=== PATIENT | female | born 1945 | race Caucasian/White ===

== ENCOUNTER 2017-04-03 08:55 | Day surgery (SDC) | payer MEDICARE, BC ==
[2017-04-03] MEDS ORDERED: ONDANSETRON HCL INJ/PF 4 MG/2 ML SDV ONE (08:58)
[2017-04-03] MEDS ORDERED: DIPHENHYDRAMINE HCL 50 MG/ML VIAL ONE (08:58)
[2017-04-03] MEDS ORDERED: NALOXONE HCL INJ/PF 0.4 MG/1 ML SDV ONE (08:58)
[2017-04-03] MEDS ORDERED: MIDAZOLAM 2 MG/2 ML INJ ONE (08:59)
[2017-04-03] MEDS ORDERED: EPINEPHRINE INJ 1 MG/10 ML DISP.SYRIN ONE (08:59)
[2017-04-03] MEDS ORDERED: FENTANYL CITRATE INJ/PF 100 MCG/2 ML AMPUL ONE (08:59)
[2017-04-03] MEDS ORDERED: GLUCAGON,HUMAN RECOMB 1 MG INJ ONE (08:59)
[2017-04-03] MEDS ORDERED: FLUMAZENIL INJ 0.5 MG/5 ML VIAL IV ONE (08:59)
[2017-04-03] MEDS: MIDAZOLAM 2 MG/2 ML INJ ONE ×2 (09:21→09:25)
--- NOTE | 2017-04-03 09:41 | Operative Report ---
Operative Report DATE OF SURGERY: 04/03/17 Operative Report: The risks, benefits and alternatives of the procedure including risks of bleeding, perforation requiring surgery are explained to the patient detail and informed consent was obtained. Patient was placed in the left, lateral decubital position. Timeout was called. Conscious sedation medications are provided. An Olympus videoscope was inserted into the patient's rectum. The scope was then gradually advanced all the way to the anastomosis. Patient does have a side to side anastomosis. Scope was then withdrawn, retroflexion maneuver is performed. PREOPERATIVE DIAGNOSIS: Personal history of polyps. Previous colon resection POSTOPERATIVE DIAGNOSIS: 2 polyps removed via snare polypectomy slightly distal to the anastomotic site. Both polyps are retrieved. OPERATION: Colonoscopy with snare polypectomy SURGEON: DILMA BATISTA ANESTHESIA: Moderate Sedation - 4 mg of Versed, 75 mcg of fentanyl. Conscious sedation monitoring time 30 minutes. TISSUE REMOVED OR ALTERED: Polyps retrieved. COMPLICATIONS: None. ESTIMATED BLOOD LOSS: None. INTRAOPERATIVE FINDINGS: As described above. PROCEDURE: Patient tolerated the procedure well. No immediate postprocedure complications are noted. Patient discharged in good condition. Discharge date 04/03/2017. Discharge diet: Regular. Discharge activity: Regular. 2-3 week follow-up to discuss findings. We will wait on pathology. Patient is instructed to call the office or proceed to the emergency room should there be any further problems or questions. 3 year surveillance colonoscopy.
[2017-04-03 10:54] VITALS: BP 112/50
== END 2017-04-03 10:45 | disposition home or self-care (01) ==
LOC: END 08:55
PROVIDERS: ATTEND Internal Medicine Gastroenterology
PROC: 0DBE8ZX Excision of Large Intestine, Via Natural or Artificial Opening Endoscopic, Diagnostic (ICD-10-PCS; principal; 2017-04-03 10:00)
DX: K63.5 Polyp of colon (principal); Z90.49 Acquired absence of other specified parts of digestive tract; I10 Essential (primary) hypertension; K21.9 Gastro-esophageal reflux disease without esophagitis; Z88.2 Allergy status to sulfonamides; Z88.5 Allergy status to narcotic agent
CPT/HCPCS: 45385; 88305 ×2; J2250; J3010; J1610; J0171; J1200; J2310; J2405; J3490

== ENCOUNTER → 2017-09-04 | Outpatient (CLI) | payer MEDICARE, BC ==
--- NOTE | 2017-09-04 16:30 | RADIOLOGY REPORT (SQ) ---
EXAM DESCRIPTION: BONE SURVEY COMPLETE COMPLETED DATE/TIME: 09/04/2017 3:07 pm REASON FOR STUDY: D47.2 MONOCLONAL GAMMOPATHY COMPARISON: None. TECHNIQUE: Images of the axial and proximal appendicular skeleton are obtained, along with lateral s kull and frontal chest films. LIMITATIONS: Overlying bowel gas. FINDINGS: AP CHEST: No bony findings. Lungs are clear. LATERAL SKULL: No worrisome bone lesions. AP BOTH HUMERI: No worrisome bone lesions. TWO-VIEW LUMBAR SPINE: No worrisome bone lesions. TWO-VIEW THORACIC SPINE: No worrisome bone lesions. AP PELVIS: No worrisome bone lesions. AP BOTH FEMURS: No worrisome bone lesions. OTHER: No other significant finding. IMPRESSION: Negative bone survey.
== END ==
LOC: RAD 14:51
PROVIDERS: ATTEND Internal Medicine Hematology & Oncology
DX: D47.2 Monoclonal gammopathy (principal)
CPT/HCPCS: 77075

== ENCOUNTER 2018-09-25 03:49 | Inpatient (IN) | payer MEDICARE, BC ==
[2018-09-25 05:02] LABS: ABSOLUTE LYMPHOCYTES (AUTO) 0.7 10^3/uL (0.5-4.7); ABSOLUTE MONOCYTES (AUTO) 0.7 10^3/uL (0.1-1.4); ABSOLUTE NEUT (AUTO) 6.4 10^3/uL (1.7-8.2); BASOPHILS % (AUTO) 0.1 % (0-2); EOSINOPHILS % (AUTO) 0.1 % (0-6); HEMATOCRIT 35.7 % (36.0-47.0); HEMOGLOBIN 11.8 g/dL (12.0-15.5); LYMPHOCYTES % (AUTO) 9.3 % (13-45); MEAN CORPUSCULAR HEMOGLOBIN 25.6 pg (27.0-33.4); MEAN CORPUSCULAR HGB CONC 32.9 g/dL (32.0-36.0); MEAN CORPUSCULAR VOLUME 78 fl (80-97); PLATELET COUNT 644 10^3/uL (150-450); RED BLOOD COUNT 4.59 10^6/uL (3.72-5.28); RED CELL DISTRIBUTION WIDTH 14.2 % (11.5-14.0); SEGMENTED NEUTROPHILS % (AUTO) 81.5 % (42-78); TOTAL CELLS COUNTED % (AUTO) 100 %; WHITE BLOOD COUNT 7.9 10^3/uL (4.0-10.5)
[2018-09-25 05:23] LABS: ALANINE AMINOTRANSFERASE 38 U/L (9-52); ALBUMIN 4.5 g/dL (3.5-5.0); ALKALINE PHOSPHATASE 111 U/L (38-126); ANION GAP 13 (5-19); ASPARTATE AMINO TRANSFERASE 37 U/L (14-36); BILIRUBIN,DIRECT 0.4 mg/dL (0.0-0.4); BILIRUBIN,TOTAL 1.5 mg/dL (0.2-1.3); BLOOD UREA NITROGEN 41 mg/dL (7-20); CALCIUM 9.7 mg/dL (8.4-10.2); CARBON DIOXIDE 35 mmol/L (22-30); CHLORIDE 91 mmol/L (98-107); GLUCOSE 156 mg/dL (75-110); POTASSIUM 3.6 mmol/L (3.6-5.0); SODIUM 138.5 mmol/L (137-145); TOTAL PROTEIN 7.3 g/dL (6.3-8.2)
[2018-09-25] MEDS ORDERED: RINGERS SOLUTION,LACTATED 1,000 ML IV ONE ×2 (05:35→06:28)
[2018-09-25] MEDS ORDERED: ONDANSETRON HCL INJ/PF 4 MG/2 ML SDV IV ONE (05:35)
--- NOTE | 2018-09-25 05:38 | ER Document Report ---
ED Medical Screen (RME) - General Chief Complaint: Nausea/Vomiting Stated Complaint: NAUSEA/VOMITING Time Seen by Provider: 09/25/18 05:34 Notes: Patient is a 73-year-old female who presents to the emergency department with a chief complaint of vomiting. She states that her symptoms started 2 days ago. She is also complaining of abdominal cramping. She has a history of colon cancer with a colon resection and states that she does get constipated at times. She has had this before. TRAVEL OUTSIDE OF THE [place] IN LAST 30 DAYS: No - Related Data Allergies/Adverse Reactions: Sulfa (Sulfonamide Antibiotics) Allergy (Verified 04/03/17 09:06) Generalized Itching codeine [Codeine] Adverse Reaction (Mild, Verified 04/03/17 09:06) Nausea Past Medical History - Past Medical History Cardiac Medical History: Reports: Hx Hypertension Denies: Hx Coronary Artery Disease, Hx Heart Attack Pulmonary Medical History: Denies: Hx Asthma, Hx Bronchitis, Hx COPD, Hx Pneumonia Neurological Medical History: Denies: Hx Cerebrovascular Accident, Hx Seizures Renal/ Medical History: Denies: Hx Peritoneal Dialysis GI Medical History: Reports: Hx Hiatal Hernia. Denies: Hx Hepatitis, Hx Ulcer Musculoskeltal Medical History: Denies Hx Arthritis Infectious Medical History: Denies: Hx Hepatitis Past Surgical History: Reports: Hx Abdominal Surgery, Hx Appendectomy, Hx Cholecystectomy, Hx Hysterectomy. Denies: Hx Mastectomy, Hx Open Heart Surgery, Hx Pacemaker - Immunizations Hx Diphtheria, Pertussis, Tetanus Vaccination: Yes Physical Exam - Vital signs Vitals: Temp Pulse Resp BP Pulse Ox 98.2 F 105 H 18 117/56 L 100 09/25/18 03:57 09/25/18 03:57 09/25/18 03:57 09/25/18 03:57 09/25/18 03:57 - Abdominal Tenderness: Tender - Generalized Course - Vital Signs Vital signs: Temp Pulse Resp BP Pulse Ox 98.2 F 105 H 18 117/56 L 100 09/25/18 03:57 09/25/18 03:57 09/25/18 03:57 09/25/18 03:57 09/25/18 03:57 - Laboratory Result Diagrams: 09/25/18 04:57 09/25/18 04:57 Laboratory results interpreted by me: 09/25/18 09/25/18 04:57 04:57 Hgb 11.8 L Hct 35.7 L MCV 78 L MCH 25.6 L RDW 14.2 H Plt Count 644 H Seg Neutrophils % 81.5 H Lymphocytes % 9.3 L Chloride 91 L Carbon Dioxide 35 H BUN 41 H Est GFR (Non-Af Amer) 56 L Glucose 156 H Total Bilirubin 1.5 H AST 37 H Doctor's Discharge - Discharge Referrals: PATRICIA QUARLES MD [Primary Care Provider] - Follow up as needed
--- NOTE | 2018-09-25 06:54 | ER Document Report ---
ED General - General Chief Complaint: Nausea/Vomiting Stated Complaint: NAUSEA/VOMITING Time Seen by Provider: 09/25/18 05:34 Notes: Patient is a 73-year-old female with history of colon resection that presents to the emergency department for chief complaint of abdominal pain, nausea and vomiting. Patient reports that her symptoms started around 11 AM on Sunday, she is had 4-5 episodes of vomiting per day, she has not been passing gas and not had a bowel movement since then, she states and trying to have a bowel movement, but nothing comes out. Has had multiple colon resections and anastomoses in the past. She is currently rating her pain as a 6 out of 10 describes as a constant aching sensation across her abdomen, and is diffuse. She denies noting any fevers, chills, night sweats, dysuria, hematuria, chest pain or shortness of breath. Past Medical History: Colon cancer status post resection in remission Past Surgical History: Multiple abdominal surgeries including 2 colon resections with anastomosis, cholecystectomy, hysterectomy Social History: Denies tobacco, alcohol or drug use. Family History: Reviewed and noncontributory for presenting illness Allergies: Reviewed, see documented allergy list. REVIEW OF SYSTEMS: Other than noted above, the 12 point review of systems was reviewed with the patient and were negative, all pertinent findings are included in the HPI. PHYSICAL EXAMINATION: Vital signs reviewed, nursing noted reviewed. GENERAL: Elderly female, appears uncomfortable on my exam HEAD: Atraumatic, normocephalic. EYES: Eyes appear normal, extraocular movements intact, sclera anicteric, conjunctiva are normal. ENT: nares patent, oropharynx clear without exudates. Moist mucous membranes. NECK: Normal range of motion, supple without lymphadenopathy LUNGS: Breath sounds clear to auscultation bilaterally and equal. No wheezes rales or rhonchi. HEART: Regular rate and rhythm without murmurs ABDOMEN: Soft, mildly distended, and tender to palpate diffusely, normoactive bowel sounds. No rebound, guarding, or rigidity. No masses appreciated. EXTREMITIES: Nontender, good range of motion, no pitting or edema. NEUROLOGICAL: No focal neurological deficits. Moves all extremities spontan eously Motor and sensory grossly intact on exam. PSYCH: Normal mood, normal affect. SKIN: Warm, Dry, normal turgor, no rashes or lesions noted on exposed skin TRAVEL OUTSIDE OF THE [place] IN LAST 30 DAYS: No - Related Data Allergies/Adverse Reactions: Sulfa (Sulfonamide Antibiotics) Allergy (Verified 04/03/17 09:06) Generalized Itching codeine [Codeine] Adverse Reaction (Mild, Verified 04/03/17 09:06) Nausea Past Medical History - Social History Smoking Status: Unknown if Ever Smoked Family History: Reviewed & Not Pertinent Patient has suicidal ideation: No Patient has homicidal ideation: No - Past Medical History Cardiac Medical History: Reports: Hx Hypertension Denies: Hx Coronary Artery Disease, Hx Heart Attack Pulmonary Medical History: Denies: Hx Asthma, Hx Bronchitis, Hx COPD, Hx Pneumonia Neurological Medical History: Denies: Hx Cerebrovascular Accident, Hx Seizures Renal/ Medical History: Denies: Hx Peritoneal Dialysis GI Medical History: Reports: Hx Hiatal Hernia. Denies: Hx Hepatitis, Hx Ulcer Musculoskeletal Medical History: Denies Hx Arthritis Infectious Medical History: Denies: Hx Hepatitis Past Surgical History: Reports: Hx Abdominal Surgery, Hx Appendectomy, Hx Cholecystectomy, Hx Hysterectomy. Denies: Hx Mastectomy, Hx Open Heart Surgery, Hx Pacemaker - Immunizations Hx Diphtheria, Pertussis, Tetanus Vaccination: Yes Hx Pneumococcal Vaccination: 06/24/14 Physical Exam - Vital signs Vitals: Temp Pulse Resp BP Pulse Ox 98.2 F 105 H 18 117/56 L 100 09/25/18 03:57 09/25/18 03:57 09/25/18 03:57 09/25/18 03:57 09/25/18 03:57 Course - Re-evaluation Re-evalutation: Patient seen and examined vital signs reviewed. Laboratory data and imaging were ordered as appropriate for the patient's presenting symptoms and complaint, with consideration of any critical or life threatening conditions that may be associated with their obtained history and exam as noted above. Patient was treated with IV fluid bolusing x2, given Zofran for her nausea, and a dose of Phenergan when she was having continued nausea after receiving oral contrast dye. Initially blood work and KUB was ordered, KUB demonstrates some dilated loops of small bowel, therefore CT of the abdomen and pelvis with IV and oral contrast was ordered, this redemonstrated possible partial obstruction versus ileus, with narrowing at her distal anastomosis site. Results were reviewed when available and demonstrated no leukocytosis, did demonstrate prerenal azotemia, I discussed this case with the surgeon on-call, who came to evaluate the patient, he is considering small bowel follow-through study however the patient still having persistent nausea so he decided to admit the patient for observation, and further evaluation. On her UA it was noted to have positive nitrates in her urine, this will be sent for culture, she was given a dose of Rocephin to treat this as well. The patient was re-evaluated and was improved after treatments, but still having some discomfort Evaluation was most consistent with partial small bowel obstruction, abdominal pain. Results were discussed with the patient at this point after careful consideration I feel that that patient should be admitted to the hospital. This was discussed with the patient that it is in the best interest for their care to be admitted for further evaluation and management. Patient agreed with this plan of care. A call was placed to the admitted physician, Dr. Lovelace who graciously accepted the patient onto their service. *Note is created using voice recognition software and may contain spelling, syntax or grammatical errors. Laboratory 09/25/18 09/25/18 09/25/18 04:57 04:57 07:40 WBC 7.9 RBC 4.59 Hgb 11.8 L Hct 35.7 L MCV 78 L MCH 25.6 L MCHC 32.9 RDW 14.2 H Plt Count 644 H Seg Neutrophils % 81.5 H Lymphocytes % 9.3 L Monocytes % 9.0 Eosinophils % 0.1 Basophils % 0.1 Absolute Neutrophils 6.4 Absolute Lymphocytes 0.7 Absolute Monocytes 0.7 Absolute Eosinophils 0.0 Absolute Basophils 0.0 Sodium 138.5 Potassium 3.6 Chloride 91 L Carbon Dioxide 35 H Anion Gap 13 BUN 41 H Creatinine 0.98 Est GFR ( Amer) > 60 Est GFR (Non-Af Amer) 56 L Glucose 156 H Calcium 9.7 Total Bilirubin 1.5 H Direct Bilirubin 0.4 Neonat Total Bilirubin Not Reportable Neonat Direct Bilirubin Not Reportable Neonat Indirect Bili Not Reportable AST 37 H ALT 38 Alkaline Phosphatase 111 Total Protein 7.3 Albumin 4.5 Urine Color DARK YELLOW Urine Appearance CLOUDY Urine pH 5.0 Ur Specific [place] 1.016 Urine Protein 30 H Urine Glucose (UA) NEGATIVE Urine Ketones NEGATIVE Urine Blood NEGATIVE Urine Nitrite POSITIVE H Urine Bilirubin NEGATIVE Urine Urobilinogen 2.0 H Ur Leukocyte Esterase TRACE H Urine WBC (Auto) 22 Urine RBC (Auto) 1 U Hyaline Cast (Auto) 18 Urine Bacteria (Auto) 3+ Squamous Epi Cells Auto 25 Urine Mucus (Auto) OCC Urine Ascorbic Acid NEGATIVE Abdomen/Pelvis CT 09/25/18 00:00 IMPRESSION: Ileus or partial small bowel obstruction status post multiple bowel surgeries. No high-grade obstruction. Abdomen X-Ray 09/25/18 06:29 IMPRESSION: Difficult to exclude developing small bowel obstruction. Recommend CT. KUB X-Ray 09/25/18 12:03 IMPRESSION: NG tube appears to be in satisfactory position. - Vital Signs Vital signs: Temp Pulse Resp BP Pulse Ox 98.1 F 78 18 148/62 H 99 09/25/18 13:42 09/25/18 13:42 09/25/18 13:42 09/25/18 13:42 09/25/18 13:42 - Laboratory Result Diagrams: 09/25/18 04:57 09/25/18 04:57 Laboratory results interpreted by me: 09/25/18 09/25/18 09/25/18 04:57 04:57 07:40 Hgb 11.8 L Hct 35.7 L MCV 78 L MCH 25.6 L RDW 14.2 H Plt Count 644 H Seg Neutrophils % 81.5 H Lymphocytes % 9.3 L Chloride 91 L Carbon Dioxide 35 H BUN 41 H Est GFR (Non-Af Amer) 56 L Glucose 156 H Total Bilirubin 1.5 H AST 37 H Urine Protein 30 H Urine Nitrite POSITIVE H Urine Urobilinogen 2.0 H Ur Leukocyte Esterase TRACE H Discharge - Discharge Clinical Impression: Partial small bowel obstruction UTI (urinary tract infection) Qualifiers: Urinary tract infection type: site unspecified Hematuria presence: without hematuria Qualified Code(s): N39.0 - Urinary tract infection, site not specified Abdominal pain Qualifiers: Abdominal location: unspecified location Qualified Code(s): R10.9 - Unspecified abdominal pain Nausea and vomiting Qualifiers: Vomiting type: unspecified Vomiting Intractability: unspecified Qualified Code(s): R11.2 - Nausea with vomiting, unspecified Condition: Stable Disposition: ADMITTED OBSERVATION Admitting Provider: Surgicalist - Dr. Lovelace Unit Admitted: Surgical Floor
--- NOTE | 2018-09-25 07:21 | RADIOLOGY REPORT (SQ) ---
CLINICAL HISTORY: abdominal pain, vomiting COMPARISON: None. TECHNIQUE: XR ABDOMEN 2 VIEWS SUPINE ERECT 09/25/2018 6:29 AM RUG SIZER FINDINGS: There are several mildly dilated small bowel loops in the central abdomen. There are extensive surgical clips throughout the pelvis and lower abdomen with suture lines in the right lower quadrant and at the level of the rectum. There are no abnormal radiopaque foreign bodies or abnormal calcifications. Osseous structures are grossly unremarkable. IMPRESSION: Difficult to exclude developing small bowel obstruction. Recommend CT.
[2018-09-25 08:11] LABS: APPEARANCE,URINE CLOUDY; BILIRUBIN,URINE NEGATIVE (NEGATIVE); GLUCOSE, URINE NEGATIVE (NEGATIVE); KETONES,URINE NEGATIVE (NEGATIVE); LEUKOCYTE ESTERASE,URINE TRACE (NEGATIVE); NITRITE,URINE POSITIVE (NEGATIVE); PROTEIN,URINE 30 mg/dL (NEGATIVE); URINE SPECIFIC GRAVITY 1.016
[2018-09-25 08:12] LABS: COLOR,URINE DARK YELLOW
[2018-09-25] MEDS ORDERED: CEFTRIAXONE INJ 1000 MG VIAL IV ONE (08:21)
[2018-09-25] MEDS ORDERED: PROMETHAZINE HCL INJ 25 MG/1 ML VIAL IV ONE (09:27)
--- NOTE | 2018-09-25 10:46 | RADIOLOGY REPORT (SQ) ---
EXAM DESCRIPTION: CT ABD/PELVIS WITH IV ORAL COMPLETED DATE/TIME: 09/25/2018 10:32 am REASON FOR STUDY: abdominal pain, possible obstruction COMPARISON: 05/26/2014 TECHNIQUE: CT scan of the abdomen and pelvis performed using helical scanning technique with dynamic intravenous contrast injection. No oral contrast. Images reviewed with lung, soft tissue, and bone windows. Reconstructed coronal and sagittal MPR images reviewed. Delayed images for evaluation of the urinary system also acquired. All images stored on PACS. All CT scanners at this facility use dose modulation, iterative reconstruction, and/or weight based d osing when appropriate to reduce radiation dose to as low as reasonably achievable (ALARA). [facility]: Dose Right [facility]: CareDose [facility]: Dose Right [facility]: Teradose 4D [facility]: [employer] CONTRAST TYPE AND DOSE: contrast/concentration: Isovue 350.00 mg/ml; Total Contrast Delivered: 57.0 ml; Total Saline Delivered: 65.0 ml RENAL FUNCTION: GFR 56 RADIATION DOSE: CT Rad equipment meets quality standard of care and radiation dose reduction techniq ues were employed. CTDIvol: 4.8 - 5.0 mGy. DLP: 503 mGy-cm.. LIMITATIONS: Positioning. FINDINGS: LOWER CHEST: No significant findings. No nodules or infiltrates. LIVER: Normal size. No masses. No dilated ducts. SPLEEN: Normal size. No focal lesions. PANCREAS: No masses. No significant calcifications. No adjacent inflammation or peripancreatic fluid collections. Pancreatic duct not dilated. GALLBLADDER: Surgically absent. ADRENAL GLANDS: No significant masses or asymmetry. RIGHT KIDNEY AND URETER: No solid masses. No significant calcifications. No hydronephrosis or hyd roureter. LEFT KIDNEY AND URETER: No solid masses. No significant calcifications. No hydronephrosis or hydr oureter. AORTA AND VESSELS: No aneurysm. No dissection. Renal arteries, SMA, celiac without stenosis. RETROPERITONEUM: No retroperitoneal adenopathy, hemorrhage or masses. BOWEL AND PERITONEAL CAVITY: Mild gastric distention. Mildly dilated loops of small bowel status pos t several bowel anastomosis. At least 2 transition points, 1 in the right lower quadrant series 601, image 37, another in the left lower quadrant series 601, image 35. Fecal material within nondilated descending colon. No free air or ascites. APPENDIX: Surgically absent. PELVIS: No mass. No free fluid. Normal bladder. ABDOMINAL WALL: No masses. No hernias. BONES: Nothing acute. OTHER: No other significant finding. IMPRESSION: Ileus or partial small bowel obstruction status post multiple bowel surgeries. No high- grade obstruction. TECHNICAL DOCUMENTATION: JOB ID: [id number] Quality ID # [id number]: Final reports with documentation of one or more dose reduction techniques (e.g., Au tomated exposure control, adjustment of the mA and/or kV according to patient size, use of iterative reconstruction technique) 2010 [employer]- All Rights Reserved Reading location - IP/workstation name: [email or web address]
--- NOTE | 2018-09-25 12:01 | PDOC H&P ---
History of Present Illness Admission Date/PCP: PATRICIA QUARLES MD Patient complains of: Abdominal pain nausea and vomiting History of Present Illness: SANDY WILL is a 73 year old female with a 2-day history of abdominal bloating nausea and vomiting. Because of increasing abdominal pain and distention she came to the emergency room today. She has had these episodes previous at home which have resolved spontaneously but this 1 has not. Past Medical History Cardiac Medical History: Reports: Hypertension Denies: Coronary Artery Disease, Myocardial Infarction Pulmonary Medical History: Denies: Asthma, Bronchitis, Chronic Obstructive Pulmonary Disease (COPD), Pneumonia Neurological Medical History: Denies: Seizures GI Medical History: Reports: Hiatal Hernia Denies: Hepatitis Musculoskeltal Medical History: Denies: Arthritis Hematology: Reports: Anemia - RECENTLY B12 INJ (FOR 4 WEEKS) Denies: Sickle Cell Disease Past Surgical History Past Surgical History: Patient has a history of colectomy x3 for multiple colon cancers Past Surgical History: Reports: Appendectomy, Cholecystectomy, Hysterectomy Denies: Amputation, Mastectomy, Pacemaker Social History Smoking Status: Unknown if Ever Smoked Family History Family History: Reviewed & Not Pertinent Parental Family History Reviewed: No Children Family History Reviewed: No - Noncontributory Sibling(s) Family History Reviewed.: No - Noncontributory Medication/Allergy Home Medications: Esomeprazole Magnesium [Nexium] 40 mg PO DAILY 06/02/14 Estrogens, Conjugated [Premarin] 1.25 mg PO DAILY 06/02/14 Valsartan [Diovan 40 mg Tablet] 40 mg PO DAILY 06/02/14 Multivit with Calcium,Iron,Min [Multiple Vitamins For Women] 1 each PO DAILY 03/29/17 Vit B 12 1 mcg IM Q7D 03/29/17 Ergocalciferol (Vitamin D2) [Vitamin D] 50,000 unit PO 04/03/17 Allergies/Adverse Reactions: Sulfa (Sulfonamide Antibiotics) Allergy (Verified 04/03/17 09:06) Generalized Itching codeine [Codeine] Adverse Reaction (Mild, Verified 04/03/17 09:06) Nausea Physical Exam Vital Signs: Temp Pulse Resp BP Pulse Ox 97.9 F 79 18 151/44 H 98 09/25/18 07:45 09/25/18 11:02 09/25/18 11:02 09/25/18 11:09/25/18 11:02 Intake & Output 09/24/18 09/25/18 09/26/18 06:59 06:59 06:59 Intake Total 1000 1000 Balance 1000 1000 Weight 50 kg General appearance: PRESENT: mild distress Head exam: PRESENT: normocephalic Eye exam: PRESENT: EOMI, PERRLA Mouth exam: PRESENT: dry mucosa Respiratory exam: PRESENT: symmetrical, unlabored Cardiovascular exam: PRESENT: RRR Pulses: PRESENT: normal carotid pulses Vascular exam: PRESENT: normal capillary refill GI/Abdominal exam: PRESENT: distended, firm, guarding, other - Dental exam shows that she is tender lower quadrant with palpation a firm abdomen with distention no evidence of any peritoneal signs Extremities exam: PRESENT: full ROM Musculoskeletal exam: PRESENT: ambulatory Neurological exam: PRESENT: alert, awake, oriented to time, oriented to situation Skin exam: PRESENT: dry Results Laboratory Results: 09/25/18 04:57 09/25/18 04:57 09/25/18 09/25/18 09/25/18 04:57 04:57 07:40 WBC 7.9 RBC 4.59 Hgb 11.8 L Hct 35.7 L MCV 78 L MCH 25.6 L MCHC 32.9 RDW 14.2 H Plt Count 644 H Seg Neutrophils % 81.5 H Lymphocytes % 9.3 L Monocytes % 9.0 Eosinophils % 0.1 Basophils % 0.1 Absolute Neutrophils 6.4 Absolute Lymphocytes 0.7 Absolute Monocytes 0.7 Absolute Eosinophils 0.0 Absolute Basophils 0.0 Sodium 138.5 Potassium 3.6 Chloride 91 L Carbon Dioxide 35 H Anion Gap 13 BUN 41 H Creatinine 0.98 Est GFR ( Amer) > 60 Est GFR (Non-Af Amer) 56 L Glucose 156 H Calcium 9.7 Total Bilirubin 1.5 H AST 37 H ALT 38 Alkaline Phosphatase 111 Total Protein 7.3 Albumin 4.5 Urine Color DARK YELLOW Urine Appearance CLOUDY Urine pH 5.0 Ur Specific [place] 1.016 Urine Protein 30 H Urine Glucose (UA) NEGATIVE Urine Ketones NEGATIVE Urine Blood NEGATIVE Urine Nitrite POSITIVE H Ur Leukocyte Esterase TRACE H Urine WBC (Auto) 22 Urine RBC (Auto) 1 Impressions: Abdomen/Pelvis CT 09/25/18 00:00 IMPRESSION: Ileus or partial small bowel obstruction status post multiple bowel surgeries. No high-grade obstruction. Abdomen X-Ray 09/25/18 06:29 IMPRESSION: Difficult to exclude developing small bowel obstruction. Recommend CT. Assessment & Plan - Plan Summary Plan Summary: Is a 73-year-old female who is undergone 3 operations for her separate colon cancers on CT scan looks as though she has had a subtotal colectomy with ileal anal anastomosis versus a ileosigmoid anastomosis. There is a large amount of stool in her stool small bowel just proximal to the anastomosis which may obstructed secondary to anastomotic stricture. Multiple loops of small bowel that are dilated as well as a large amount of gastric contents. Pression small bowel obstruction possibly secondary to adhesions versus a stenotic stricture And will give the patient enemas in the emergency room and admit her for observation she may need diagnostic colonoscopy is laparotomy small bowel obstruction
[2018-09-25] MEDS ORDERED: PROMETHAZINE HCL INJ 25 MG/1 ML VIAL IV PRN (12:03)
[2018-09-25] MEDS ORDERED: FAMOTIDINE INJ/PF 20 MG/2 ML SDV IV ONE (12:15)
[2018-09-25] MEDS ORDERED: PHARMACY COMMUNICATION ORDER MC NR (12:15)
[2018-09-25] MEDS ORDERED: PROPOFOL INJ 200 MG/20 ML VIAL IV ONE (15:18)
--- NOTE | 2018-09-25 15:36 | RADIOLOGY REPORT (SQ) ---
EXAM DESCRIPTION: KUB/ABDOMEN (SINGLE VIEW) COMPLETED DATE/TIME: 09/25/2018 2:25 pm REASON FOR STUDY: Check Placement of NG Tube COMPARISON: 09/25/2018 NUMBER OF VIEWS: One view. TECHNIQUE: Supine radiographic image of the abdomen acquired. LIMITATIONS: None. FINDINGS: BOWEL GAS PATTERN: NG tube is in place. Tip overlies the right upper quadrant probably wi thin stomach. There is less small-bowel distention. CALCIFICATIONS: No suspicious calcifications. SOFT TISSUES: No gross mass or suggestion of organomegaly. HARDWARE: Multiple surgical clips are present throughout the abdomen and pelvis. BONES: No acute fracture. No worrisome bone lesions. OTHER: There is contrast in the right left collecting systems from recent CT. IMPRESSION: NG tube appears to be in satisfactory position. TECHNICAL DOCUMENTATION: JOB ID: [id number] [email or web address]- All Rights Reserved Reading location - IP/workstation name: [email or web address]
--- NOTE | 2018-09-25 16:27 | Operative Report ---
Operative Report DATE OF SURGERY: 09/25/18 - colonoscopy PREOPERATIVE DIAGNOSIS: r/o colonic obstruction POSTOPERATIVE DIAGNOSIS: anastomotic stricture OPERATION: colonoscopy with anastomotic dilation. SURGEON: DONNA MCDANIELS ANESTHESIA: LMAC TISSUE REMOVED OR ALTERED: none COMPLICATIONS: none ESTIMATED BLOOD LOSS: less than 5cc INTRAOPERATIVE FINDINGS: anastomotic narrowing at approx 10 cm. digitally dilated PROCEDURE: He was brought to the room in awake alert stable condition in a left lateral decubitus position after local MAC anesthesia. the pediatric colonoscope was placed into the rectum after digital examination there appeared to be at 10 cm a narrowing of the previous ileal anal anastomosis. The colonoscope easily passed through the anastomosis but the it was in fact narrowed and was dilated with digital dilation to allow the scope to pass easily We passed the scope distal to the anastomosis to a distance of approximately 60 cm there was no evidence of any obstruction passes in the small bowel. The scope was then slowly removed and examination of the distal small bowel of 60 cm there appeared to be normal without any evidence of pathology. He was then placed in a fine position which completed the procedure may brought to the procedure was less than 5 cc was transferred to recovery in stable condition
[2018-09-25] MEDS: POTASSI CL 30 MEQ/D5-1/2NS 1L 30 MEQ/1,000 ML RTUINJ IV PRN (18:03)
[2018-09-25] MEDS: FAMOTIDINE INJ/PF 20 MG/2 ML SDV IV SCH (21:51)
[2018-09-26] MEDS ORDERED: POTASSI CL 30 MEQ/D5-1/2NS 1L 30 MEQ/1,000 ML RTUINJ IV ONE (01:10)
[2018-09-26] MEDS: POTASSI CL 30 MEQ/D5-1/2NS 1L 30 MEQ/1,000 ML RTUINJ IV PRN ×3 (01:14→18:27)
[2018-09-26 06:41] LABS: ABSOLUTE LYMPHOCYTES (AUTO) 0.8 10^3/uL (0.5-4.7); ABSOLUTE MONOCYTES (AUTO) 0.7 10^3/uL (0.1-1.4); BASOPHILS % (AUTO) 0.2 % (0-2); EOSINOPHILS % (AUTO) 0.6 % (0-6); HEMATOCRIT 31.8 % (36.0-47.0); HEMOGLOBIN 10.4 g/dL (12.0-15.5); LYMPHOCYTES % (AUTO) 17.9 % (13-45); MEAN CORPUSCULAR HEMOGLOBIN 25.2 pg (27.0-33.4); MEAN CORPUSCULAR HGB CONC 32.8 g/dL (32.0-36.0); MEAN CORPUSCULAR VOLUME 77 fl (80-97); MONOCYTES % (AUTO) 14.8 % (3-13); PLATELET COUNT 504 10^3/uL (150-450); RED BLOOD COUNT 4.14 10^6/uL (3.72-5.28); RED CELL DISTRIBUTION WIDTH 13.9 % (11.5-14.0); SEGMENTED NEUTROPHILS % (AUTO) 66.5 % (42-78); TOTAL CELLS COUNTED % (AUTO) 100 %; WHITE BLOOD COUNT 4.6 10^3/uL (4.0-10.5)
[2018-09-26 06:53] LABS: ANION GAP 7 (5-19); BLOOD UREA NITROGEN 17 mg/dL (7-20); CALCIUM 8.2 mg/dL (8.4-10.2); CARBON DIOXIDE 31 mmol/L (22-30); CHLORIDE 98 mmol/L (98-107); GLUCOSE 148 mg/dL (75-110); POTASSIUM 3.8 mmol/L (3.6-5.0); SODIUM 135.9 mmol/L (137-145)
--- NOTE | 2018-09-26 08:35 | PDOC CONSULTATION ---
Consultation Consult Date: 09/26/18 Consult reason:: Hematology/Oncology consultation was requested for patient with possible small bowel obstruction and remote history of colon cancer. History of Present Illness Admission Date/PCP: 09/25/18 12:19 PATRICIA QUARLES MD History of Present Illness: SANDY WILL is a 73 year old female who was diagnosed with colon cancer in 1988 and 1990. These were 2 seperate primaries and were both early stage (I-II) and treated with surgery. She did have a short course of chemotherapy in 1990 on clinical trial, but since that time, has had no evidence of recurrent cancer. Her most recent colonoscopy was in 2016. 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 She presented this admission with a 2 day history of nausea and vomiting. Initial studies indicated a SBO, but surgical procedure yesterday did not show any evidence of mechanical obstruction. Today, she states that she is feeling a bit better. She has some abdominal pain. NG tube remains in place. Past Medical History Cardiac Medical History: Reports: Hypertension Denies: Coronary Artery Disease, Myocardial Infarction Pulmonary Medical History: Denies: Asthma, Bronchitis, Chronic Obstructive Pulmonary Disease (COPD), Pneumonia Neurological Medical History: Denies: Seizures Malignancy Medical History: Reports: Colorectal Cancer GI Medical History: Reports: Hiatal Hernia Denies: Hepatitis Musculoskeltal Medical History: Denies: Arthritis Hematology: Reports: Anemia - RECENTLY B12 INJ (FOR 4 WEEKS) Denies: Sickle Cell Disease Past Surgical History Past Surgical History: Reports: Appendectomy, Cholecystectomy, Hysterectomy, Other - Colon resection, skin biopsy Denies: Amputation, Mastectomy, Pacemaker Social History Information Source: Patient Occupation: head cook Lives with: Spouse/Significant other Smoking Status: Never Smoker Frequency of Alcohol Use: None Hx Recreational Drug Use: No Hx Prescription Drug Abuse: No - Advance Directive Resuscitation Status: Full Code Family History Family History: Grandparents with ovarian and prostate cancers. Parental Family History Reviewed: Yes - Mother with lung cancer Children Family History Reviewed: No Sibling(s) Family History Reviewed.: Yes - Sister with diabetes Medication/Allergy Home Medications: Estrogens, Conjugated [Premarin] 1.25 mg PO DAILY 06/02/14 Alendronate Sodium [Fosamax 70 mg Tablet] 70 mg PO DOMINGUEZ@1000 09/25/18 Cholecalciferol (Vitamin D3) [Vitamin D] 50,000 unit PO Q30D 09/25/18 Esomeprazole Magnesium [Nexium] 20 mg PO DAILY 09/25/18 Meloxicam [Mobic] 15 mg PO DAILY 09/25/18 Prednisone [Deltasone 1 mg Tablet] 1 mg PO DAILY 09/25/18 Valsartan/Hydrochlorothiazide [Valsartan-Hctz 80-12.5 mg Tab] 1 each PO DAILY 09/25/18 Allergies/Adverse Reactions: Sulfa (Sulfonamide Antibiotics) Allergy (Verified 04/03/17 09:06) Generalized Itching codeine [Codeine] Adverse Reaction (Mild, Verified 04/03/17 09:06) Nausea Review of Systems Constitutional: ABSENT: fever(s), headache(s) Eyes: ABSENT: visual disturbances Ears: ABSENT: hearing changes Nose, Mouth, and Throat: PRESENT: sore throat Cardiovascular: ABSENT: chest pain Respiratory: ABSENT: dyspnea Gastrointestinal: PRESENT: constipation, nausea, vomiting Genitourinary: ABSENT: dysuria Musculoskeletal: PRESENT: back pain Integumentary: ABSENT: rash Neurological: ABSENT: weakness Hematologic/Lymphatic: ABSENT: lymphadenopathy Physical Exam Vital Signs: Temp Pulse Resp BP Pulse Ox 98.3 F 76 18 121/44 L 94 09/26/18 04:04 09/26/18 04:04 09/26/18 04:04 09/26/18 04:04 09/26/18 04:04 Intake & Output 09/25/18 09/26/18 09/27/18 06:59 06:59 06:59 Intake Total 1000 2250 948 Output Total 1125 Balance 1000 1125 948 Weight 50 kg 48.9 kg General appearance: PRESENT: no acute distress, well-developed, well-nourished Exam: 73 year old female. Head exam: PRESENT: atraumatic, normocephalic Eye exam: PRESENT: EOMI, PERRLA Mouth exam: PRESENT: tongue midline Neck exam: ABSENT: lymphadenopathy, tenderness Respiratory exam: PRESENT: clear to auscultation mar, unlabored Cardiovascular exam: PRESENT: RRR. ABSENT: systolic murmur GI/Abdominal exam: PRESENT: hypoactive bowel sounds, soft, tenderness Extremities exam: ABSENT: pedal edema Musculoskeletal exam: PRESENT: normal inspection Neurological exam: PRESENT: alert, awake Psychiatric exam: PRESENT: appropriate affect Skin exam: PRESENT: normal color Results Laboratory Results: 09/26/18 06:16 09/26/18 06:16 09/26/18 09/26/18 06:16 06:16 WBC 4.6 RBC 4.14 Hgb 10.4 L Hct 31.8 L MCV 77 L MCH 25.2 L MCHC 32.8 RDW 13.9 Plt Count 504 H Seg Neutrophils % 66.5 Lymphocytes % 17.9 Monocytes % 14.8 H Eosinophils % 0.6 Basophils % 0.2 Absolute Neutrophils 3.0 Absolute Lymphocytes 0.8 Absolute Monocytes 0.7 Absolute Eosinophils 0.0 Absolute Basophils 0.0 Sodium 135.9 L Potassium 3.8 Chloride 98 Carbon Dioxide 31 H Anion Gap 7 BUN 17 Creatinine 0.55 Est GFR ( Amer) > 60 Est GFR (Non-Af Amer) > 60 Glucose 148 H Calcium 8.2 L Impressions: Abdomen/Pelvis CT 09/25/18 00:00 IMPRESSION: Ileus or partial small bowel obstruction status post multiple bowel surgeries. No high-grade obstruction. Abdomen X-Ray 09/25/18 06:29 IMPRESSION: Difficult to exclude developing small bowel obstruction. Recommend CT. KUB X-Ray 09/25/18 12:03 IMPRESSION: NG tube appears to be in satisfactory position. Status: Image reviewed by me Assessment & Plan - Diagnosis (1) Partial small bowel obstruction Is this a current diagnosis for this admission?: Yes Plan: Currently with NG tube in place. Medical management. (2) UTI (urinary tract infection) Qualifiers: Urinary tract infection type: site unspecified Hematuria presence: without hematuria Qualified Code(s): N39.0 - Urinary tract infection, site not specified Is this a current diagnosis for this admission?: Yes Plan: She received Rocephin x 1 dose in the ED, but this was not continued. I will continue this daily and check Urine culture. (3) Anemia Qualifiers: Other causes of anemia: chronic disease, other Is this a current diagnosis for this admission?: Yes Plan: Anemia has been stable, but micrycotosis and thrombycythemia are new. These may be reactive. I will check anemia panel now. She had bone marrow biopsy last year which was normal.
[2018-09-26] MEDS ORDERED: ROCURONIUM BROMIDE INJ 50 MG/5 ML VIAL IV ONE (08:39)
[2018-09-26] MEDS ORDERED: SUCCINYLCHOLINE CHLORIDE INJ 200 MG/10 ML VIAL ONE (08:39)
[2018-09-26] MEDS ORDERED: ONDANSETRON HCL INJ/PF 4 MG/2 ML SDV ONE (08:39)
[2018-09-26] MEDS ORDERED: DEXAMETHASONE SOD PHOSPHATE INJ 4 MG/1 ML VIAL ONE (08:39)
--- NOTE | 2018-09-26 08:46 | PDOC PROGRESS REPORT ---
Subjective Progress Note for:: 09/26/18 Reason For Visit: SMALL BOWEL OBSTRUCTION Physical Exam Vital Signs: Temp Pulse Resp BP Pulse Ox 99.3 F 82 15 121/58 L 95 09/26/18 08:12 09/26/18 08:12 09/26/18 08:12 09/26/18 08:12 09/26/18 08:12 Intake & Output 09/25/18 09/26/18 09/27/18 06:59 06:59 06:59 Intake Total 1000 2250 948 Output Total 1125 Balance 1000 1125 948 Weight 50 kg 48.9 kg GI/Abdominal exam: PRESENT: distended - pts abd remains distended and more tender in rlq this am hyperactive bowel sounds noted c/w sbo, tenderness Results Laboratory Results: 09/26/18 06:16 09/26/18 06:16 09/26/18 09/26/18 06:16 06:16 WBC 4.6 RBC 4.14 Hgb 10.4 L Hct 31.8 L MCV 77 L MCH 25.2 L MCHC 32.8 RDW 13.9 Plt Count 504 H Seg Neutrophils % 66.5 Lymphocytes % 17.9 Monocytes % 14.8 H Eosinophils % 0.6 Basophils % 0.2 Absolute Neutrophils 3.0 Absolute Lymphocytes 0.8 Absolute Monocytes 0.7 Absolute Eosinophils 0.0 Absolute Basophils 0.0 Sodium 135.9 L Potassium 3.8 Chloride 98 Carbon Dioxide 31 H Anion Gap 7 BUN 17 Creatinine 0.55 Est GFR ( Amer) > 60 Est GFR (Non-Af Amer) > 60 Glucose 148 H Calcium 8.2 L Impressions: Abdomen/Pelvis CT 09/25/18 00:00 IMPRESSION: Ileus or partial small bowel obstruction status post multiple bowel surgeries. No high-grade obstruction. Abdomen X-Ray 09/25/18 06:29 IMPRESSION: Difficult to exclude developing small bowel obstruction. Recommend CT. KUB X-Ray 09/25/18 12:03 IMPRESSION: NG tube appears to be in satisfactory position. Assessment & Plan - Diagnosis (1) Partial small bowel obstruction Is this a current diagnosis for this admission?: Yes - Time Time Spent with patient: 15-24 minutes - Plan Summary Plan Summary: Discussed persistent sbo with pt this am still c/w with sbo discussed plans with pt suggest exploratory laparotomy and lysis of adhesions discussed risks and benifits pt agrees to proceed.
[2018-09-26 08:52] LABS: ABSOLUTE RETICS # 0.112 10^6/uL (0.028-0.122); RETICULOCYTE COUNT (AUTO) 2.67 % (0.66-2.85)
[2018-09-26 09:12] LABS: IRON(TIBC) 44.2 ug/dL (37-170)
[2018-09-26] MEDS ORDERED: CEFTRIAXONE 1 GM/D5W RTU 1 GM/50 ML RTUPB IV SCH (10:00)
[2018-09-26] MEDS: FAMOTIDINE INJ/PF 20 MG/2 ML SDV IV SCH (10:20)
[2018-09-26] MEDS ORDERED: MORPHINE SULFATE 10 MG/ML INJ IV PRN (11:44)
--- NOTE | 2018-09-26 12:54 | RADIOLOGY REPORT (SQ) ---
EXAM DESCRIPTION: ACUTE ABDOMEN SERIES COMPLETED DATE/TIME: 09/26/2018 12:30 pm REASON FOR STUDY: Small bowel obstruction COMPARISON: 09/25/2018 NUMBER OF VIEWS: Three views. TECHNIQUE: Frontal chest, supine abdomen and upright/decubitus abdomen radiographic images acquired. LIMITATIONS: None. FINDINGS: CHEST: Lungs clear of infiltrates. FREE AIR: None. No abnormal gas collections. BOWEL GAS PATTERN: Decompressed previously seen gas dilated bowel loops. Residual gas fluid levels w ithin the midline pelvis. CALCIFICATIONS: No suspicious calcifications. HARDWARE: Enteric tube tip overlies proximal duodenum. Evidence of prior bowel surgeries with multip le chain tashi and surgical clips overlying pelvis. Punctate metallic density overlies right upper quadrant. SOFT TISSUES: No gross mass or suggestion of organomegaly. BONES: No acute fracture. No worrisome bone lesions. OTHER: No other significant finding. IMPRESSION: Improvement in the dilated loops of small bowel with few residual gas fluid levels withi n the pelvis. No evidence of perforation. TECHNICAL DOCUMENTATION: JOB ID: [id number] [employer]- All Rights Reserved Reading location - IP/workstation name: [email or web address]
--- NOTE | 2018-09-26 13:38 | EKG REPORT ---
SEVERITY:- ABNORMAL ECG - SINUS RHYTHM BORDERLINE T ABNORMALITIES, ANTERIOR LEADS BORDERLINE PROLONGED QT INTERVAL : Confirmed by: Erika Liz MD 26-Sep-2018 13:37:54
[2018-09-26] MEDS ORDERED: FENTANYL CITRATE INJ/PF 100 MCG/2 ML AMPUL ONE (20:14)
[2018-09-26] MEDS ORDERED: MIDAZOLAM 2 MG/2 ML INJ ONE ×2 (20:14→22:35)
[2018-09-26] MEDS ORDERED: MORPHINE SULFATE 10 MG/ML INJ ONE ×2 (20:14→22:35)
[2018-09-26] MEDS ORDERED: ACETAMINOPHEN 0 MG/0 ML RTUPB IV ONE (20:15)
[2018-09-26] MEDS ORDERED: PROPOFOL INJ 200 MG/20 ML VIAL IV ONE (20:15)
[2018-09-26] MEDS ORDERED: CEFAZOLIN INJ 1 GM VIAL ONE (20:53)
[2018-09-26] MEDS ORDERED: METRONIDAZOLE 500 MG/NS RTU 500 MG/100 ML RTUPB IV ONE (21:36)
[2018-09-27 00:09] LABS: HEMATOCRIT 25.5 % (36.0-47.0); MEAN CORPUSCULAR HEMOGLOBIN 25.1 pg (27.0-33.4); MEAN CORPUSCULAR HGB CONC 32.3 g/dL (32.0-36.0); MEAN CORPUSCULAR VOLUME 78 fl (80-97); PLATELET COUNT 473 10^3/uL (150-450); RED BLOOD COUNT 3.28 10^6/uL (3.72-5.28); WHITE BLOOD COUNT 2.2 10^3/uL (4.0-10.5)
[2018-09-27 00:10] LABS: HEMOGLOBIN 8.2 g/dL (12.0-15.5)
--- NOTE | 2018-09-27 01:12 | Operative Report ---
Nonrecallable Operative Report DATE OF SURGERY: 09/27/18 PREOPERATIVE DIAGNOSIS: 1. Phlebosclerosis. 2. Hypotension. POSTOPERATIVE DIAGNOSIS: Same as above OPERATION: 1. Ultrasound-guided central venous puncture. 2. Left internal jugular vein central line placement. SURGEON: FREDI FITZGERALD ANESTHESIA: GA TISSUE REMOVED OR ALTERED: None COMPLICATIONS: None apparent ESTIMATED BLOOD LOSS: Minimal PROCEDURE: Drains/implants: Left internal jugular vein central line at 15 cm. Procedure in detail: Patient was laid in the Trendelenburg position in the operating room after the laparotomy was complete. The left neck was prepped and draped in a normal sterile fashion. The left internal jugular vein was identif ied using the ultrasound device. It was compressible with normal flow. The vein was then accessed using the supplied needle. Dark venous, nonpulsatile blood was returned in the syringe. The wire was inserted into the vein easily. The wire was confirmed to be within the lumen of the vein using the ultrasound device. The catheter was then slid over the wire using a modified Seldinger technique. The catheter was sutured to the skin. The catheter was flushed x3 without difficulty. A dressing was placed, and the procedure was concluded. All sponge, instrument, and needle counts were correct x2. Condition: Critical to ICU.
[2018-09-27] MEDS ORDERED: POTASSI CL 30 MEQ/D5-1/2NS 1L 30 MEQ/1,000 ML RTUINJ IV ONE (01:56)
[2018-09-27] MEDS: LORAZEPAM INJ 2 MG/1 ML VIAL IV PRN ×4 (02:12→10:37)
[2018-09-27] MEDS: MORPHINE SULFATE 10 MG/ML INJ IV PRN ×4 (02:12→21:04)
[2018-09-27] MEDS: POTASSI CL 30 MEQ/D5-1/2NS 1L 30 MEQ/1,000 ML RTUINJ IV PRN ×3 (02:29→17:21)
[2018-09-27] MEDS: FAMOTIDINE INJ/PF 20 MG/2 ML SDV IV SCH ×3 (02:32→20:59)
--- NOTE | 2018-09-27 03:02 | RADIOLOGY REPORT (SQ) ---
CLINICAL HISTORY: central line placement COMPARISON: None. 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 Lungs are clear without consolidation, atelectasis, mass or edema. There is no pleural effusion. There is no pneumothorax. There are no acute osseous findings. Endotracheal tube tip is in the lower trachea. NG tube tip is in the stomach. Left IJ central line tip is in the mid SVC. IMPRESSION: No pneumothorax following left IJ central line placement
[2018-09-27 06:47] LABS: HEMATOCRIT 24.9 % (36.0-47.0); MEAN CORPUSCULAR HEMOGLOBIN 25.3 pg (27.0-33.4); MEAN CORPUSCULAR HGB CONC 32.3 g/dL (32.0-36.0); MEAN CORPUSCULAR VOLUME 79 fl (80-97); PLATELET COUNT 344 10^3/uL (150-450); RED BLOOD COUNT 3.17 10^6/uL (3.72-5.28); RED CELL DISTRIBUTION WIDTH 14.2 % (11.5-14.0); WHITE BLOOD COUNT 3.1 10^3/uL (4.0-10.5)
[2018-09-27 06:55] LABS: ALANINE AMINOTRANSFERASE 19 U/L (9-52); ALBUMIN 1.9 g/dL (3.5-5.0); ALKALINE PHOSPHATASE 35 U/L (38-126); ANION GAP 6 (5-19); ASPARTATE AMINO TRANSFERASE 22 U/L (14-36); BILIRUBIN,DIRECT 0.2 mg/dL (0.0-0.4); BILIRUBIN,TOTAL 0.4 mg/dL (0.2-1.3); BLOOD UREA NITROGEN 14 mg/dL (7-20); CARBON DIOXIDE 25 mmol/L (22-30); CHLORIDE 104 mmol/L (98-107); GLUCOSE 188 mg/dL (75-110); POTASSIUM 4.5 mmol/L (3.6-5.0); SODIUM 135.4 mmol/L (137-145); TOTAL PROTEIN 3.7 g/dL (6.3-8.2)
[2018-09-27 07:05] LABS: CALCIUM 6.8 mg/dL (8.4-10.2)
[2018-09-27 07:25] LABS: ABSOLUTE LYMPHOCYTES# (MANUAL) 0.4 10^3/uL (0.5-4.7); ABSOLUTE MONOCYTES # (MANUAL) 0.2 10^3/uL (0.1-1.4); ABSOLUTE NEUTROPHILS# (MANUAL) 2.4 10^3/uL (1.7-8.2); BASOPHILS % (MANUAL) 0 % (0-2); EOSINOPHILS % (MANUAL) 0 % (0-6); LYMPHOCYTES % (MANUAL) 14 % (13-45); MONOCYTES % (MANUAL) 7 % (3-13); SEGMENTED NEUTROPHILS % (MAN) 54 % (42-78); TOTAL CELLS COUNTED 100
[2018-09-27 07:26] LABS: ANISOCYTOSIS SLIGHT; BAND NEUTROPHILS % (MANUAL) 25 % (3-5); PLATELET CLUMPS PRESENT; PLATELET COMMENT ADEQUATE; POLYCHROMASIA SLIGHT; TOXIC GRANULATION SLIGHT; TOXIC VACUOLATION PRESENT
--- NOTE | 2018-09-27 07:29 | Brief Operative Note ---
BRIEF OPERATIVE REPORT DATE OF SURGERY: 09/26/18 TIME OF SURGERY: 22:00 PREOPERATIVE DIAGNOSIS: small bowel obstruction POSTOPERATIVE DIAGNOSIS: small bowel obstruction SURGEON: DONNA MCDANIELS 1ST HIM DIRECTOR: FREDI FITZGERALD FINDINGS: dense adhesions, hostile abdomen. COMPLICATIONS: none ESTIMATED BLOOD LOSS: 300 TISSUE REMOVED OR ALTERED: small bowel TECHNICAL PROCEDURE: see dictationb
--- NOTE | 2018-09-27 07:38 | PDOC PROGRESS REPORT ---
Subjective Progress Note for:: 09/27/18 - pod#1 Reason For Visit: SMALL BOWEL OBSTRUCTION s/p lysis of adhesion Physical Exam Vital Signs: Temp Pulse Resp BP Pulse Ox 98.1 F 112 H 12 96/59 L 100 09/27/18 04:00 09/27/18 02:33 09/27/18 06:03 09/27/18 06:03 09/27/18 06:03 Intake & Output 09/26/18 09/27/18 09/28/18 06:59 06:59 06:59 Intake Total 2250 5448 Output Total 1525 1660 Balance 725 3788 Weight 48.9 kg 50.5 kg General appearance: PRESENT: no acute distress Cardiovascular exam: PRESENT: RRR, tachycardia Pulses: PRESENT: normal femoral pulses GI/Abdominal exam: PRESENT: hypoactive bowel sounds, soft Results Laboratory Results: 09/27/18 06:25 09/27/18 06:25 09/26/18 09/26/18 09/26/18 06:16 06:16 23:44 WBC RBC Hgb Hct MCV MCH MCHC RDW Plt Count Seg Neutrophils % Lymphocytes % Monocytes % Eosinophils % Basophils % Absolute Neutrophils Absolute Lymphocytes Absolute Monocytes Absolute Eosinophils Absolute Basophils Retic Count (auto) 2.67 Absolute Retic 0.112 Sodium Potassium Chloride Carbon Dioxide Anion Gap BUN Creatinine Est GFR ( Amer) Est GFR (Non-Af Amer) Glucose Calcium Iron 44.2 TIBC 381 % Saturation 12 Ferritin 15.60 Total Bilirubin AST ALT Alkaline Phosphatase Total Protein Albumin Vitamin B12 328.0 Folate 18.10 Blood Type A POSITIVE Antibody Screen NEGATIVE 09/26/18 09/27/18 09/27/18 23:44 06:25 06:25 WBC 2.2 L D 3.1 L RBC 3.28 L 3.17 L Hgb 8.2 L D 8.0 L Hct 25.5 L 24.9 L MCV 78 L 79 L MCH 25.1 L 25.3 L MCHC 32.3 32.3 RDW 14.0 14.2 H Plt Count 473 H 344 Seg Neutrophils % Not Reportable Lymphocytes % Not Reportable Monocytes % Not Reportable Eosinophils % Not Reportable Basophils % Not Reportable Absolute Neutrophils Not Reportable Absolute Lymphocytes Not Reportable Absolute Monocytes Not Reportable Absolute Eosinophils Not Reportable Absolute Basophils Not Reportable Retic Count (auto) Absolute Retic Sodium 135.4 L Potassium 4.5 Chloride 104 Carbon Dioxide 25 Anion Gap 6 BUN 14 Creatinine 0.79 Est GFR ( Amer) > 60 Est GFR (Non-Af Amer) > 60 Glucose 188 H Calcium 6.8 L* Iron TIBC % Saturation Ferritin Total Bilirubin 0.4 AST 22 ALT 19 Alkaline Phosphatase 35 L Total Protein 3.7 L Albumin 1.9 L Vitamin B12 Folate Blood Type Antibody Screen Impressions: Abdomen/Pelvis CT 09/25/18 00:00 IMPRESSION: Ileus or partial small bowel obstruction status post multiple bowel surgeries. No high-grade obstruction. Abdomen X-Ray 09/25/18 06:29 IMPRESSION: Difficult to exclude developing small bowel obstruction. Recommend CT. KUB X-Ray 09/25/18 12:03 IMPRESSION: NG tube appears to be in satisfactory position. Acute Abdomen Series 09/26/18 07:00 IMPRESSION: Improvement in the dilated loops of small bowel with few residual gas fluid levels within the pelvis. No evidence of perforation. Chest X-Ray 09/27/18 00:00 IMPRESSION: No pneumothorax following left IJ central line placement Assessment & Plan - Diagnosis (1) Partial small bowel obstruction Is this a current diagnosis for this admission?: Yes - Plan Summary Plan Summary: pt remains stable overnight hct decreased will tnx 2 units prbc, 1 liter ns wheen to extubation consult pulm for vent management.
--- NOTE | 2018-09-27 08:16 | PDOC PROGRESS REPORT ---
Subjective Progress Note for:: 09/27/18 Subjective:: Patient now intubated and sedated in the ICU. Patient seen with Dr. Lovelace at bedside. She underwent extensive surgery last night for lysis of adhesions causing chronic bowel obstructions. Plan is to wean her from the vent today. Reason For Visit: SMALL BOWEL OBSTRUCTION Physical Exam Vital Signs: Temp Pulse Resp BP Pulse Ox 98.1 F 112 H 12 96/59 L 100 09/27/18 04:00 09/27/18 02:33 09/27/18 06:03 09/27/18 06:03 09/27/18 06:03 Intake & Output 09/26/18 09/27/18 09/28/18 06:59 06:59 06:59 Intake Total 2250 5448 Output Total 1525 1660 Balance 725 3788 Weight 48.9 kg 50.5 kg General appearance: PRESENT: well-developed, well-nourished Head exam: PRESENT: normocephalic Respiratory exam: PRESENT: clear to auscultation mar, unlabored Cardiovascular exam: PRESENT: RRR GI/Abdominal exam: PRESENT: firm, hypoactive bowel sounds Extremities exam: ABSENT: pedal edema Neurological exam: PRESENT: other - Sedated on vent. Unresponsive, but with goo d plantar reflexes. Skin exam: PRESENT: normal color Results Laboratory Results: 09/27/18 06:25 09/27/18 06:25 09/26/18 09/26/18 09/26/18 06:16 06:16 23:44 WBC RBC Hgb Hct MCV MCH MCHC RDW Plt Count Seg Neutrophils % Lymphocytes % Monocytes % Eosinophils % Basophils % Absolute Neutrophils Absolute Lymphocytes Absolute Monocytes Absolute Eosinophils Absolute Basophils Retic Count (auto) 2.67 Absolute Retic 0.112 Sodium Potassium Chloride Carbon Dioxide Anion Gap BUN Creatinine Est GFR ( Amer) Est GFR (Non-Af Amer) Glucose Calcium Iron 44.2 TIBC 381 % Saturation 12 Ferritin 15.60 Total Bilirubin AST ALT Alkaline Phosphatase Total Protein Albumin Vitamin B12 328.0 Folate 18.10 Blood Type A POSITIVE Antibody Screen NEGATIVE 09/26/18 09/27/18 09/27/18 23:44 06:25 06:25 WBC 2.2 L D 3.1 L RBC 3.28 L 3.17 L Hgb 8.2 L D 8.0 L Hct 25.5 L 24.9 L MCV 78 L 79 L MCH 25.1 L 25.3 L MCHC 32.3 32.3 RDW 14.0 14.2 H Plt Count 473 H 344 Seg Neutrophils % Not Reportable Lymphocytes % Not Reportable Monocytes % Not Reportable Eosinophils % Not Reportable Basophils % Not Reportable Absolute Neutrophils Not Reportable Absolute Lymphocytes Not Reportable Absolute Monocytes Not Reportable Absolute Eosinophils Not Reportable Absolute Basophils Not Reportable Retic Count (auto) Absolute Retic Sodium 135.4 L Potassium 4.5 Chloride 104 Carbon Dioxide 25 Anion Gap 6 BUN 14 Creatinine 0.79 Est GFR ( Amer) > 60 Est GFR (Non-Af Amer) > 60 Glucose 188 H Calcium 6.8 L* Iron TIBC % Saturation Ferritin Total Bilirubin 0.4 AST 22 ALT 19 Alkaline Phosphatase 35 L Total Protein 3.7 L Albumin 1.9 L Vitamin B12 Folate Blood Type Antibody Screen Impressions: Abdomen/Pelvis CT 09/25/18 00:00 IMPRESSION: Ileus or partial small bowel obstruction status post multiple bowel surgeries. No high-grade obstruction. Abdomen X-Ray 09/25/18 06:29 IMPRESSION: Difficult to exclude developing small bowel obstruction. Recommend CT. KUB X-Ray 09/25/18 12:03 IMPRESSION: NG tube appears to be in satisfactory position. Acute Abdomen Series 09/26/18 07:00 IMPRESSION: Improvement in the dilated loops of small bowel with few residual gas fluid levels within the pelvis. No evidence of perforation. Chest X-Ray 09/27/18 00:00 IMPRESSION: No pneumothorax following left IJ central line placement Assessment & Plan - Diagnosis (1) Partial small bowel obstruction Is this a current diagnosis for this admission?: Yes Plan: s/p surgery. (2) UTI (urinary tract infection) Qualifiers: Urinary tract infection type: site unspecified Hematuria presence: without hematuria Qualified Code(s): N39.0 - Urinary tract infection, site not specified Is this a current diagnosis for this admission?: Yes Plan: She has received IV antibiotics. Await urine culture. (3) Anemia Qualifiers: Anemia type: iron deficiency Is this a current diagnosis for this admission?: Yes Plan: Her Ferritin is quite low. Unclear if this is due to malabsorption or chronic blood loss, or both. She will receive 2 units pRBCs and I may arrange IV iron as outpatient in the near future. - Plan Summary Plan Summary: Dr. Haddad will be available over the weekend. Please call if needed.
[2018-09-27] MEDS ORDERED: NORMAL SALINE 1000 ML 1,000 ML IV ONE (08:30)
[2018-09-27] MEDS: LEVALBUTEROL HCL NEB 1.25 MG/3 ML AMPUL NEB SCH ×2 (11:19→16:38)
[2018-09-27] MEDS ORDERED: PROPOFOL 1,000 MG/100 ML INFUS..BTL IV ONE (11:59)
[2018-09-27 12:04] LABS: PATH REVIEW PATHOLOGIST REVIEWED
--- NOTE | 2018-09-27 12:39 | PDOC CONSULTATION ---
Consultation Consult Date: 09/27/18 Attending physician:: DONNA MCDANIELS Consult reason:: Respiratory failure History of Present Illness Admission Date/PCP: 09/25/18 12:19 PATRICIA QUARLES MD History of Present Illness: SANDY WILL is a 73 year old female, presented with 2-3 days of abdominal pain nausea and vomiting is approximately 2 hours status post OR she had lysis for adhesions. 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 Past Medical History Cardiac Medical History: Reports: Hypertension Denies: Coronary Artery Disease, Myocardial Infarction Pulmonary Medical History: Denies: Asthma, Bronchitis, Chronic Obstructive Pulmonary Disease (COPD), Pneumonia Neurological Medical History: Denies: Seizures Malignancy Medical History: Reports: Colorectal Cancer GI Medical History: Reports: Hiatal Hernia Denies: Hepatitis Musculoskeltal Medical History: Denies: Arthritis Hematology: Reports: Anemia - RECENTLY B12 INJ (FOR 4 WEEKS) Denies: Sickle Cell Disease Past Surgical History Past Surgical History: Reports: Appendectomy, Cholecystectomy, Hysterectomy, Other - Colon resection, skin biopsy Denies: Amputation, Mastectomy, Pacemaker Social History Lives with: Spouse/Significant other Smoking Status: Never Smoker Frequency of Alcohol Use: None Hx Recreational Drug Use: No Hx Prescription Drug Abuse: No - Advance Directive Resuscitation Status: Full Code Family History Parental Family History Reviewed: No Children Family History Reviewed: No Sibling(s) Family History Reviewed.: No - [id number] Medication/Allergy Home Medications: Estrogens, Conjugated [Premarin] 1.25 mg PO DAILY 06/02/14 Alendronate Sodium [Fosamax 70 mg Tablet] 70 mg PO DOMINGUEZ@1000 09/25/18 Cholecalciferol (Vitamin D3) [Vitamin D] 50,000 unit PO Q30D 09/25/18 Esomeprazole Magnesium [Nexium] 20 mg PO DAILY 09/25/18 Meloxicam [Mobic] 15 mg PO DAILY 09/25/18 Prednisone [Deltasone 1 mg Tablet] 1 mg PO DAILY 09/25/18 Valsartan/Hydrochlorothiazide [Valsartan-Hctz 80-12.5 mg Tab] 1 each PO DAILY 09/25/18 Allergies/Adverse Reactions: Sulfa (Sulfonamide Antibiotics) Allergy (Verified 04/03/17 09:06) Generalized Itching codeine [Codeine] Adverse Reaction (Mild, Verified 04/03/17 09:06) Nausea Review of Systems ROS unobtainable: Due to endotracheal tube, Due to mental status Physical Exam Vital Signs: Temp Pulse Resp BP Pulse Ox 98.2 F 112 H 12 143/53 H 100 09/27/18 12:00 09/27/18 11:25 09/27/18 11:25 09/27/18 11:25 09/27/18 11:25 Intake & Output 09/26/18 09/27/18 09/28/18 06:59 06:59 06:59 Intake Total 2250 6448 2271 Output Total 1525 1660 200 Balance 725 4788 2071 Weight 48.9 kg 50.5 kg General appearance: PRESENT: no acute distress, disheveled, thin. ABSENT: cooperative Head exam: PRESENT: atraumatic, normocephalic Eye exam: PRESENT: conjunctiva pale. ABSENT: nystagmus, scleral icterus Mouth exam: PRESENT: dry mucosa, neck supple, tongue midline, other - ET tube Neck exam: ABSENT: carotid bruit, JVD, lymphadenopathy, thyromegaly, tracheal deviation, tracheostomy Respiratory exam: PRESENT: decreased breath sounds, prolonged expiratory phas, rales, rhonchi, unlabored. ABSENT: tachypnea Cardiovascular exam: PRESENT: RRR, +S1, +S2, tachycardia Pulses: PRESENT: normal radial pulses GI/Abdominal exam: PRESENT: other - Status post surgery dry and intact Gentrourinary exam: PRESENT: indwelling catheter Extremities exam: ABSENT: calf tenderness, clubbing, joint swelling, pedal edema Musculoskeletal exam: ABSENT: ambulatory, deformity, dislocation - [id number] Neurological exam: ABSENT: awake - [id number] Skin exam: PRESENT: dry, warm Results Laboratory Results: 09/27/18 06:25 09/27/18 06:25 09/26/18 09/26/18 09/27/18 23:44 23:44 06:25 WBC 2.2 L D 3.1 L RBC 3.28 L 3.17 L Hgb 8.2 L D 8.0 L Hct 25.5 L 24.9 L MCV 78 L 79 L MCH 25.1 L 25.3 L MCHC 32.3 32.3 RDW 14.0 14.2 H Plt Count 473 H 344 Seg Neutrophils % Not Reportable Lymphocytes % Not Reportable Monocytes % Not Reportable Eosinophils % Not Reportable Basophils % Not Reportable Absolute Neutrophils Not Reportable Absolute Lymphocytes Not Reportable Absolute Monocytes Not Reportable Absolute Eosinophils Not Reportable Absolute Basophils Not Reportable Sodium Potassium Chloride Carbon Dioxide Anion Gap BUN Creatinine Est GFR ( Amer) Est GFR (Non-Af Amer) Glucose Calcium Total Bilirubin AST ALT Alkaline Phosphatase Total Protein Albumin Blood Type A POSITIVE Antibody Screen NEGATIVE 09/27/18 06:25 WBC RBC Hgb Hct MCV MCH MCHC RDW Plt Count Seg Neutrophils % Lymphocytes % Monocytes % Eosinophils % Basophils % Absolute Neutrophils Absolute Lymphocytes Absolute Monocytes Absolute Eosinophils Absolute Basophils Sodium 135.4 L Potassium 4.5 Chloride 104 Carbon Dioxide 25 Anion Gap 6 BUN 14 Creatinine 0.79 Est GFR ( Amer) > 60 Est GFR (Non-Af Amer) > 60 Glucose 188 H Calcium 6.8 L* Total Bilirubin 0.4 AST 22 ALT 19 Alkaline Phosphatase 35 L Total Protein 3.7 L Albumin 1.9 L Blood Type Antibody Screen Impressions: Abdomen/Pelvis CT 09/25/18 00:00 IMPRESSION: Ileus or partial small bowel obstruction status post multiple bowel surgeries. No high-grade obstruction. Abdomen X-Ray 09/25/18 06:29 IMPRESSION: Difficult to exclude developing small bowel obstruction. Recommend CT. KUB X-Ray 09/25/18 12:03 IMPRESSION: NG tube appears to be in satisfactory position. Acute Abdomen Series 09/26/18 07:00 IMPRESSION: Improvement in the dilated loops of small bowel with few residual gas fluid levels within the pelvis. No evidence of perforation. Chest X-Ray 09/27/18 00:00 IMPRESSION: No pneumothorax following left IJ central line placement Assessment & Plan - Diagnosis (1) Respiratory failure Is this a current diagnosis for this admission?: Yes Plan: Trials of pressure support CPAP wean as tolerated - Time Total Critical Time (Minutes): 55
[2018-09-27 18:38] LABS: HEMOGLOBIN 11.6 g/dL (12.0-15.5); MEAN CORPUSCULAR HEMOGLOBIN 27.6 pg (27.0-33.4); MEAN CORPUSCULAR HGB CONC 34.1 g/dL (32.0-36.0); MEAN CORPUSCULAR VOLUME 81 fl (80-97); PLATELET COUNT 207 10^3/uL (150-450); RED BLOOD COUNT 4.21 10^6/uL (3.72-5.28); RED CELL DISTRIBUTION WIDTH 14.9 % (11.5-14.0); WHITE BLOOD COUNT 7.3 10^3/uL (4.0-10.5)
[2018-09-27] MEDS: PROPOFOL 1,000 MG/100 ML INFUS..BTL IV PRN (19:26)
[2018-09-27] MEDS ORDERED: ALTEPLASE INJ 2 MG VIAL (CATH CLEARANCE) IV ONE (21:30)
[2018-09-28] MEDS: MORPHINE SULFATE 10 MG/ML INJ IV PRN ×5 (00:08→23:26)
[2018-09-28] MEDS: LEVALBUTEROL HCL NEB 1.25 MG/3 ML AMPUL NEB SCH ×4 (01:08→23:55)
[2018-09-28] MEDS: POTASSI CL 30 MEQ/D5-1/2NS 1L 30 MEQ/1,000 ML RTUINJ IV PRN (01:11)
[2018-09-28] MEDS: PROPOFOL 1,000 MG/100 ML INFUS..BTL IV PRN ×5 (04:05→22:51)
[2018-09-28 04:29] LABS: HEMATOCRIT 29.5 % (36.0-47.0); MEAN CORPUSCULAR HEMOGLOBIN 27.7 pg (27.0-33.4); MEAN CORPUSCULAR HGB CONC 34.1 g/dL (32.0-36.0); MEAN CORPUSCULAR VOLUME 81 fl (80-97); PLATELET COUNT 179 10^3/uL (150-450); RED BLOOD COUNT 3.62 10^6/uL (3.72-5.28); RED CELL DISTRIBUTION WIDTH 15.1 % (11.5-14.0); WHITE BLOOD COUNT 7.2 10^3/uL (4.0-10.5)
[2018-09-28 04:43] LABS: BLOOD UREA NITROGEN 16 mg/dL (7-20); GLUCOSE 171 mg/dL (75-110)
[2018-09-28 04:51] LABS: CALCIUM 5.7 mg/dL (8.4-10.2)
[2018-09-28 05:00] LABS: ANION GAP 6 (5-19); CARBON DIOXIDE 17 mmol/L (22-30); CHLORIDE 108 mmol/L (98-107); SODIUM 130.9 mmol/L (137-145)
[2018-09-28 05:04] LABS: ABSOLUTE LYMPHOCYTES# (MANUAL) 1.4 10^3/uL (0.5-4.7); ABSOLUTE MONOCYTES # (MANUAL) 0.1 10^3/uL (0.1-1.4); ABSOLUTE NEUTROPHILS# (MANUAL) 5.7 10^3/uL (1.7-8.2); BAND NEUTROPHILS % (MANUAL) 9 % (3-5); BASOPHILS % (MANUAL) 0 % (0-2); EOSINOPHILS % (MANUAL) 0 % (0-6); LYMPHOCYTES % (MANUAL) 19 % (13-45); METAMYELOCYTES % (MANUAL) 1 % (0); MONOCYTES % (MANUAL) 2 % (3-13); SEGMENTED NEUTROPHILS % (MAN) 69 % (42-78); TOTAL CELLS COUNTED 100
[2018-09-28 05:05] LABS: ANISOCYTOSIS SLIGHT; BURR CELLS 1+; PLATELET COMMENT ADEQUATE; PLATELET GIANT PRESENT; PLATELET LARGE PRESENT; POIKILOCYTOSIS 2+; POLYCHROMASIA SLIGHT; SCHISTOCYTES 1+; TEAR DROP CELLS 1+; TOXIC GRANULATION 1+; TOXIC VACUOLATION PRESENT
[2018-09-28] MEDS: NORMAL SALINE 1000 ML 1,000 ML IV PRN ×3 (05:39→23:17)
[2018-09-28] MEDS ORDERED: CALCIUM GLUCONATE 1000 MG/10 ML INJ IV ONE (05:45)
--- NOTE | 2018-09-28 07:54 | PDOC PROGRESS REPORT ---
Subjective Progress Note for:: 09/28/18 - pod 2 Reason For Visit: SMALL BOWEL OBSTRUCTION s/p exploratory lap and small bowel resection with lysis of adhesions Physical Exam Vital Signs: Temp Pulse Resp BP Pulse Ox 97.7 F 88 13 114/51 L 100 09/28/18 06:00 09/28/18 01:10 09/28/18 06:00 09/28/18 05:04 09/28/18 06:00 Intake & Output 09/27/18 09/28/18 09/29/18 06:59 06:59 06:59 Intake Total 6448 5264 Output Total 1660 1070 Balance 4788 4194 Weight 50.5 kg 54.2 kg General appearance: PRESENT: no acute distress - sedated on propfol drip GI/Abdominal exam: PRESENT: soft - abd soft, wound clean, crystal serous min amts.\ no bowel sounds Results Laboratory Results: 09/28/18 04:15 09/28/18 04:15 09/26/18 09/27/18 09/28/18 23:44 18:28 04:15 WBC 7.3 D 7.2 RBC 4.21 3.62 L Hgb 11.6 L D 10.0 L Hct 34.0 L 29.5 L MCV 81 81 MCH 27.6 27.7 MCHC 34.1 34.1 RDW 14.9 H 15.1 H Plt Count 207 179 Seg Neutrophils % Not Reportable Lymphocytes % Not Reportable Monocytes % Not Reportable Eosinophils % Not Reportable Basophils % Not Reportable Absolute Neutrophils Not Reportable Absolute Lymphocytes Not Reportable Absolute Monocytes Not Reportable Absolute Eosinophils Not Reportable Absolute Basophils Not Reportable Sodium Potassium Chloride Carbon Dioxide Anion Gap BUN Creatinine Est GFR ( Amer) Est GFR (Non-Af Amer) Glucose Calcium Albumin Blood Type A POSITIVE Antibody Screen NEGATIVE 09/28/18 09/28/18 04:15 04:15 WBC RBC Hgb Hct MCV MCH MCHC RDW Plt Count Seg Neutrophils % Lymphocytes % Monocytes % Eosinophils % Basophils % Absolute Neutrophils Absolute Lymphocytes Absolute Monocytes Absolute Eosinophils Absolute Basophils Sodium 130.9 L Potassium 5.0 Chloride 108 H Carbon Dioxide 17 L Anion Gap 6 BUN 16 Creatinine 0.54 Est GFR ( Amer) > 60 Est GFR (Non-Af Amer) > 60 Glucose 171 H Calcium 5.7 L* Albumin 1.6 L Blood Type Antibody Screen Impressions: Abdomen/Pelvis CT 09/25/18 00:00 IMPRESSION: Ileus or partial small bowel obstruction status post multiple bowel surgeries. No high-grade obstruction. Abdomen X-Ray 09/25/18 06:29 IMPRESSION: Difficult to exclude developing small bowel obstruction. Recommend CT. KUB X-Ray 09/25/18 12:03 IMPRESSION: NG tube appears to be in satisfactory position. Acute Abdomen Series 09/26/18 07:00 IMPRESSION: Improvement in the dilated loops of small bowel with few residual gas fluid levels within the pelvis. No evidence of perforation. Chest X-Ray 09/27/18 00:00 IMPRESSION: No pneumothorax following left IJ central line placement Assessment & Plan - Diagnosis (1) Partial small bowel obstruction Is this a current diagnosis for this admission?: Yes - Plan Summary Plan Summary: remains intubated this am k-=5.0 co2-17 h/h stable impression still sl acidotic sl hyperkalemic plan- will discuss tpn pharmacy remove k from ivf calcium replaced vent management per pulm
--- NOTE | 2018-09-28 09:02 | OPERATIVE REPORT E ---
Operative Report NAME: SANDY WILL : 1945 AGE: 73Y DATE OF SURGERY: 09/27/2018 ROOM: [facility] PREOPERATIVE DIAGNOSIS: Small bowel obstruction. POSTOPERATIVE DIAGNOSIS: Small bowel obstruction. OPERATIVE PROCEDURE: Exploratory laparotomy with lysis of adhesions, small bowel resection. SURGEON: DONNA MCDANIELS M.D. BAILIFF SURGEON: Jaylen Medina M.D. INDICATIONS FOR PROCEDURE: This is a 73-year-old female with multiple previous abdominal surgeries for reported colon resections, presented with small bowel obstruction that was managed nonoperatively for approximately 48 hours with NG suction with no resolution. CT scan confirmed small bowel obstruction. She was therefore brought to the operating room for this procedure. PROCEDURE: The patient was brought to the operating room in awake, alert, and stable condition, placed on the operating table in supine position, induced under general anesthesia and intubated. The abdomen was prepped and draped in the usual sterile manner for the procedure. A midline incision was used from just below the xiphoid to just above the pubic symphysis. Dissection was carried down through subcutaneous tissue with Bovie cautery and the midline fascia was entered. Upon entering the midline fascia, there were numerous small bowel adhesions to the anterior abdominal wall with a minimal amount of omentum. The abdomen was quite hostile on initial inspection with the small bowel not mobile at all. There was a significant amount of time utilized to dissect the small bowel adhesions away from the abdominal wall just so we could get access to the abdominal cavity. Once this was done, it was noted that she had dense adhesions in the pelvis and all 4 quadrants that required sharp dissection. Multiple enterotomies were made secondary to the dense adhesions. The small bowel was quite fused together to itself and surrounding structures. We were eventually able to identify the right and left ureters and protect those. After an extensive dissection, we completely freed up the small bowel and identified the ligament of Treitz and identified the ileocecal valve. She did, in fact, have most of her colon intact, including the ileocecal valve, cecum, and this was examined all the way to the descending colon. Prior to that, her sigmoid colon had been previously resected. Three separate small bowel resections were required secondary to multiple enterotomies in different segments of the small bowel. Once this was completed, we then reanastomosed all 3 sections, leaving her with approximately 100-150 cm of small bowel. We preserved the ileocecal valve, and once this was completed, the small bowel was then returned to the abdominal cavity and was copiously irrigated with normal saline and suctioned dry. We placed a Jericho-Mauricio drain in the pelvis and brought it out through a stab wound in the left abdominal wall. We then closed the midline fascia with a running double looped 0 PDS suture and the skin was closed loosely with a few tashi interspersed with Harshal pledgets. A sterile dressing was applied at the termination of the procedure and she was returned to the intensive care unit, intubated in stable condition. Dr. Medina placed a central line, which he will dictate in a separate op note. Estimated blood loss for the procedure was approximately 300 mL. Sponge and needle counts were correct x2. DICTATING PHYSICIAN: DONNA MCDANIELS M.D. [id number] PHY#: [id number] ID: [id number] JOB#: [id number] ACCT: [id number] cc:DONNA MCDANIELS M.D. >
[2018-09-28] MEDS ORDERED: DEXTROSE 40% GEL 15 GM TUBE PO PRN (09:30)
[2018-09-28] MEDS ORDERED: DEXTROSE 50%-WATER SYRINGE 25 GM/50 ML DOSE IV PRN (09:30)
[2018-09-28] MEDS ORDERED: DEXTROSE 50%-WATER SYRINGE 12.5 GM/25 ML DOSE IV PRN (09:30)
[2018-09-28] MEDS ORDERED: DEXTROSE 10%-WATER 1,000 ML IV PRN (09:30)
[2018-09-28] MEDS ORDERED: GLUCAGON,HUMAN RECOMB 1 MG INJ IM PRN (09:30)
[2018-09-28] MEDS ORDERED: DEXTROSE 40% GEL 15 GM TUBE X 2 PO PRN (09:30)
[2018-09-28 13:11] LABS: HEMATOCRIT 31.2 % (36.0-47.0); HEMOGLOBIN 10.4 g/dL (12.0-15.5); MEAN CORPUSCULAR HGB CONC 33.5 g/dL (32.0-36.0); MEAN CORPUSCULAR VOLUME 81 fl (80-97); PLATELET COUNT 187 10^3/uL (150-450); RED BLOOD COUNT 3.87 10^6/uL (3.72-5.28); RED CELL DISTRIBUTION WIDTH 15.1 % (11.5-14.0)
[2018-09-28 13:25] LABS: ANION GAP 5 (5-19); BLOOD UREA NITROGEN 14 mg/dL (7-20); GLUCOSE 105 mg/dL (75-110); POTASSIUM 4.9 mmol/L (3.6-5.0)
[2018-09-28 13:30] LABS: ABSOLUTE LYMPHOCYTES# (MANUAL) 1.3 10^3/uL (0.5-4.7); ABSOLUTE MONOCYTES # (MANUAL) 0.5 10^3/uL (0.1-1.4); ABSOLUTE NEUTROPHILS# (MANUAL) 5.3 10^3/uL (1.7-8.2); BAND NEUTROPHILS % (MANUAL) 7 % (3-5); BASOPHILS % (MANUAL) 0 % (0-2); CARBON DIOXIDE 18 mmol/L (22-30); CHLORIDE 110 mmol/L (98-107); EOSINOPHILS % (MANUAL) 0 % (0-6); LYMPHOCYTES % (MANUAL) 18 % (13-45); MONOCYTES % (MANUAL) 7 % (3-13); SEGMENTED NEUTROPHILS % (MAN) 68 % (42-78); SODIUM 132.6 mmol/L (137-145); TOTAL CELLS COUNTED 100
[2018-09-28 13:32] LABS: ANISOCYTOSIS SLIGHT; BURR CELLS 1+; HYPOCHROMASIA SLIGHT; PLATELET COMMENT ADEQUATE; POIKILOCYTOSIS 1+; POLYCHROMASIA SLIGHT
[2018-09-28 13:34] LABS: CALCIUM 6.5 mg/dL (8.4-10.2)
[2018-09-28 14:18] LABS: ARTERIAL BLOOD BASE EXCESS -4.8 mmol/L; ARTERIAL BLOOD H2CO3 0.88 mmol/L (1.05-1.35); ARTERIAL BLOOD HCO3 18.5 mmol/L (20-24); ARTERIAL BLOOD PCO2 29.1 mmHg (35-45); ARTERIAL BLOOD PH 7.42 (7.35-7.45); ARTERIAL BLOOD TOTAL CO2 19.3 mmol/L (21-25)
[2018-09-28 14:19] LABS: ARTERIAL BLOOD FIO2 40%
[2018-09-28] MEDS: AMINO ACIDS 5%/D25W 1,000 ML IV PRN (18:46)
[2018-09-29] MEDS: MORPHINE SULFATE 10 MG/ML INJ IV PRN ×3 (05:04→16:20)
[2018-09-29] MEDS: PROPOFOL 1,000 MG/100 ML INFUS..BTL IV PRN ×3 (05:11→21:56)
[2018-09-29] MEDS: INSULIN REG, HUMAN 100 UNIT/ML 3 ML VIAL (PYX) SUBCUT PRN ×3 (05:52→18:02)
[2018-09-29] MEDS: MAGNESIUM SULFATE 1 GM/D5W 100 ML IV SCH ×2 (05:53→07:45)
[2018-09-29 06:00] LABS: ARTERIAL BLOOD BASE EXCESS -3.5 mmol/L; ARTERIAL BLOOD H2CO3 1.01 mmol/L (1.05-1.35); ARTERIAL BLOOD HCO3 20.6 mmol/L (20-24); ARTERIAL BLOOD PCO2 33.4 mmHg (35-45); ARTERIAL BLOOD PH 7.41 (7.35-7.45); ARTERIAL BLOOD PO2 154.4 mmHg (80-100); ARTERIAL BLOOD TOTAL CO2 21.7 mmol/L (21-25)
[2018-09-29 06:04] LABS: ARTERIAL BLOOD FIO2 40%
--- NOTE | 2018-09-29 06:49 | RADIOLOGY REPORT (SQ) ---
EXAM DESCRIPTION: XR CHEST 1 VIEW COMPLETED DATE/TME: 09/29/2018 06:00 CLINICAL HISTORY: Respiratory Distress. 73 years Female, resp failure COMPARISON: One day prior. NUMBER OF VIEWS/TECHNIQUE: 1/AP FINDINGS: Small streaky opacity at the left lung base. Adequate appearing endotracheal tube. Likely adequate appearing enteric tube partially obscured. Normal cardiac silhouette size. No pneumothorax. Stable bony thorax. IMPRESSION: No significant change.
[2018-09-29 07:06] LABS: HEMATOCRIT 25.1 % (36.0-47.0); HEMOGLOBIN 8.5 g/dL (12.0-15.5); MEAN CORPUSCULAR HEMOGLOBIN 27.4 pg (27.0-33.4); MEAN CORPUSCULAR HGB CONC 33.8 g/dL (32.0-36.0); MEAN CORPUSCULAR VOLUME 81 fl (80-97); PLATELET COUNT 150 10^3/uL (150-450); RED CELL DISTRIBUTION WIDTH 15.6 % (11.5-14.0); WHITE BLOOD COUNT 6.8 10^3/uL (4.0-10.5)
[2018-09-29 07:30] LABS: ALANINE AMINOTRANSFERASE 41 U/L (9-52); ALBUMIN 1.6 g/dL (3.5-5.0); ALKALINE PHOSPHATASE 28 U/L (38-126); ASPARTATE AMINO TRANSFERASE 100 U/L (14-36); BILIRUBIN,DIRECT 1.2 mg/dL (0.0-0.4); BILIRUBIN,TOTAL 1.5 mg/dL (0.2-1.3); BLOOD UREA NITROGEN 11 mg/dL (7-20); GLUCOSE 185 mg/dL (75-110); PHOSPHORUS 1.6 mg/dL (2.5-4.5); TOTAL PROTEIN 3.3 g/dL (6.3-8.2)
[2018-09-29 07:35] LABS: CARBON DIOXIDE 20 mmol/L (22-30); CHLORIDE 112 mmol/L (98-107); SODIUM 134.8 mmol/L (137-145)
[2018-09-29 07:37] LABS: PREALBUMIN 4.4 mg/dL (17.6-36.0)
[2018-09-29 07:41] LABS: POTASSIUM 3.8 mmol/L (3.6-5.0)
[2018-09-29 07:44] LABS: ANION GAP 3 (5-19); CALCIUM 6.3 mg/dL (8.4-10.2)
[2018-09-29 08:03] LABS: ABSOLUTE LYMPHOCYTES# (MANUAL) 0.7 10^3/uL (0.5-4.7); ABSOLUTE MONOCYTES # (MANUAL) 0.3 10^3/uL (0.1-1.4); ABSOLUTE NEUTROPHILS# (MANUAL) 5.7 10^3/uL (1.7-8.2); BAND NEUTROPHILS % (MANUAL) 10 % (3-5); BASOPHILS % (MANUAL) 0 % (0-2); EOSINOPHILS % (MANUAL) 1 % (0-6); LYMPHOCYTES % (MANUAL) 11 % (13-45); MONOCYTES % (MANUAL) 4 % (3-13); SEGMENTED NEUTROPHILS % (MAN) 74 % (42-78); TOTAL CELLS COUNTED 100
[2018-09-29 08:04] LABS: ANISOCYTOSIS SLIGHT; BURR CELLS 1+; HYPOCHROMASIA SLIGHT; OVALOCYTES SLIGHT; PLATELET COMMENT ADEQUATE; POIKILOCYTOSIS SLIGHT
--- NOTE | 2018-09-29 08:51 | PDOC PROGRESS REPORT ---
Subjective Progress Note for:: 09/29/18 Reason For Visit: SMALL BOWEL OBSTRUCTION pod 4 from extensive small bowel resection for sbo, lysis of adhesions Physical Exam Vital Signs: Temp Pulse Resp BP Pulse Ox 98.5 F 94 14 141/57 H 100 09/29/18 08:00 09/29/18 08:00 09/29/18 08:04 09/29/18 08:04 09/29/18 08:04 Intake & Output 09/28/18 09/29/18 09/30/18 06:59 06:59 06:59 Intake Total 5264 2374 2 Output Total 1070 1950 500 Balance 4194 424 -498 Weight 54.2 kg 56.9 kg General appearance: PRESENT: no acute distress Respiratory exam: PRESENT: unlabored GI/Abdominal exam: PRESENT: other - abd, wound clean with bean in place passing stool +bs ng in place Extremities exam: PRESENT: other - warm with + distal pulses Results Laboratory Results: 09/29/18 06:53 09/29/18 06:53 09/28/18 09/28/18 09/28/18 12:46 12:46 14:00 WBC 7.0 RBC 3.87 Hgb 10.4 L Hct 31.2 L MCV 81 MCH 27.0 MCHC 33.5 RDW 15.1 H Plt Count 187 Seg Neutrophils % Not Reportable Lymphocytes % Not Reportable Monocytes % Not Reportable Eosinophils % Not Reportable Basophils % Not Reportable Absolute Neutrophils Not Reportable Absolute Lymphocytes Not Reportable Absolute Monocytes Not Reportable Absolute Eosinophils Not Reportable Absolute Basophils Not Reportable Carbonic Acid 0.88 L HCO3/H2CO3 Ratio 21:1 ABG pH 7.42 ABG pCO2 29.1 L ABG pO2 105.0 H ABG HCO3 18.5 L ABG O2 Saturation 98.0 ABG Base Excess -4.8 FiO2 40% Sodium 132.6 L Potassium 4.9 Chloride 110 H Carbon Dioxide 18 L Anion Gap 5 BUN 14 Creatinine 0.57 Est GFR ( Amer) > 60 Est GFR (Non-Af Amer) > 60 Glucose 105 Calcium 6.5 L* Phosphorus Magnesium 1.4 L Total Bilirubin AST ALT Alkaline Phosphatase Total Protein Albumin Prealbumin 09/29/18 09/29/18 09/29/18 05:40 06:53 06:53 WBC 6.8 RBC 3.10 L Hgb 8.5 L Hct 25.1 L MCV 81 MCH 27.4 MCHC 33.8 RDW 15.6 H Plt Count 150 Seg Neutrophils % Not Reportable Lymphocytes % Not Reportable Monocytes % Not Reportable Eosinophils % Not Reportable Basophils % Not Reportable Absolute Neutrophils Not Reportable Absolute Lymphocytes Not Reportable Absolute Monocytes Not Reportable Absolute Eosinophils Not Reportable Absolute Basophils Not Reportable Carbonic Acid 1.01 L HCO3/H2CO3 Ratio 20:1 ABG pH 7.41 ABG pCO2 33.4 L ABG pO2 154.4 H ABG HCO3 20.6 ABG O2 Saturation 99.0 H ABG Base Excess -3.5 FiO2 40% Sodium 134.8 L Potassium 3.8 D Chloride 112 H Carbon Dioxide 20 L Anion Gap 3 L BUN 11 Creatinine 0.49 L Est GFR ( Amer) > 60 Est GFR (Non-Af Amer) > 60 Glucose 185 H Calcium 6.3 L* Phosphorus 1.6 L Magnesium 2.3 Total Bilirubin 1.5 H AST 100 H ALT 41 Alkaline Phosphatase 28 L Total Protein 3.3 L Albumin 1.6 L Prealbumin 4.4 L 09/26/18 10:40 Clean Catch Midstream Urine Culture - Final NO GROWTH 2 DAYS Impressions: Abdomen/Pelvis CT 09/25/18 00:00 IMPRESSION: Ileus or partial small bowel obstruction status post multiple bowel surgeries. No high-grade obstruction. Abdomen X-Ray 09/25/18 06:29 IMPRESSION: Difficult to exclude developing small bowel obstruction. Recommend CT. KUB X-Ray 09/25/18 12:03 IMPRESSION: NG tube appears to be in satisfactory position. Acute Abdomen Series 09/26/18 07:00 IMPRESSION: Improvement in the dilated loops of small bowel with few residual gas fluid levels within the pelvis. No evidence of perforation. Chest X-Ray 09/29/18 06:00 IMPRESSION: No significant change. Assessment & Plan - Diagnosis (1) Partial small bowel obstruction Is this a current diagnosis for this admission?: Yes - Plan Summary Plan Summary: s/p ex lap and small bowel resection for sever sbo now on vent pod 4 hypoalbumin on tpn some return of bowel function with passage of stool plan cont iv abx vent management per pulmonary cont iv abx replace electrolytes tpn
[2018-09-29] MEDS: LEVALBUTEROL HCL NEB 1.25 MG/3 ML AMPUL NEB SCH ×2 (09:27→16:00)
[2018-09-29] MEDS ORDERED: DEXAMETHASONE SOD PHOSPHATE INJ 4 MG/1 ML VIAL IV ONE ×2 (11:55→13:00)
[2018-09-29] MEDS: NORMAL SALINE 1000 ML 1,000 ML IV PRN (16:50)
[2018-09-29] MEDS: AMINO ACIDS 5%/D25W 1,000 ML IV PRN (16:50)
[2018-09-29] MEDS ORDERED: POTASSIUM PHOS,M-BASIC-D-BASIC 20 MMOL in NORMAL SALINE 500 ML IV ONE (21:30)
[2018-09-29] MEDS ORDERED: PHOSPHORUS #1 250 MG TABLET NG ONE (22:15)
[2018-09-30] MEDS: INSULIN REG, HUMAN 100 UNIT/ML 3 ML VIAL (PYX) SUBCUT PRN ×2 (00:01→05:20)
[2018-09-30] MEDS: NORMAL SALINE 1000 ML 1,000 ML IV PRN ×3 (00:01→17:18)
[2018-09-30] MEDS: LEVALBUTEROL HCL NEB 1.25 MG/3 ML AMPUL NEB SCH ×3 (00:33→15:41)
[2018-09-30] MEDS: MORPHINE SULFATE 10 MG/ML INJ IV PRN ×2 (01:03→10:45)
[2018-09-30 04:13] LABS: ARTERIAL BLOOD BASE EXCESS -4.1 mmol/L; ARTERIAL BLOOD H2CO3 1.04 mmol/L (1.05-1.35); ARTERIAL BLOOD HCO3 20.4 mmol/L (20-24); ARTERIAL BLOOD O2 SATURATION 97.3 % (94-98); ARTERIAL BLOOD PCO2 34.7 mmHg (35-45); ARTERIAL BLOOD PH 7.39 (7.35-7.45); ARTERIAL BLOOD PO2 96.3 mmHg (80-100); ARTERIAL BLOOD TOTAL CO2 21.5 mmol/L (21-25)
[2018-09-30 04:19] LABS: ARTERIAL BLOOD FIO2 21%
[2018-09-30 04:26] LABS: ALANINE AMINOTRANSFERASE 45 U/L (9-52); ALBUMIN 1.6 g/dL (3.5-5.0); ALKALINE PHOSPHATASE 30 U/L (38-126); ANION GAP 5 (5-19); ASPARTATE AMINO TRANSFERASE 96 U/L (14-36); BILIRUBIN,DIRECT 0.6 mg/dL (0.0-0.4); BILIRUBIN,TOTAL 0.8 mg/dL (0.2-1.3); BLOOD UREA NITROGEN 10 mg/dL (7-20); CARBON DIOXIDE 19 mmol/L (22-30); CHLORIDE 113 mmol/L (98-107); GLUCOSE 387 mg/dL (75-110); POTASSIUM 4.2 mmol/L (3.6-5.0); SODIUM 136.8 mmol/L (137-145); TOTAL PROTEIN 3.4 g/dL (6.3-8.2)
[2018-09-30 04:31] LABS: INTERNATIONAL RATION (INR) 0.98; PROTHROMBIN TIME 13.5 SEC (11.4-15.4)
[2018-09-30 04:33] LABS: PREALBUMIN 4.3 mg/dL (17.6-36.0)
[2018-09-30 04:38] LABS: HEMATOCRIT 21.7 % (36.0-47.0); HEMOGLOBIN 7.4 g/dL (12.0-15.5); MEAN CORPUSCULAR HEMOGLOBIN 27.5 pg (27.0-33.4); MEAN CORPUSCULAR HGB CONC 33.9 g/dL (32.0-36.0); MEAN CORPUSCULAR VOLUME 81 fl (80-97); PLATELET COUNT 162 10^3/uL (150-450); RED BLOOD COUNT 2.67 10^6/uL (3.72-5.28); RED CELL DISTRIBUTION WIDTH 15.7 % (11.5-14.0); WHITE BLOOD COUNT 8.5 10^3/uL (4.0-10.5)
[2018-09-30] MEDS: PROPOFOL 1,000 MG/100 ML INFUS..BTL IV PRN ×2 (05:19→18:11)
--- NOTE | 2018-09-30 06:26 | RADIOLOGY REPORT (SQ) ---
EXAM DESCRIPTION: XR CHEST 1 VIEW COMPLETED DATE/TME: 09/30/2018 06:00 CLINICAL HISTORY: Respiratory Distress. 73 years Female, resp failure/sepsis COMPARISON: One day prior. NUMBER OF VIEWS/TECHNIQUE: 1/AP FINDINGS: Small streaky left lower lobar retrocardiac opacity. Adequate lung volume.Adequate appearing endotracheal tube. Likely adequate appearing enteric tube partially obscured. Adequate appearing left jugular central line. Normal cardiac silhouette size. No pneumothorax. Stable bony thorax. IMPRESSION: No significant change.
--- NOTE | 2018-09-30 06:49 | PDOC PROGRESS REPORT ---
Subjective Progress Note for:: 09/30/18 Reason For Visit: SMALL BOWEL OBSTRUCTION pod 4 s/p exlap and lysis of ahesions with small bowel resection Physical Exam Vital Signs: Temp Pulse Resp BP Pulse Ox 97.7 F 96 13 114/52 L 99 09/30/18 00:00 09/30/18 00:30 09/30/18 06:05 09/30/18 06:05 09/30/18 06:05 Intake & Output 09/28/18 09/29/18 09/30/18 06:59 06:59 06:59 Intake Total 5264 2374 3783 Output Total 1070 1950 4220 Balance 4194 424 -437 Weight 54.2 kg 56.9 kg 57.2 kg General appearance: PRESENT: no acute distress, other - intubated, sedated GI/Abdominal exam: PRESENT: other - abd soft, few bs, passing stool crystal output serous Results Laboratory Results: 09/30/18 03:53 09/30/18 03:53 09/29/18 09/29/18 09/30/18 06:53 06:53 03:53 WBC 6.8 RBC 3.10 L Hgb 8.5 L Hct 25.1 L MCV 81 MCH 27.4 MCHC 33.8 RDW 15.6 H Plt Count 150 Seg Neutrophils % Not Reportable Lymphocytes % Not Reportable Monocytes % Not Reportable Eosinophils % Not Reportable Basophils % Not Reportable Absolute Neutrophils Not Reportable Absolute Lymphocytes Not Reportable Absolute Monocytes Not Reportable Absolute Eosinophils Not Reportable Absolute Basophils Not Reportable Carbonic Acid 1.04 L HCO3/H2CO3 Ratio 19:1 ABG pH 7.39 ABG pCO2 34.7 L ABG pO2 96.3 ABG HCO3 20.4 ABG O2 Saturation 97.3 ABG Base Excess -4.1 FiO2 21% Sodium 134.8 L Potassium 3.8 D Chloride 112 H Carbon Dioxide 20 L Anion Gap 3 L BUN 11 Creatinine 0.49 L Est GFR ( Amer) > 60 Est GFR (Non-Af Amer) > 60 Glucose 185 H Calcium 6.3 L* Phosphorus 1.6 L Magnesium 2.3 Total Bilirubin 1.5 H AST 100 H ALT 41 Alkaline Phosphatase 28 L Total Protein 3.3 L Albumin 1.6 L Prealbumin 4.4 L 09/30/18 09/30/18 03:53 03:53 WBC 8.5 RBC 2.67 L Hgb 7.4 L Hct 21.7 L MCV 81 MCH 27.5 MCHC 33.9 RDW 15.7 H Plt Count 162 Seg Neutrophils % Lymphocytes % Monocytes % Eosinophils % Basophils % Absolute Neutrophils Absolute Lymphocytes Absolute Monocytes Absolute Eosinophils Absolute Basophils Carbonic Acid HCO3/H2CO3 Ratio ABG pH ABG pCO2 ABG pO2 ABG HCO3 ABG O2 Saturation ABG Base Excess FiO2 Sodium 136.8 L Potassium 4.2 Chloride 113 H Carbon Dioxide 19 L Anion Gap 5 BUN 10 Creatinine 0.41 L Est GFR ( Amer) > 60 Est GFR (Non-Af Amer) > 60 Glucose 387 H Calcium 6.0 L* Phosphorus 2.0 L Magnesium 2.5 H Total Bilirubin 0.8 AST 96 H ALT 45 Alkaline Phosphatase 30 L Total Protein 3.4 L Albumin 1.6 L Prealbumin 4.3 L Impressions: Abdomen/Pelvis CT 09/25/18 00:00 IMPRESSION: Ileus or partial small bowel obstruction status post multiple bowel surgeries. No high-grade obstruction. Abdomen X-Ray 09/25/18 06:29 IMPRESSION: Difficult to exclude developing small bowel obstruction. Recommend CT. KUB X-Ray 09/25/18 12:03 IMPRESSION: NG tube appears to be in satisfactory position. Acute Abdomen Series 09/26/18 07:00 IMPRESSION: Improvement in the dilated loops of small bowel with few residual gas fluid levels within the pelvis. No evidence of perforation. Chest X-Ray 09/30/18 06:00 IMPRESSION: No significant change. Assessment & Plan - Diagnosis (1) Partial small bowel obstruction Is this a current diagnosis for this admission?: Yes - Plan Summary Plan Summary: pt noted to have hemoglobin 7.4 this am wbc wnl no evidence of post op bleed, suspect equilibration pt noted to be anemic preop will txn 1 uprbc cont tpn awaiting extubation per pulmonary.
[2018-09-30] MEDS ORDERED: FERRIC CARBOXYMALTOSE INJ 750 MG/15 ML VIAL IV SCH (07:30)
--- NOTE | 2018-09-30 08:32 | PDOC PROGRESS REPORT ---
Subjective Progress Note for:: 09/30/18 Subjective:: Patient remains sedated on vent. Nurses report that she was ready for extubation yesterday, but then got too tired. They will try again earlier today. She remains on TPN and has been having BMs. Nurses report no other issues. pRBC transfusion has been ordered today. ROS unable to obtain. Reason For Visit: SMALL BOWEL OBSTRUCTION Physical Exam Vital Signs: Temp Pulse Resp BP Pulse Ox 97.6 F 88 12 118/53 L 99 09/30/18 08:18 09/30/18 08:18 09/30/18 08:18 09/30/18 08:18 09/30/18 08:18 Intake & Output 09/29/18 09/30/18 10/01/18 06:59 06:59 06:59 Intake Total 2374 3783 0 Output Total 1950 4220 225 Balance 424 -437 -225 Weight 56.9 kg 57.2 kg General appearance: PRESENT: well-developed, well-nourished Head exam: PRESENT: normocephalic Respiratory exam: PRESENT: clear to auscultation mar Cardiovascular exam: PRESENT: RRR Extremities exam: ABSENT: pedal edema Neurological exam: PRESENT: other - Sedated on vent. Skin exam: PRESENT: normal color Results Laboratory Results: 09/30/18 03:53 09/30/18 03:53 09/30/18 09/30/18 09/30/18 03:53 03:53 03:53 WBC 8.5 RBC 2.67 L Hgb 7.4 L Hct 21.7 L MCV 81 MCH 27.5 MCHC 33.9 RDW 15.7 H Plt Count 162 Carbonic Acid 1.04 L HCO3/H2CO3 Ratio 19:1 ABG pH 7.39 ABG pCO2 34.7 L ABG pO2 96.3 ABG HCO3 20.4 ABG O2 Saturation 97.3 ABG Base Excess -4.1 FiO2 21% Sodium 136.8 L Potassium 4.2 Chloride 113 H Carbon Dioxide 19 L Anion Gap 5 BUN 10 Creatinine 0.41 L Est GFR ( Amer) > 60 Est GFR (Non-Af Amer) > 60 Glucose 387 H Calcium 6.0 L* Phosphorus 2.0 L Magnesium 2.5 H Total Bilirubin 0.8 AST 96 H ALT 45 Alkaline Phosphatase 30 L Total Protein 3.4 L Albumin 1.6 L Prealbumin 4.3 L Blood Type Antibody Screen 09/30/18 06:53 WBC RBC Hgb Hct MCV MCH MCHC RDW Plt Count Carbonic Acid HCO3/H2CO3 Ratio ABG pH ABG pCO2 ABG pO2 ABG HCO3 ABG O2 Saturation ABG Base Excess FiO2 Sodium Potassium Chloride Carbon Dioxide Anion Gap BUN Creatinine Est GFR ( Amer) Est GFR (Non-Af Amer) Glucose Calcium Phosphorus Magnesium Total Bilirubin AST ALT Alkaline Phosphatase Total Protein Albumin Prealbumin Blood Type A POSITIVE Antibody Screen NEGATIVE Impressions: Abdomen/Pelvis CT 09/25/18 00:00 IMPRESSION: Ileus or partial small bowel obstruction status post multiple bowel surgeries. No high-grade obstruction. Abdomen X-Ray 09/25/18 06:29 IMPRESSION: Difficult to exclude developing small bowel obstruction. Recommend CT. KUB X-Ray 09/25/18 12:03 IMPRESSION: NG tube appears to be in satisfactory position. Acute Abdomen Series 09/26/18 07:00 IMPRESSION: Improvement in the dilated loops of small bowel with few residual gas fluid levels within the pelvis. No evidence of perforation. Chest X-Ray 09/30/18 06:00 IMPRESSION: No significant change. Assessment & Plan - Diagnosis (1) Partial small bowel obstruction Is this a current diagnosis for this admission?: Yes Plan: Now relieved after surgery. (2) UTI (urinary tract infection) Qualifiers: Urinary tract infection type: site unspecified Hematuria presence: without hematuria Qualified Code(s): N39.0 - Urinary tract infection, site not specified Is this a current diagnosis for this admission?: Yes (3) Anemia Qualifiers: Anemia type: iron deficiency Is this a current diagnosis for this admission?: Yes Plan: Agree with blood transfusion. I will also order IV iron to help maintain HGB as well. No current evidence of active bleeding, but should continue to watch fro blood in stool.
[2018-09-30] MEDS ORDERED: FERRIC CARBOXYMALTOSE 750 MG in NORMAL SALINE 250 ML IV ONE (10:00)
[2018-09-30] MEDS: LORAZEPAM INJ 2 MG/1 ML VIAL IV PRN (11:46)
[2018-09-30 13:41] LABS: HEMATOCRIT 27.1 % (36.0-47.0); HEMOGLOBIN 9.4 g/dL (12.0-15.5); MEAN CORPUSCULAR HEMOGLOBIN 28.8 pg (27.0-33.4); MEAN CORPUSCULAR HGB CONC 34.7 g/dL (32.0-36.0); MEAN CORPUSCULAR VOLUME 83 fl (80-97); PLATELET COUNT 184 10^3/uL (150-450); RED BLOOD COUNT 3.27 10^6/uL (3.72-5.28); RED CELL DISTRIBUTION WIDTH 15.9 % (11.5-14.0); WHITE BLOOD COUNT 9.9 10^3/uL (4.0-10.5)
[2018-09-30 14:04] LABS: ABSOLUTE LYMPHOCYTES# (MANUAL) 0.7 10^3/uL (0.5-4.7); ABSOLUTE MONOCYTES # (MANUAL) 0.6 10^3/uL (0.1-1.4); ABSOLUTE NEUTROPHILS# (MANUAL) 8.6 10^3/uL (1.7-8.2); ANISOCYTOSIS SLIGHT; BAND NEUTROPHILS % (MANUAL) 5 % (3-5); BASOPHILS % (MANUAL) 0 % (0-2); EOSINOPHILS % (MANUAL) 0 % (0-6); HYPOCHROMASIA SLIGHT; LYMPHOCYTES % (MANUAL) 6 % (13-45); MONOCYTES % (MANUAL) 6 % (3-13); SEGMENTED NEUTROPHILS % (MAN) 82 % (42-78); TOTAL CELLS COUNTED 100
[2018-09-30 14:05] LABS: PLATELET COMMENT ADEQUATE
[2018-09-30] MEDS: AMINO ACIDS 5%/D25W 1,000 ML IV PRN (17:18)
[2018-10-01] MEDS: LEVALBUTEROL HCL NEB 1.25 MG/3 ML AMPUL NEB SCH ×3 (00:03→15:49)
[2018-10-01] MEDS: PROPOFOL 1,000 MG/100 ML INFUS..BTL IV PRN ×3 (00:37→23:37)
[2018-10-01] MEDS: MORPHINE SULFATE 10 MG/ML INJ IV PRN ×3 (01:10→13:03)
[2018-10-01] MEDS: NORMAL SALINE 1000 ML 1,000 ML IV PRN ×2 (01:11→09:12)
[2018-10-01 05:32] LABS: ARTERIAL BLOOD BASE EXCESS -1.9 mmol/L; ARTERIAL BLOOD H2CO3 0.96 mmol/L (1.05-1.35); ARTERIAL BLOOD HCO3 21.7 mmol/L (20-24); ARTERIAL BLOOD O2 SATURATION 95.2 % (94-98); ARTERIAL BLOOD PCO2 31.9 mmHg (35-45); ARTERIAL BLOOD PH 7.45 (7.35-7.45); ARTERIAL BLOOD PO2 71.1 mmHg (80-100); ARTERIAL BLOOD TOTAL CO2 22.7 mmol/L (21-25)
[2018-10-01 05:33] LABS: ARTERIAL BLOOD FIO2 21%
[2018-10-01 05:44] LABS: ALANINE AMINOTRANSFERASE 62 U/L (9-52); ALBUMIN 1.8 g/dL (3.5-5.0); ALKALINE PHOSPHATASE 74 U/L (38-126); ANION GAP 5 (5-19); ASPARTATE AMINO TRANSFERASE 103 U/L (14-36); BILIRUBIN,DIRECT 0.8 mg/dL (0.0-0.4); BILIRUBIN,TOTAL 1.2 mg/dL (0.2-1.3); BLOOD UREA NITROGEN 12 mg/dL (7-20); CARBON DIOXIDE 22 mmol/L (22-30); CHLORIDE 115 mmol/L (98-107); GLUCOSE 145 mg/dL (75-110); PHOSPHORUS 1.9 mg/dL (2.5-4.5); POTASSIUM 3.2 mmol/L (3.6-5.0); SODIUM 141.6 mmol/L (137-145); TOTAL PROTEIN 3.9 g/dL (6.3-8.2)
[2018-10-01 05:52] LABS: PREALBUMIN 5.6 mg/dL (17.6-36.0)
[2018-10-01 05:56] LABS: CALCIUM 6.7 mg/dL (8.4-10.2)
--- NOTE | 2018-10-01 08:40 | RADIOLOGY REPORT (SQ) ---
EXAM DESCRIPTION: CHEST SINGLE VIEW COMPLETED DATE/TIME: 10/01/2018 6:52 am REASON FOR STUDY: resp failure COMPARISON: 09/30/2018. EXAM PARAMETERS: NUMBER OF VIEWS: One view. TECHNIQUE: Single frontal radiographic view of the chest acquired. RADIATION DOSE: NA LIMITATIONS: None. FINDINGS: LUNGS AND PLEURA: Left lower lobe airspace disease unchanged. Patchy right basilar densit y. No large pleural effusion or pneumothorax. MEDIASTINUM AND HILAR STRUCTURES: No masses. Contour normal. HEART AND VASCULAR STRUCTURES: Heart normal in size. Normal vasculature. BONES: No acute findings. HARDWARE: Stable endotracheal tube and central line. OTHER: No other significant finding. IMPRESSION: NO SIGNIFICANT CHANGE IN APPEARANCE OF THE CHEST. TECHNICAL DOCUMENTATION: JOB ID: [id number] [employer]- All Rights Reserved Reading location - IP/workstation name: [email or web address]
--- NOTE | 2018-10-01 08:45 | PDOC PROGRESS REPORT ---
Subjective Progress Note for:: 10/01/18 Subjective:: Patient remains sedated on ventilator. Family is at bedside. nurses report that patient became tachypnic and tachycardic with weaning yesterday. ROS: Small BM last night. Continues TPN nutrition. Reason For Visit: SMALL BOWEL OBSTRUCTION Physical Exam Vital Signs: Temp Pulse Resp BP Pulse Ox 100.2 F 103 H 12 155/66 H 96 10/01/18 05:42 10/01/18 00:05 10/01/18 06:05 10/01/18 06:05 10/01/18 06:05 Intake & Output 09/30/18 10/01/18 10/02/18 06:59 06:59 06:59 Intake Total 3783 3756 Output Total 4223 6893 Balance -437 -1004 Weight 57.2 kg 57.4 kg General appearance: PRESENT: well-developed, well-nourished Head exam: PRESENT: normocephalic Respiratory exam: PRESENT: clear to auscultation mar Cardiovascular exam: PRESENT: RRR GI/Abdominal exam: PRESENT: hypoactive bowel sounds Skin exam: PRESENT: normal color Results Laboratory Results: 09/30/18 13:15 10/01/18 05:15 09/30/18 10/01/18 10/01/18 13:15 05:15 05:15 WBC 9.9 RBC 3.27 L Hgb 9.4 L Hct 27.1 L MCV 83 MCH 28.8 MCHC 34.7 RDW 15.9 H Plt Count 184 Seg Neutrophils % Not Reportable Lymphocytes % Not Reportable Monocytes % Not Reportable Eosinophils % Not Reportable Basophils % Not Reportable Absolute Neutrophils Not Reportable Absolute Lymphocytes Not Reportable Absolute Monocytes Not Reportable Absolute Eosinophils Not Reportable Absolute Basophils Not Reportable Carbonic Acid 0.96 L HCO3/H2CO3 Ratio 22:1 ABG pH 7.45 ABG pCO2 31.9 L ABG pO2 71.1 L ABG HCO3 21.7 ABG O2 Saturation 95.2 ABG Base Excess -1.9 FiO2 21% Sodium 141.6 Potassium 3.2 L Chloride 115 H Carbon Dioxide 22 Anion Gap 5 BUN 12 Creatinine 0.39 L Est GFR ( Amer) > 60 Est GFR (Non-Af Amer) > 60 Glucose 145 H Calcium 6.7 L* Phosphorus 1.9 L Total Bilirubin 1.2 AST 103 H ALT 62 H Alkaline Phosphatase 74 Total Protein 3.9 L Albumin 1.8 L Prealbumin 5.6 L Impressions: Abdomen/Pelvis CT 09/25/18 00:00 IMPRESSION: Ileus or partial small bowel obstruction status post multiple bowel surgeries. No high-grade obstruction. Abdomen X-Ray 09/25/18 06:29 IMPRESSION: Difficult to exclude developing small bowel obstruction. Recommend CT. KUB X-Ray 09/25/18 12:03 IMPRESSION: NG tube appears to be in satisfactory position. Acute Abdomen Series 09/26/18 07:00 IMPRESSION: Improvement in the dilated loops of small bowel with few residual gas fluid levels within the pelvis. No evidence of perforation. Chest X-Ray 10/01/18 06:00 IMPRESSION: NO SIGNIFICANT CHANGE IN APPEARANCE OF THE CHEST. Assessment & Plan - Diagnosis (1) Partial small bowel obstruction Is this a current diagnosis for this admission?: Yes (2) UTI (urinary tract infection) Qualifiers: Urinary tract infection type: site unspecified Hematuria presence: without hematuria Qualified Code(s): N39.0 - Urinary tract infection, site not specified Is this a current diagnosis for this admission?: Yes (3) Anemia Qualifiers: Anemia type: iron deficiency Is this a current diagnosis for this admission?: Yes Plan: Improved after blood transfusion. She was also given IV iron. - Plan Summary Plan Summary: Start electrolyte protocol for the Ca, potassium, mag, etc.
[2018-10-01] MEDS: POTASSIUM CHLORIDE 20 MEQ/50 ML RTU IV SCH ×2 (09:10→11:23)
--- NOTE | 2018-10-01 09:33 | PDOC PROGRESS REPORT ---
Subjective Progress Note for:: 10/01/18 Subjective:: pod #5 post exploratory laparotomy and lysis of adhesions and small bowel resection Reason For Visit: SMALL BOWEL OBSTRUCTION pt remains intubated on an propofol drip wheening ]agitated, does not follow commands Physical Exam Vital Signs: Temp Pulse Resp BP Pulse Ox 99.5 F 113 H 15 169/76 H 96 10/01/18 08:00 10/01/18 08:00 10/01/18 08:05 10/01/18 08:05 10/01/18 08:05 Intake & Output 09/30/18 10/01/18 10/02/18 06:59 06:59 06:59 Intake Total 3783 9726 Output Total 0184 7775 235 Balance -437 -1004 -235 Weight 57.2 kg 57.4 kg General appearance: PRESENT: mild distress Respiratory exam: PRESENT: tachypnea GI/Abdominal exam: PRESENT: soft - abd soft wound dry few bs passing stool crystal serous Results Laboratory Results: 09/30/18 13:15 10/01/18 05:15 09/30/18 10/01/18 10/01/18 13:15 05:15 05:15 WBC 9.9 RBC 3.27 L Hgb 9.4 L Hct 27.1 L MCV 83 MCH 28.8 MCHC 34.7 RDW 15.9 H Plt Count 184 Seg Neutrophils % Not Reportable Lymphocytes % Not Reportable Monocytes % Not Reportable Eosinophils % Not Reportable Basophils % Not Reportable Absolute Neutrophils Not Reportable Absolute Lymphocytes Not Reportable Absolute Monocytes Not Reportable Absolute Eosinophils Not Reportable Absolute Basophils Not Reportable Carbonic Acid 0.96 L HCO3/H2CO3 Ratio 22:1 ABG pH 7.45 ABG pCO2 31.9 L ABG pO2 71.1 L ABG HCO3 21.7 ABG O2 Saturation 95.2 ABG Base Excess -1.9 FiO2 21% Sodium 141.6 Potassium 3.2 L Chloride 115 H Carbon Dioxide 22 Anion Gap 5 BUN 12 Creatinine 0.39 L Est GFR ( Amer) > 60 Est GFR (Non-Af Amer) > 60 Glucose 145 H Calcium 6.7 L* Phosphorus 1.9 L Total Bilirubin 1.2 AST 103 H ALT 62 H Alkaline Phosphatase 74 Total Protein 3.9 L Albumin 1.8 L Prealbumin 5.6 L Impressions: Abdomen/Pelvis CT 09/25/18 00:00 IMPRESSION: Ileus or partial small bowel obstruction status post multiple bowel surgeries. No high-grade obstruction. Abdomen X-Ray 09/25/18 06:29 IMPRESSION: Difficult to exclude developing small bowel obstruction. Recommend CT. KUB X-Ray 09/25/18 12:03 IMPRESSION: NG tube appears to be in satisfactory position. Acute Abdomen Series 09/26/18 07:00 IMPRESSION: Improvement in the dilated loops of small bowel with few residual gas fluid levels within the pelvis. No evidence of perforation. Chest X-Ray 10/01/18 06:00 IMPRESSION: NO SIGNIFICANT CHANGE IN APPEARANCE OF THE CHEST. Assessment & Plan - Diagnosis (1) Partial small bowel obstruction Is this a current diagnosis for this admission?: Yes - Plan Summary Plan Summary: pt remains intubated jaci mascorro still does not follow commands wbc remains stable good respons from prbc txn yesterday
--- NOTE | 2018-10-01 15:32 | PDOC PROGRESS REPORT ---
Subjective Progress Note for:: 09/28/18 Subjective:: intubated and sedated Reason For Visit: SMALL BOWEL OBSTRUCTION Physical Exam Vital Signs: Temp Pulse Resp BP Pulse Ox 98.8 F 99 14 128/53 H 100 09/28/18 08:00 09/28/18 08:00 09/28/18 08:00 09/28/18 08:00 09/28/18 08:00 Intake & Output 09/27/18 09/28/18 09/29/18 06:59 06:59 06:59 Intake Total 6448 5264 Output Total 1660 1070 70 Balance 4788 4194 -70 Weight 50.5 kg 54.2 kg General appearance: PRESENT: no acute distress, disheveled, thin. ABSENT: cooperative Head exam: PRESENT: atraumatic, normocephalic Eye exam: PRESENT: conjunctiva pale. ABSENT: nystagmus, other Mouth exam: PRESENT: dry mucosa, neck supple, tongue midline, other - ET tube Neck exam: ABSENT: carotid bruit, JVD, lymphadenopathy, thyromegaly, tracheal deviation, tracheostomy Respiratory exam: PRESENT: decreased breath sounds, prolonged expiratory phas, rales, rhonchi, unlabored Cardiovascular exam: PRESENT: RRR, +S1, +S2, tachycardia Pulses: PRESENT: normal radial pulses GI/Abdominal exam: PRESENT: soft, other - Status post surgery Gentrourinary exam: PRESENT: indwelling catheter Extremities exam: PRESENT: pedal edema. ABSENT: calf tenderness, clubbing, joint swelling Musculoskeletal exam: ABSENT: ambulatory, deformity, dislocation Neurological exam: ABSENT: altered Skin exam: PRESENT: dry, warm Results Laboratory Results: 09/28/18 04:15 09/28/18 04:15 09/26/18 09/27/18 09/28/18 23:44 18:28 04:15 WBC 7.3 D 7.2 RBC 4.21 3.62 L Hgb 11.6 L D 10.0 L Hct 34.0 L 29.5 L MCV 81 81 MCH 27.6 27.7 MCHC 34.1 34.1 RDW 14.9 H 15.1 H Plt Count 207 179 Seg Neutrophils % Not Reportable Lymphocytes % Not Reportable Monocytes % Not Reportable Eosinophils % Not Reportable Basophils % Not Reportable Absolute Neutrophils Not Reportable Absolute Lymphocytes Not Reportable Absolute Monocytes Not Reportable Absolute Eosinophils Not Reportable Absolute Basophils Not Reportable Sodium Potassium Chloride Carbon Dioxide Anion Gap BUN Creatinine Est GFR ( Amer) Est GFR (Non-Af Amer) Glucose Calcium Albumin Blood Type A POSITIVE Antibody Screen NEGATIVE 09/28/18 09/28/18 04:15 04:15 WBC RBC Hgb Hct MCV MCH MCHC RDW Plt Count Seg Neutrophils % Lymphocytes % Monocytes % Eosinophils % Basophils % Absolute Neutrophils Absolute Lymphocytes Absolute Monocytes Absolute Eosinophils Absolute Basophils Sodium 130.9 L Potassium 5.0 Chloride 108 H Carbon Dioxide 17 L Anion Gap 6 BUN 16 Creatinine 0.54 Est GFR ( Amer) > 60 Est GFR (Non-Af Amer) > 60 Glucose 171 H Calcium 5.7 L* Albumin 1.6 L Blood Type Antibody Screen Impressions: Abdomen/Pelvis CT 09/25/18 00:00 IMPRESSION: Ileus or partial small bowel obstruction status post multiple bowel surgeries. No high-grade obstruction. Abdomen X-Ray 09/25/18 06:29 IMPRESSION: Difficult to exclude developing small bowel obstruction. Recommend CT. KUB X-Ray 09/25/18 12:03 IMPRESSION: NG tube appears to be in satisfactory position. Acute Abdomen Series 09/26/18 07:00 IMPRESSION: Improvement in the dilated loops of small bowel with few residual g as fluid levels within the pelvis. No evidence of perforation. Chest X-Ray 09/27/18 00:00 IMPRESSION: No pneumothorax following left IJ central line placement Assessment & Plan - Diagnosis (1) Respiratory failure Is this a current diagnosis for this admission?: Yes Plan: Trials of pressure support CPAP wean was Tolerated for 2 hours Resulting in tachypnea (2) Malnutrition Is this a current diagnosis for this admission?: Yes Plan: Consider TPN as enteral feedings not possible at this time (3) Partial small bowel obstruction Is this a current diagnosis for this admission?: Yes Plan: As per surgery - Time Total Critical Time (Minutes): 40
--- NOTE | 2018-10-01 15:33 | PDOC PROGRESS REPORT ---
Subjective Progress Note for:: 09/29/18 Subjective:: intubated and sedated Reason For Visit: SMALL BOWEL OBSTRUCTION Physical Exam Vital Signs: Temp Pulse Resp BP Pulse Ox 98.6 F 127 H 11 L 156/57 H 100 09/29/18 10:00 09/29/18 10:00 09/29/18 10:04 09/29/18 10:04 09/29/18 11:13 Intake & Output 09/28/18 09/29/18 09/30/18 06:59 06:59 06:59 Intake Total 5209 2374 58 Output Total 1070 1950 980 Balance 4194 424 -922 Weight 54.2 kg 56.9 kg General appearance: PRESENT: no acute distress, disheveled, thin Head exam: PRESENT: atraumatic, normocephalic Eye exam: PRESENT: conjunctiva pale. ABSENT: nystagmus, other Mouth exam: PRESENT: dry mucosa, neck supple, tongue midline, other - ET tube Neck exam: ABSENT: carotid bruit, JVD, lymphadenopathy, thyromegaly, tracheal deviation, tracheostomy Respiratory exam: PRESENT: decreased breath sounds, prolonged expiratory phas, rales, rhonchi, unlabored. ABSENT: retraction, stridor, tachypnea Cardiovascular exam: PRESENT: RRR, +S1, +S2, tachycardia Pulses: PRESENT: normal radial pulses GI/Abdominal exam: PRESENT: soft, other - Status post surgery Gentrourinary exam: PRESENT: indwelling catheter Extremities exam: PRESENT: pedal edema. ABSENT: calf tenderness, clubbing, joint swelling Musculoskeletal exam: ABSENT: ambulatory, deformity, dislocation Neurological exam: ABSENT: awake Skin exam: PRESENT: dry, warm Results Laboratory Results: 09/29/18 06:53 09/29/18 06:53 09/28/18 09/28/18 09/28/18 12:46 12:46 14:00 WBC 7.0 RBC 3.87 Hgb 10.4 L Hct 31.2 L MCV 81 MCH 27.0 MCHC 33.5 RDW 15.1 H Plt Count 187 Seg Neutrophils % Not Reportable Lymphocytes % Not Reportable Monocytes % Not Reportable Eosinophils % Not Reportable Basophils % Not Reportable Absolute Neutrophils Not Reportable Absolute Lymphocytes Not Reportable Absolute Monocytes Not Reportable Absolute Eosinophils Not Reportable Absolute Basophils Not Reportable Carbonic Acid 0.88 L HCO3/H2CO3 Ratio 21:1 ABG pH 7.42 ABG pCO2 29.1 L ABG pO2 105.0 H ABG HCO3 18.5 L ABG O2 Saturation 98.0 ABG Base Excess -4.8 FiO2 40% Sodium 132.6 L Potassium 4.9 Chloride 110 H Carbon Dioxide 18 L Anion Gap 5 BUN 14 Creatinine 0.57 Est GFR ( Amer) > 60 Est GFR (Non-Af Amer) > 60 Glucose 105 Calcium 6.5 L* Phosphorus Magnesium 1.4 L Total Bilirubin AST ALT Alkaline Phosphatase Total Protein Albumin Prealbumin 09/29/18 09/29/18 09/29/18 05:40 06:53 06:53 WBC 6.8 RBC 3.10 L Hgb 8.5 L Hct 25.1 L MCV 81 MCH 27.4 MCHC 33.8 RDW 15.6 H Plt Count 150 Seg Neutrophils % Not Reportable Lymphocytes % Not Reportable Monocytes % Not Reportable Eosinophils % Not Reportable Basophils % Not Reportable Absolute Neutrophils Not Reportable Absolute Lymphocytes Not Reportable Absolute Monocytes Not Reportable Absolute Eosinophils Not Reportable Absolute Basophils Not Reportable Carbonic Acid 1.01 L HCO3/H2CO3 Ratio 20:1 ABG pH 7.41 ABG pCO2 33.4 L ABG pO2 154.4 H ABG HCO3 20.6 ABG O2 Saturation 99.0 H ABG Base Excess -3.5 FiO2 40% Sodium 134.8 L Potassium 3.8 D Chloride 112 H Carbon Dioxide 20 L Anion Gap 3 L BUN 11 Creatinine 0.49 L Est GFR ( Amer) > 60 Est GFR (Non-Af Amer) > 60 Glucose 185 H Calcium 6.3 L* Phosphorus 1.6 L Magnesium 2.3 Total Bilirubin 1.5 H AST 100 H ALT 41 Alkaline Phosphatase 28 L Total Protein 3.3 L Albumin 1.6 L Prealbumin 4.4 L 09/26/18 10:40 Clean Catch Midstream Urine Culture - Final NO GROWTH 2 DAYS Impressions: Abdomen/Pelvis CT 09/25/18 00:00 IMPRESSION: Ileus or partial small bowel obstruction status post multiple bowel surgeries. No high-grade obstruction. Abdomen X-Ray 09/25/18 06:29 IMPRESSION: Difficult to exclude developing small bowel obstruction. Recommend CT. KUB X-Ray 09/25/18 12:03 IMPRESSION: NG tube appears to be in satisfactory position. Acute Abdomen Series 09/26/18 07:00 IMPRESSION: Improvement in the dilated loops of small bowel with few residual gas fluid levels within the pelvis. No evidence of perforation. Chest X-Ray 09/29/18 06:00 IMPRESSION: No significant change. Assessment & Plan - Diagnosis (1) Respiratory failure Is this a current diagnosis for this admission?: Yes Plan: Trials of pressure support CPAP wean was Tolerated for 2 hours Resulting in tachypnea (2) Malnutrition Is this a current diagnosis for this admission?: Yes Plan: Consider TPN as enteral feedings not possible at this time (3) Partial small bowel obstruction Is this a current diagnosis for this admission?: Yes Plan: As per surgery - Time Total Critical Time (Minutes): 40
--- NOTE | 2018-10-01 15:35 | PDOC PROGRESS REPORT ---
Subjective Progress Note for:: 09/30/18 Subjective:: intubated and sedated Reason For Visit: SMALL BOWEL OBSTRUCTION Physical Exam Vital Signs: Temp Pulse Resp BP Pulse Ox 97.8 F 99 14 126/52 H 98 09/30/18 08:42 09/30/18 08:42 09/30/18 08:42 09/30/18 08:42 09/30/18 08:42 Intake & Output 09/29/18 09/30/18 10/01/18 06:59 06:59 06:59 Intake Total 2374 3783 0 Output Total 1950 4220 650 Balance 424 -437 -650 Weight 56.9 kg 57.2 kg General appearance: PRESENT: no acute distress, disheveled, thin. ABSENT: cooperative Head exam: PRESENT: atraumatic, normocephalic Eye exam: PRESENT: conjunctiva pale. ABSENT: nystagmus, scleral icterus Mouth exam: PRESENT: dry mucosa, neck supple, tongue midline, other - ET tube Neck exam: ABSENT: carotid bruit, JVD, lymphadenopathy, thyromegaly, tracheal deviation, tracheostomy Respiratory exam: PRESENT: decreased breath sounds, prolonged expiratory phas, rales, rhonchi, symmetrical, unlabored Cardiovascular exam: PRESENT: RRR, +S1, +S2, tachycardia Pulses: PRESENT: normal radial pulses GI/Abdominal exam: PRESENT: soft, other - Status post surgery Gentrourinary exam: PRESENT: indwelling catheter Extremities exam: PRESENT: pedal edema. ABSENT: calf tenderness, clubbing, joint swelling Musculoskeletal exam: ABSENT: ambulatory, deformity, dislocation Neurological exam: ABSENT: awake Skin exam: PRESENT: dry, warm Results Laboratory Results: 09/30/18 03:53 09/30/18 03:53 09/30/18 09/30/18 09/30/18 03:53 03:53 03:53 WBC 8.5 RBC 2.67 L Hgb 7.4 L Hct 21.7 L MCV 81 MCH 27.5 MCHC 33.9 RDW 15.7 H Plt Count 162 Carbonic Acid 1.04 L HCO3/H2CO3 Ratio 19:1 ABG pH 7.39 ABG pCO2 34.7 L ABG pO2 96.3 ABG HCO3 20.4 ABG O2 Saturation 97.3 ABG Base Excess -4.1 FiO2 21% Sodium 136.8 L Potassium 4.2 Chloride 113 H Carbon Dioxide 19 L Anion Gap 5 BUN 10 Creatinine 0.41 L Est GFR ( Amer) > 60 Est GFR (Non-Af Amer) > 60 Glucose 387 H Calcium 6.0 L* Phosphorus 2.0 L Magnesium 2.5 H Total Bilirubin 0.8 AST 96 H ALT 45 Alkaline Phosphatase 30 L Total Protein 3.4 L Albumin 1.6 L Prealbumin 4.3 L Blood Type Antibody Screen 09/30/18 06:53 WBC RBC Hgb Hct MCV MCH MCHC RDW Plt Count Carbonic Acid HCO3/H2CO3 Ratio ABG pH ABG pCO2 ABG pO2 ABG HCO3 ABG O2 Saturation ABG Base Excess FiO2 Sodium Potassium Chloride Carbon Dioxide Anion Gap BUN Creatinine Est GFR ( Amer) Est GFR (Non-Af Amer) Glucose Calcium Phosphorus Magnesium Total Bilirubin AST ALT Alkaline Phosphatase Total Protein Albumin Prealbumin Blood Type A POSITIVE Antibody Screen NEGATIVE Impressions: Abdomen/Pelvis CT 09/25/18 00:00 IMPRESSION: Ileus or partial small bowel obstruction status post multiple bowel surgeries. No high-grade obstruction. Abdomen X-Ray 09/25/18 06:29 IMPRESSION: Difficult to exclude developing small bowel obstruction. Recommend CT. KUB X-Ray 09/25/18 12:03 IMPRESSION: NG tube appears to be in satisfactory position. Acute Abdomen Series 09/26/18 07:00 IMPRESSION: Improvement in the dilated loops of small bowel with few residual gas fluid levels within the pelvis. No evidence of perforation. Chest X-Ray 09/30/18 06:00 IMPRESSION: No significant change. Assessment & Plan - Diagnosis (1) Respiratory failure Is this a current diagnosis for this admission?: Yes Plan: Trials of pressure support CPAP wean was Tolerated for 2 hours Resulting in tachypnea (2) Malnutrition Is this a current diagnosis for this admission?: Yes Plan: Consider TPN as enteral feedings not possible at this time (3) Partial small bowel obstruction Is this a current diagnosis for this admission?: Yes Plan: As per surgery - Time Total Critical Time (Minutes): 45
--- NOTE | 2018-10-01 15:37 | PDOC PROGRESS REPORT ---
Subjective Progress Note for:: 10/01/18 Subjective:: intubated and sedated Reason For Visit: SMALL BOWEL OBSTRUCTION Physical Exam Vital Signs: Temp Pulse Resp BP Pulse Ox 100.2 F 103 H 12 155/66 H 96 10/01/18 05:42 10/01/18 00:05 10/01/18 06:05 10/01/18 06:05 10/01/18 06:05 Intake & Output 09/30/18 10/01/18 10/02/18 06:59 06:59 06:59 Intake Total 3783 3756 Output Total 4221 9479 Balance -437 -1004 Weight 57.2 kg 57.4 kg General appearance: PRESENT: no acute distress, disheveled, well-developed Head exam: PRESENT: atraumatic, normocephalic Eye exam: PRESENT: conjunctiva pale. ABSENT: nystagmus, scleral icterus Mouth exam: PRESENT: dry mucosa, neck supple, tongue midline, other - ET tube Neck exam: ABSENT: carotid bruit, JVD, lymphadenopathy, thyromegaly, tracheal deviation, tracheostomy Respiratory exam: PRESENT: decreased breath sounds, prolonged expiratory phas, rales, rhonchi, unlabored. ABSENT: tachypnea Cardiovascular exam: PRESENT: RRR, +S1, +S2 Pulses: PRESENT: normal radial pulses GI/Abdominal exam: PRESENT: soft, other - Status post surgery Gentrourinary exam: PRESENT: indwelling catheter Extremities exam: PRESENT: pedal edema. ABSENT: calf tenderness, clubbing, joint swelling Musculoskeletal exam: ABSENT: ambulatory, deformity, dislocation Neurological exam: ABSENT: awake Skin exam: PRESENT: dry, warm Results Laboratory Results: 09/30/18 13:15 10/01/18 05:15 09/30/18 10/01/18 10/01/18 13:15 05:15 05:15 WBC 9.9 RBC 3.27 L Hgb 9.4 L Hct 27.1 L MCV 83 MCH 28.8 MCHC 34.7 RDW 15.9 H Plt Count 184 Seg Neutrophils % Not Reportable Lymphocytes % Not Reportable Monocytes % Not Reportable Eosinophils % Not Reportable Basophils % Not Reportable Absolute Neutrophils Not Reportable Absolute Lymphocytes Not Reportable Absolute Monocytes Not Reportable Absolute Eosinophils Not Reportable Absolute Basophils Not Reportable Carbonic Acid 0.96 L HCO3/H2CO3 Ratio 22:1 ABG pH 7.45 ABG pCO2 31.9 L ABG pO2 71.1 L ABG HCO3 21.7 ABG O2 Saturation 95.2 ABG Base Excess -1.9 FiO2 21% Sodium 141.6 Potassium 3.2 L Chloride 115 H Carbon Dioxide 22 Anion Gap 5 BUN 12 Creatinine 0.39 L Est GFR ( Amer) > 60 Est GFR (Non-Af Amer) > 60 Glucose 145 H Calcium 6.7 L* Phosphorus 1.9 L Total Bilirubin 1.2 AST 103 H ALT 62 H Alkaline Phosphatase 74 Total Protein 3.9 L Albumin 1.8 L Prealbumin 5.6 L Impressions: Abdomen/Pelvis CT 09/25/18 00:00 IMPRESSION: Ileus or partial small bowel obstruction status post multiple bowel surgeries. No high-grade obstruction. Abdomen X-Ray 09/25/18 06:29 IMPRESSION: Difficult to exclude developing small bowel obstruction. Recommend CT. KUB X-Ray 09/25/18 12:03 IMPRESSION: NG tube appears to be in satisfactory position. Acute Abdomen Series 09/26/18 07:00 IMPRESSION: Improvement in the dilated loops of small bowel with few residual gas fluid levels within the pelvis. No evidence of perforation. Chest X-Ray 10/01/18 06:00 IMPRESSION: NO SIGNIFICANT CHANGE IN APPEARANCE OF THE CHEST. Assessment & Plan - Diagnosis (1) Respiratory failure Is this a current diagnosis for this admission?: Yes Plan: Trials of pressure support CPAP wean was Tolerated for 2 hours Resulting in tachypnea (2) Malnutrition Is this a current diagnosis for this admission?: Yes Plan: Consider TPN as enteral feedings not possible at this time (3) Partial small bowel obstruction Is this a current diagnosis for this admission?: Yes Plan: As per surgery - Time Total Critical Time (Minutes): 45
[2018-10-01] MEDS: AMINO ACIDS 5%/D25W 1,000 ML IV PRN (16:36)
[2018-10-01] MEDS ORDERED: HYDRALAZINE HCL INJ/PF 20 MG/1 ML SDV IV PRN (17:20)
[2018-10-01] MEDS ORDERED: METOPROLOL TARTRATE PF/INJ 5 MG/5 ML SDV IV PRN (17:22)
--- NOTE | 2018-10-01 17:47 | PDOC CONSULTATION ---
Consultation Consult Date: 10/01/17 Consult reason:: High blood pressure History of Present Illness Admission Date/PCP: 09/25/18 12:19 PATRICIA QUARLES MD History of Present Illness: SANDY WILL is a 73 year old female with history of colon cancer action in remission, multiple abdominal surgeries including 2 colon resections with anastomosis, cholecystectomy and hysterectomy admitted for small bowel obstruction and status post surgery postop day 5. She underwent exploratory laparotomy and lysis of adhesions and small bowel resection. Medical consult was called for management of the blood pressures. Patient is still intubated not consolidations the primary team is trying to wean her off. She has NG tube and a lot of drainage from the NG tube and patient is on TPN. Unable to get any history from the patient. Blood pressure today is 172/82. With heart rate of around 100. The sputum cultures came back positive for gram-positive cocci. But patient is afebrile. As per the notes patient has a very small bowel movement. Past Medical History Cardiac Medical History: Reports: Hypertension Denies: Coronary Artery Disease, Myocardial Infarction Pulmonary Medical History: Denies: Asthma, Bronchitis, Chronic Obstructive Pulmonary Disease (COPD), Pneumonia Neurological Medical History: Denies: Seizures Malignancy Medical History: Reports: Colorectal Cancer, Other - Patient has had multiple surgeries of the abdomen with bowel resection GI Medical History: Reports: Hiatal Hernia Denies: Hepatitis Musculoskeltal Medical History: Denies: Arthritis Hematology: Reports: Anemia - RECENTLY B12 INJ (FOR 4 WEEKS) Denies: Sickle Cell Disease Past Surgical History Past Surgical History: Reports: Appendectomy, Cholecystectomy, Hysterectomy, Other - Colon resection, skin biopsy Denies: Amputation, Mastectomy, Pacemaker Social History Lives with: Spouse/Significant other Smoking Status: Never Smoker Frequency of Alcohol Use: None Hx Recreational Drug Use: No Hx Prescription Drug Abuse: No - Advance Directive Resuscitation Status: Full Code Family History Family History: Reviewed & Not Pertinent Parental Family History Reviewed: Yes Children Family History Reviewed: Yes Sibling(s) Family History Reviewed.: Yes Medication/Allergy Home Medications: Estrogens, Conjugated [Premarin] 1.25 mg PO DAILY 06/02/14 Alendronate Sodium [Fosamax 70 mg Tablet] 70 mg PO DOMINGUEZ@1000 09/25/18 Cholecalciferol (Vitamin D3) [Vitamin D] 50,000 unit PO Q30D 09/25/18 Esomeprazole Magnesium [Nexium] 20 mg PO DAILY 09/25/18 Meloxicam [Mobic] 15 mg PO DAILY 09/25/18 Prednisone [Deltasone 1 mg Tablet] 1 mg PO DAILY 09/25/18 Valsartan/Hydrochlorothiazide [Valsartan-Hctz 80-12.5 mg Tab] 1 each PO DAILY 09/25/18 Allergies/Adverse Reactions: Sulfa (Sulfonamide Antibiotics) Allergy (Verified 04/03/17 09:06) Generalized Itching codeine [Codeine] Adverse Reaction (Mild, Verified 04/03/17 09:06) Nausea Review of Systems ROS unobtainable: Due to endotracheal tube - Unable to obtain review of the systems because the patient is intubated. Physical Exam Vital Signs: Temp Pulse Resp BP Pulse Ox 99.0 F 122 H 16 172/71 H 96 10/01/18 15:55 10/01/18 15:55 10/01/18 17:00 10/01/18 16:50 10/01/18 17:00 Intake & Output 09/30/18 10/01/18 10/02/18 06:59 06:59 06:59 Intake Total 3783 3756 3088 Output Total 4220 4760 1600 Balance -437 -1004 1488 Weight 57.2 kg 57.4 kg General appearance: PRESENT: other - She is not under sedation but not re sponding well. She is looks like agitated and restless. Head exam: PRESENT: atraumatic Neck exam: ABSENT: carotid bruit, JVD, lymphadenopathy, thyromegaly Respiratory exam: PRESENT: other - Patient is still intubated and transmitted breath sounds. Cardiovascular exam: PRESENT: tachycardia GI/Abdominal exam: PRESENT: other - Surgical site is clean and bowel sounds are very sluggish. Neurological exam: PRESENT: other - Patient was intubated and getting IV morphine and Ativan. She is awake but not communicating. Psychiatric exam: PRESENT: agitated Results Laboratory Results: 09/30/18 13:15 10/01/18 15:30 10/01/18 10/01/18 10/01/18 05:15 05:15 15:30 Carbonic Acid 0.96 L HCO3/H2CO3 Ratio 22:1 ABG pH 7.45 ABG pCO2 31.9 L ABG pO2 71.1 L ABG HCO3 21.7 ABG O2 Saturation 95.2 ABG Base Excess -1.9 FiO2 21% Sodium 141.6 Potassium 3.2 L 4.4 D Chloride 115 H Carbon Dioxide 22 Anion Gap 5 BUN 12 Creatinine 0.39 L Est GFR ( Amer) > 60 Est GFR (Non-Af Amer) > 60 Glucose 145 H Calcium 6.7 L* Phosphorus 1.9 L Total Bilirubin 1.2 AST 103 H ALT 62 H Alkaline Phosphatase 74 Total Protein 3.9 L Albumin 1.8 L Prealbumin 5.6 L Impressions: Abdomen/Pelvis CT 09/25/18 00:00 IMPRESSION: Ileus or partial small bowel obstruction status post multiple bowel surgeries. No high-grade obstruction. Abdomen X-Ray 09/25/18 06:29 IMPRESSION: Difficult to exclude developing small bowel obstruction. Recommend CT. KUB X-Ray 09/25/18 12:03 IMPRESSION: NG tube appears to be in satisfactory position. Acute Abdomen Series 09/26/18 07:00 IMPRESSION: Improvement in the dilated loops of small bowel with few residual gas fluid levels within the pelvis. No evidence of perforation. Chest X-Ray 10/01/18 06:00 IMPRESSION: NO SIGNIFICANT CHANGE IN APPEARANCE OF THE CHEST. Assessment & Plan - Diagnosis (1) Respiratory failure Is this a current diagnosis for this admission?: Yes Plan: 10/01/2017-patient is still intubated pulse ox is 96%. Planning to wean her off tomorrow. Pulmonary is on board. Sputum culture showing gram-positive cocci. Started on Invanz. X-ray shows left lower lobe airspace disease and patchy right basilar density. (2) Hypertension Is this a current diagnosis for this admission?: Yes Plan: 10/11/2018 patient blood pressure today 172/81 she has history of hypertension patient is on valsartan/hydrochlorothiazide 80, 12.5 mg p.o. daily I am going to start on hydralazine 10 mg IV every 6 as needed for blood pressure more than 150. Patient is also tachycardic. I put her on Lopressor 5 mg IV every 6 as needed for heart rate more than 120. Patient is on IV fluids at 125 cc/h I decreased it to 50 cc/h today. (3) Partial small bowel obstruction Is this a current diagnosis for this admission?: Yes Plan: 10/01/2017--patient was admitted for partial small bowel obstruction status post surgery this is postop day 5. She underwent exploratory laparotomy with lysis of adhesions and bowel resection. The surgical site is clean. Patient is still have NG tube a lot of drainage from the NG tube she has a small amount of movement. The bowel sounds are sluggish. surgical drain present with clear drainage.. (4) Anemia Qualifiers: Anemia type: iron deficiency Is this a current diagnosis for this admission?: Yes Plan: 10/01/2018-patient hemoglobin is 11.6 on 09/27/2018 dropped to 8.5 after blood transfusions improved to 9.4 yesterday I am going to repeat the CBC tomorrow. - Time Time Spent: 50 to 70 Minutes Medications reviewed and adjusted accordingly: Yes
[2018-10-01] MEDS ORDERED: ACETAMINOPHEN SOLN 325 MG/10.15 ML UDCUP ONE (22:07)
[2018-10-01] MEDS: INSULIN REG, HUMAN 100 UNIT/ML 3 ML VIAL (PYX) SUBCUT PRN (23:42)
[2018-10-02] MEDS: LEVALBUTEROL HCL NEB 1.25 MG/3 ML AMPUL NEB SCH ×3 (01:13→16:26)
[2018-10-02] MEDS: MORPHINE SULFATE 10 MG/ML INJ IV PRN (01:21)
[2018-10-02] MEDS: NORMAL SALINE 1000 ML 1,000 ML IV PRN ×2 (01:38→23:57)
[2018-10-02 04:49] LABS: ARTERIAL BLOOD BASE EXCESS -2.4 mmol/L; ARTERIAL BLOOD H2CO3 0.84 mmol/L (1.05-1.35); ARTERIAL BLOOD HCO3 20.3 mmol/L (20-24); ARTERIAL BLOOD O2 SATURATION 95.3 % (94-98); ARTERIAL BLOOD PH 7.48 (7.35-7.45); ARTERIAL BLOOD PO2 69.6 mmHg (80-100); ARTERIAL BLOOD TOTAL CO2 21.2 mmol/L (21-25)
[2018-10-02 04:50] LABS: ARTERIAL BLOOD FIO2 25%
[2018-10-02 04:51] LABS: HEMATOCRIT 28.1 % (36.0-47.0); HEMOGLOBIN 9.5 g/dL (12.0-15.5); MEAN CORPUSCULAR HEMOGLOBIN 27.9 pg (27.0-33.4); MEAN CORPUSCULAR HGB CONC 33.7 g/dL (32.0-36.0); MEAN CORPUSCULAR VOLUME 83 fl (80-97); PLATELET COUNT 323 10^3/uL (150-450); RED BLOOD COUNT 3.41 10^6/uL (3.72-5.28); WHITE BLOOD COUNT 11.5 10^3/uL (4.0-10.5)
[2018-10-02 05:12] LABS: ANION GAP 6 (5-19); BLOOD UREA NITROGEN 12 mg/dL (7-20); CALCIUM 7.2 mg/dL (8.4-10.2); CARBON DIOXIDE 23 mmol/L (22-30); CHLORIDE 110 mmol/L (98-107); GLUCOSE 155 mg/dL (75-110); PHOSPHORUS 2.7 mg/dL (2.5-4.5); POTASSIUM 3.7 mmol/L (3.6-5.0); SODIUM 139.1 mmol/L (137-145)
[2018-10-02 05:15] LABS: ABSOLUTE MONOCYTES # (MANUAL) 1.5 10^3/uL (0.1-1.4); ABSOLUTE NEUTROPHILS# (MANUAL) 8.1 10^3/uL (1.7-8.2); ANISOCYTOSIS 1+; BASOPHILS % (MANUAL) 0 % (0-2); EOSINOPHILS % (MANUAL) 0 % (0-6); LYMPHOCYTES % (MANUAL) 17 % (13-45); MONOCYTES % (MANUAL) 13 % (3-13); PLATELET COMMENT ADEQUATE; PLATELET GIANT PRESENT; PLATELET LARGE PRESENT; POLYCHROMASIA SLIGHT; SCHISTOCYTES SLIGHT; SEGMENTED NEUTROPHILS % (MAN) 70 % (42-78); TOTAL CELLS COUNTED 100; TOXIC GRANULATION 1+
[2018-10-02] MEDS: INSULIN REG, HUMAN 100 UNIT/ML 3 ML VIAL (PYX) SUBCUT PRN (05:42)
[2018-10-02] MEDS: PROPOFOL 1,000 MG/100 ML INFUS..BTL IV PRN ×3 (05:45→23:57)
[2018-10-02] MEDS: ACETAMINOPHEN SOLN 325 MG/10.15 ML UDCUP NG PRN ×2 (06:30→15:20)
--- NOTE | 2018-10-02 06:52 | RADIOLOGY REPORT (SQ) ---
EXAM DESCRIPTION: X-ray single view chest. CLINICAL HISTORY: 73 years Female, resp failure COMPARISON: 10/01/2018 and 09/30/2018 TECHNIQUE: Single portable view of the chest performed on 10/02/2018 at 6:33 AM FINDINGS: The lungs are well expanded. There is volume loss in the left lung base likely due to atelectasis. An infectious or inflammatory process is not excluded. There is mild hazy opacification of the right inferior hemithorax which could be related to atelectasis. There is no evidence of a pneumothorax. The cardiac silhouette is normal in size and configuration. The mediastinal contours are normal. No acute osseous abnormality is identified. No focal soft tissue abnormalities are seen. Lines and tubes: The endotracheal tube, feeding tube and left IJ central venous catheter are grossly stable. IMPRESSION: 1. Ongoing volume loss in the left lung base which may be due to atelectasis or inflammatory changes. 2. Hazy opacification in the right inferior hemithorax. 3. Grossly stable life support lines and tubes.
--- NOTE | 2018-10-02 07:30 | PDOC PROGRESS REPORT ---
Subjective Progress Note for:: 10/02/18 Subjective:: pod 6 s/p exploratory laparotomy with small bowel resection and lyisis of adhesions Reason For Visit: SMALL BOWEL OBSTRUCTION pt spiked fever last pm to 101.7 seen by herberth mcgheerted on invance (not given as yet) cxr shows early infiltrate rt upper lobe sputum cults muti orgnanisms' started on lopressor prn and hydralizine. ivf decreased to 50cc/hr tpn Physical Exam Vital Signs: Temp Pulse Resp BP Pulse Ox 101.7 F H 96 19 141/55 H 96 10/02/18 05:52 10/02/18 00:15 10/02/18 06:00 10/02/18 05:52 10/02/18 06:00 Intake & Output 10/01/18 10/02/18 10/03/18 06:59 06:59 06:59 Intake Total 3756 3281 Output Total 4760 4175 Balance -1004 -894 Weight 57.4 kg 53.8 kg General appearance: PRESENT: mild distress - responsive, not to commands Respiratory exam: PRESENT: crackles GI/Abdominal exam: PRESENT: other - wound clean, hypoactive bs crystal serous passing stool Results Laboratory Results: 10/02/18 04:27 10/02/18 04:27 10/01/18 10/02/18 10/02/18 15:30 04:27 04:27 WBC 11.5 H RBC 3.41 L Hgb 9.5 L Hct 28.1 L MCV 83 MCH 27.9 MCHC 33.7 RDW 16.0 H Plt Count 323 Seg Neutrophils % Not Reportable Lymphocytes % Not Reportable Monocytes % Not Reportable Eosinophils % Not Reportable Basophils % Not Reportable Absolute Neutrophils Not Reportable Absolute Lymphocytes Not Reportable Absolute Monocytes Not Reportable Absolute Eosinophils Not Reportable Absolute Basophils Not Reportable Carbonic Acid HCO3/H2CO3 Ratio ABG pH ABG pCO2 ABG pO2 ABG HCO3 ABG O2 Saturation ABG Base Excess FiO2 Sodium 139.1 Potassium 4.4 D 3.7 Chloride 110 H Carbon Dioxide 23 Anion Gap 6 BUN 12 Creatinine 0.37 L Est GFR ( Amer) > 60 Est GFR (Non-Af Amer) > 60 Glucose 155 H Calcium 7.2 L Phosphorus 2.7 Magnesium 2.1 10/02/18 04:35 WBC RBC Hgb Hct MCV MCH MCHC RDW Plt Count Seg Neutrophils % Lymphocytes % Monocytes % Eosinophils % Basophils % Absolute Neutrophils Absolute Lymphocytes Absolute Monocytes Absolute Eosinophils Absolute Basophils Carbonic Acid 0.84 L HCO3/H2CO3 Ratio 24:1 ABG pH 7.48 H ABG pCO2 28.0 L ABG pO2 69.6 L ABG HCO3 20.3 ABG O2 Saturation 95.3 ABG Base Excess -2.4 FiO2 25% Sodium Potassium Chloride Carbon Dioxide Anion Gap BUN Creatinine Est GFR ( Amer) Est GFR (Non-Af Amer) Glucose Calcium Phosphorus Magnesium 10/02/18 04:27 NT-Pro-B Natriuret Pep 379 Impressions: Abdomen/Pelvis CT 09/25/18 00:00 IMPRESSION: Ileus or partial small bowel obstruction status post multiple bowel surgeries. No high-grade obstruction. Abdomen X-Ray 09/25/18 06:29 IMPRESSION: Difficult to exclude developing small bowel obstruction. Recommend CT. KUB X-Ray 09/25/18 12:03 IMPRESSION: NG tube appears to be in satisfactory position. Acute Abdomen Series 09/26/18 07:00 IMPRESSION: Improvement in the dilated loops of small bowel with few residual gas fluid levels within the pelvis. No evidence of perforation. Chest X-Ray 10/02/18 06:00 IMPRESSION: 1. Ongoing volume loss in the left lung base which may be due to atelectasis or inflammatory changes. 2. Hazy opacification in the right inferior hemithorax. 3. Grossly stable life support lines and tubes. Assessment & Plan - Diagnosis (1) Partial small bowel obstruction Is this a current diagnosis for this admission?: Yes - Plan Summary Plan Summary: post op day 6 extensive lyiss of adhesions and small bowel resection still on vent on propofol temp increase to 101.7 just restated on iv ab x will cont tpn vent management per pulmorary appreciated input from id.
--- NOTE | 2018-10-02 09:27 | PDOC PROGRESS REPORT ---
Subjective Progress Note for:: 10/02/18 Subjective:: 10/02/2018-patient had a spiking fever T-max of 101.7 this morning. The chest x- ray done this morning indicates possible atelectasis in the right inferior compartment. Patient was started on Invanz from this morning. Patient is also having the foul-smelling stools several of them and I requested the nurse to send for C. difficile. Patient is on vent off the morphine ,tappeing off diprivan, pulse oxes 98% on 25% oxygen plan is to try to wean her off today. is at bedside and discussed the plan of care with him for more than 15 minutes and happy with the management so far. Reason For Visit: SMALL BOWEL OBSTRUCTION Physical Exam Vital Signs: Temp Pulse Resp BP Pulse Ox 99.9 F 103 H 16 126/53 H 94 10/02/18 08:00 10/02/18 08:00 10/02/18 08:00 10/02/18 08:00 10/02/18 08:00 Intake & Output 10/01/18 10/02/18 10/03/18 06:59 06:59 06:59 Intake Total 3756 3281 28 Output Total 4760 4175 125 Balance -1004 -894 -97 Weight 57.4 kg 53.8 kg General appearance: PRESENT: other - Still intubated comfortably sleeping. Head exam: PRESENT: atraumatic Eye exam: PRESENT: PERRLA Mouth exam: PRESENT: moist Neck exam: ABSENT: carotid bruit, JVD, lymphadenopathy, thyromegaly Respiratory exam: PRESENT: decreased breath sounds Cardiovascular exam: PRESENT: tachycardia GI/Abdominal exam: PRESENT: other - The surgical site dark stained drainage is present. Bowel sounds are sluggish. Neurological exam: PRESENT: other - Patient is under sedation. Psychiatric exam: ABSENT: agitated, anxious Results Laboratory Results: 10/02/18 04:27 10/02/18 04:27 10/01/18 10/02/18 10/02/18 15:30 04:27 04:27 WBC 11.5 H RBC 3.41 L Hgb 9.5 L Hct 28.1 L MCV 83 MCH 27.9 MCHC 33.7 RDW 16.0 H Plt Count 323 Seg Neutrophils % Not Reportable Lymphocytes % Not Reportable Monocytes % Not Reportable Eosinophils % Not Reportable Basophils % Not Reportable Absolute Neutrophils Not Reportable Absolute Lymphocytes Not Reportable Absolute Monocytes Not Reportable Absolute Eosinophils Not Reportable Absolute Basophils Not Reportable Carbonic Acid HCO3/H2CO3 Ratio ABG pH ABG pCO2 ABG pO2 ABG HCO3 ABG O2 Saturation ABG Base Excess FiO2 Sodium 139.1 Potassium 4.4 D 3.7 Chloride 110 H Carbon Dioxide 23 Anion Gap 6 BUN 12 Creatinine 0.37 L Est GFR ( Amer) > 60 Est GFR (Non-Af Amer) > 60 Glucose 155 H Calcium 7.2 L Phosphorus 2.7 Magnesium 2.1 10/02/18 04:35 WBC RBC Hgb Hct MCV MCH MCHC RDW Plt Count Seg Neutrophils % Lymphocytes % Monocytes % Eosinophils % Basophils % Absolute Neutrophils Absolute Lymphocytes Absolute Monocytes Absolute Eosinophils Absolute Basophils Carbonic Acid 0.84 L HCO3/H2CO3 Ratio 24:1 ABG pH 7.48 H ABG pCO2 28.0 L ABG pO2 69.6 L ABG HCO3 20.3 ABG O2 Saturation 95.3 ABG Base Excess -2.4 FiO2 25% Sodium Potassium Chloride Carbon Dioxide Anion Gap BUN Creatinine Est GFR ( Amer) Est GFR (Non-Af Amer) Glucose Calcium Phosphorus Magnesium 10/02/18 04:27 NT-Pro-B Natriuret Pep 379 Impressions: Abdomen/Pelvis CT 09/25/18 00:00 IMPRESSION: Ileus or partial small bowel obstruction status post multiple bowel surgeries. No high-grade obstruction. Abdomen X-Ray 09/25/18 06:29 IMPRESSION: Difficult to exclude developing small bowel obstruction. Recommend CT. KUB X-Ray 09/25/18 12:03 IMPRESSION: NG tube appears to be in satisfactory position. Acute Abdomen Series 09/26/18 07:00 IMPRESSION: Improvement in the dilated loops of small bowel with few residual gas fluid levels within the pelvis. No evidence of perforation. Chest X-Ray 10/02/18 06:00 IMPRESSION: 1. Ongoing volume loss in the left lung base which may be due to atelectasis or inflammatory changes. 2. Hazy opacification in the right inferior hemithorax. 3. Grossly stable life support lines and tubes. Assessment & Plan - Diagnosis (1) Respiratory failure Is this a current diagnosis for this admission?: Yes Plan: 10/01/2018-patient is still intubated pulse ox is 96%. Planning to wean her off tomorrow. Pulmonary is on board. Sputum culture showing gram-positive cocci. Started on Invanz. X-ray shows left lower lobe airspace disease and patchy right basilar density. 10/02/2018-pulse ox is 96% on 25% oxygen. Patient is still on mechanical ventilation. Plan is to wean her off today. ABG done today on 25% oxygen pH is 7.48 PCO2 28 PO2 69.6 bicarb is 20.3. Hypoxia and hypercapnia resolving. Chest x-ray shows opacification in the right inferior lobe plan to do the CT chest without contrast today. Patient spiked a fever of 101.7, she was started on Invanz and requested for ID consult. sputum cultures shows gram-positive cocci and blood cultures were sent. (2) Hypertension Is this a current diagnosis for this admission?: Yes Plan: 10/01/2018 patient blood pressure today 172/81 she has history of hypertension patient is on valsartan/hydrochlorothiazide 80, 12.5 mg p.o. daily I am going to start on hydralazine 10 mg IV every 6 as needed for blood pressure more than 150. Patient is also tachycardic. I put her on Lopressor 5 mg IV every 6 as needed for heart rate more than 120. Patient is on IV fluids at 125 cc/h I decreased it to 50 cc/h today. 10/02/2018-pressure today is 141/55 pulse rate is 110 she was started on hydralazine 10 mg IV every 6 as needed for blood pressure of more than 150. Plan is to start her on valsartan/hydrochlorothiazide via NG tube. (3) Partial small bowel obstruction Is this a current diagnosis for this admission?: Yes Plan: 10/01/2018--patient was admitted for partial small bowel obstruction status post surgery this is postop day 5. She underwent exploratory laparotomy with lysis of adhesions and bowel resection. The surgical site is clean. Patient is still have NG tube a lot of drainage from the NG tube she has a small amount of movement. The bowel sounds are sluggish. surgical drain present with clear drainage.. 10/02/2018-patient was admitted with small bowel obstruction status post surgery day 6 today. Still has NG tube a lot of drainage from the NG tube, foul- smelling bowel stools darkish colored drainage from the surgical wound. Started on Invanz, requested to send the stool for C. difficile and was started on Flagyl 500 mg IV daily. ID consult was requested. CT chest without contrast was requested. (4) Anemia Qualifiers: Anemia type: iron deficiency Is this a current diagnosis for this admission?: Yes Plan: 10/01/2018-patient hemoglobin is 11.6 on 09/27/2018 dropped to 8.5 after blood transfusions improved to 9.4 yesterday I am going to repeat the CBC tomorrow. 10/02/2018-hemoglobin is stable 8.5 she required blood transfusions during the hospital stay couple of days ago her hemoglobin dropped to 8.5. Dr. Curran mineral ore processing labourer on board. - Time Time Spent with patient: 25-34 minutes Medications reviewed and adjusted accordingly: Yes
[2018-10-02] MEDS ORDERED: ERTAPENEM SODIUM INJ 1 GM VIAL IV SCH (10:00)
[2018-10-02] MEDS: ERTAPENEM SODIUM 1 GM in NORMAL SALINE 50 ML IV SCH (10:35)
[2018-10-02] MEDS: HYDROCHLOROTHIAZIDE 25 MG TABLET PO SCH (11:18)
[2018-10-02] MEDS: VALSARTAN 80 MG TABLET PO SCH (11:18)
[2018-10-02] MEDS: METRONIDAZOLE 500 MG/NS RTU 500 MG/100 ML RTUPB IV SCH (11:23)
--- NOTE | 2018-10-02 16:08 | RADIOLOGY REPORT (SQ) ---
EXAM DESCRIPTION: CT CHEST WITHOUT COMPLETED DATE/TIME: 10/02/2018 3:03 pm REASON FOR STUDY: pneumonia COMPARISON: Chest x-ray dated 10/02/2018. TECHNIQUE: CT scan performed of the chest without intravenous contrast. Images reviewed with lung, soft tissue and bone windows. Reconstructed coronal and sagittal MPR images reviewed. All images st ored on PACS. All CT scanners at this facility use dose modulation, iterative reconstruction, and/or weight based d osing when appropriate to reduce radiation dose to as low as reasonably achievable (ALARA). [facility]: Dose Right [facility]: CareDose [facility]: Dose Right [facility]: Teradose 4D [facility]: [employer] RADIATION DOSE: CT Rad equipment meets quality standard of care and radiation dose reduction techniq ues were employed. CTDIvol: 9.7 mGy. DLP: 320 mGy-cm. mGy. LIMITATIONS: No technical limitations. FINDINGS: LUNGS AND PLEURA: Moderate bilateral pleural effusions. Mild parenchymal densities in the posterior lung bases. Lungs otherwise clear. HILAR AND MEDIASTINAL STRUCTURES: No identified masses or abnormal nodes. No obvious aneurysm. HEART AND VASCULAR STRUCTURES: No aneurysm. No pericardial effusion. UPPER ABDOMEN: No significant findings. Limited exam. THYROID AND OTHER SOFT TISSUES: No masses. No adenopathy. BONES: No significant finding. HARDWARE: Endotracheal tube, nasogastric tube, and central line. OTHER: No other significant findings. IMPRESSION: MODERATE BILATERAL PLEURAL EFFUSIONS WITH MILD BASILAR ATELECTASIS. TECHNICAL DOCUMENTATION: JOB ID: [id number] Quality ID # [id number]: Final reports with documentation of one or more dose reduction techniques (e.g., Au tomated exposure control, adjustment of the mA and/or kV according to patient size, use of iterative reconstruction technique) 2010 [employer]- All Rights Reserved Reading location - IP/workstation name: [email or web address]
[2018-10-02] MEDS: AMINO ACIDS 5%/D25W 1,000 ML IV PRN (17:15)
--- NOTE | 2018-10-02 17:49 | Progress Note ---
Provider Note Provider Note: Called to evaluate pt. Increased drainage from midline wound. Several tashi removed. Small amount of purulent drainage present. No evidence of fistula. Fascia in-tact. Start damp dressing changes BID.
[2018-10-03] MEDS: ACETAMINOPHEN SOLN 325 MG/10.15 ML UDCUP NG PRN ×2 (00:13→10:56)
[2018-10-03] MEDS: LEVALBUTEROL HCL NEB 1.25 MG/3 ML AMPUL NEB SCH ×3 (01:08→17:12)
[2018-10-03 05:19] LABS: ARTERIAL BLOOD BASE EXCESS 0.2 mmol/L; ARTERIAL BLOOD H2CO3 0.95 mmol/L (1.05-1.35); ARTERIAL BLOOD HCO3 22.8 mmol/L (20-24); ARTERIAL BLOOD O2 SATURATION 97.8 % (94-98); ARTERIAL BLOOD PCO2 31.4 mmHg (35-45); ARTERIAL BLOOD PH 7.48 (7.35-7.45); ARTERIAL BLOOD PO2 95.3 mmHg (80-100); ARTERIAL BLOOD TOTAL CO2 23.8 mmol/L (21-25)
[2018-10-03 05:22] LABS: HEMATOCRIT 26.7 % (36.0-47.0); HEMOGLOBIN 8.9 g/dL (12.0-15.5); MEAN CORPUSCULAR HEMOGLOBIN 27.4 pg (27.0-33.4); MEAN CORPUSCULAR HGB CONC 33.3 g/dL (32.0-36.0); MEAN CORPUSCULAR VOLUME 82 fl (80-97); PLATELET COUNT 383 10^3/uL (150-450); RED BLOOD COUNT 3.25 10^6/uL (3.72-5.28); WHITE BLOOD COUNT 12.8 10^3/uL (4.0-10.5)
[2018-10-03 05:25] LABS: ARTERIAL BLOOD FIO2 25%
[2018-10-03 05:32] LABS: ALANINE AMINOTRANSFERASE 60 U/L (9-52); ALKALINE PHOSPHATASE 66 U/L (38-126); ANION GAP 9 (5-19); ASPARTATE AMINO TRANSFERASE 34 U/L (14-36); BILIRUBIN,DIRECT 0.8 mg/dL (0.0-0.4); BILIRUBIN,TOTAL 1.2 mg/dL (0.2-1.3); BLOOD UREA NITROGEN 13 mg/dL (7-20); CALCIUM 7.5 mg/dL (8.4-10.2); CARBON DIOXIDE 24 mmol/L (22-30); CHLORIDE 107 mmol/L (98-107); GLUCOSE 195 mg/dL (75-110); PHOSPHORUS 3.8 mg/dL (2.5-4.5); POTASSIUM 3.1 mmol/L (3.6-5.0); SODIUM 139.5 mmol/L (137-145); TOTAL PROTEIN 4.1 g/dL (6.3-8.2)
[2018-10-03 05:42] LABS: SEGMENTED NEUTROPHILS % (MAN) 78 % (42-78); TOTAL CELLS COUNTED 100
[2018-10-03 05:43] LABS: ABSOLUTE LYMPHOCYTES# (MANUAL) 0.8 10^3/uL (0.5-4.7); ABSOLUTE MONOCYTES # (MANUAL) 0.4 10^3/uL (0.1-1.4); ABSOLUTE NEUTROPHILS# (MANUAL) 11.6 10^3/uL (1.7-8.2); BASOPHILS % (MANUAL) 0 % (0-2); EOSINOPHILS % (MANUAL) 0 % (0-6); LYMPHOCYTES % (MANUAL) 5 % (13-45); METAMYELOCYTES % (MANUAL) 1 % (0); MONOCYTES % (MANUAL) 3 % (3-13); NUCLEATED RED BLOOD CELLS 1 /100 WBC (0); TOXIC GRANULATION 1+
[2018-10-03 05:44] LABS: ANISOCYTOSIS 1+; BAND NEUTROPHILS % (MANUAL) 12 % (3-5); PLATELET COMMENT ADEQUATE; ROULEAUX SLIGHT
[2018-10-03] MEDS: PROPOFOL 1,000 MG/100 ML INFUS..BTL IV PRN ×3 (06:30→18:11)
[2018-10-03] MEDS ORDERED: POTASSIUM CHLORIDE 20 MEQ/15 ML UDCUP PO ONE ×2 (08:00→11:15)
--- NOTE | 2018-10-03 08:45 | PDOC PROGRESS REPORT ---
Subjective Progress Note for:: 10/03/18 Subjective:: 10/02/2018-patient had a spiking fever T-max of 101.7 this morning. The chest x- ray done this morning indicates possible atelectasis in the right inferior compartment. Patient was started on Invanz from this morning. Patient is also having the foul-smelling stools several of them and I requested the nurse to send for C. difficile. Patient is on vent off the morphine ,tappeing off diprivan, pulse oxes 98% on 25% oxygen plan is to try to wean her off today. is at bedside and discussed the plan of care with him for more than 15 minutes and happy with the management so far. 10/03/2018 patient was still intubated pulse ox is 100% on 25% oxygen ABG shows improvement on p.o. to. But the patient is still febrile T-max is 101.7. Foul- smelling drainage of purulent drainage from the surgical wound. A call to are who is front desk supervisor and he advised me to call Dr. Lovelace. I spoke to Dr. Lovelace he was very nice to me he said please do the CAT scan of the abdomen and he will be on the way to examine the patient appreciate his concern. Talk to Dr. Damon he said not to extubate the patient today because there is a possibility of surgery today. CT abdomen and pelvis without contrast and wound cultures were requested. The pharmacy and requested consultation from Dr. Grant. C. difficile came back negative. Presently on Invanz and Flagyl. Reason For Visit: SMALL BOWEL OBSTRUCTION Physical Exam Vital Signs: Temp Pulse Resp BP Pulse Ox 99.9 F 88 25 H 128/53 H 100 10/03/18 06:00 10/03/18 05:49 10/03/18 06:00 10/03/18 05:51 10/03/18 05:51 Intake & Output 10/02/18 10/03/18 10/04/18 06:59 06:59 06:59 Intake Total 3281 2196 Output Total 6577 5688 420 Balance -894 -1614 -420 Weight 53.8 kg 52 kg General appearance: PRESENT: other - Still intubated on mechanical ventilation patient on sedatives. Head exam: PRESENT: atraumatic Eye exam: PRESENT: PERRLA Neck exam: ABSENT: carotid bruit, JVD, lymphadenopathy, thyromegaly Respiratory exam: PRESENT: decreased breath sounds, other - Patient still intubated under sedation. To extubate is on hold. Cardiovascular exam: PRESENT: tachycardia Pulses: PRESENT: normal dorsalis pedis pul GI/Abdominal exam: PRESENT: other - Bowel sounds are very very sluggish. Foul- smelling drainage from the surgical wound. Neurological exam: PRESENT: alert, awake, oriented to person, oriented to place, oriented to time, oriented to situation, CN II-XII grossly intact. ABSENT: motor sensory deficit Psychiatric exam: PRESENT: appropriate affect, normal mood. ABSENT: homicidal ideation, suicidal ideation Results Laboratory Results: 10/03/18 05:00 10/03/18 05:00 10/02/18 10/02/18 10/03/18 18:30 23:30 05:00 WBC RBC Hgb Hct MCV MCH MCHC RDW Plt Count Seg Neutrophils % Lymphocytes % Monocytes % Eosinophils % Basophils % Absolute Neutrophils Absolute Lymphocytes Absolute Monocytes Absolute Eosinophils Absolute Basophils Carbonic Acid 0.95 L HCO3/H2CO3 Ratio 24:1 ABG pH 7.48 H ABG pCO2 31.4 L ABG pO2 95.3 ABG HCO3 22.8 ABG O2 Saturation 97.8 ABG Base Excess 0.2 FiO2 25% Sodium Potassium Chloride Carbon Dioxide Anion Gap BUN Creatinine Est GFR ( Amer) Est GFR (Non-Af Amer) Glucose Lactic Acid 1.5 1.3 Calcium Phosphorus Magnesium Total Bilirubin AST ALT Alkaline Phosphatase Total Protein Albumin Prealbumin 10/03/18 10/03/18 05:00 05:00 WBC 12.8 H RBC 3.25 L Hgb 8.9 L Hct 26.7 L MCV 82 MCH 27.4 MCHC 33.3 RDW 17.0 H Plt Count 383 Seg Neutrophils % Not Reportable Lymphocytes % Not Reportable Monocytes % Not Reportable Eosinophils % Not Reportable Basophils % Not Reportable Absolute Neutrophils Not Reportable Absolute Lymphocytes Not Reportable Absolute Monocytes Not Reportable Absolute Eosinophils Not Reportable Absolute Basophils Not Reportable Carbonic Acid HCO3/H2CO3 Ratio ABG pH ABG pCO2 ABG pO2 ABG HCO3 ABG O2 Saturation ABG Base Excess FiO2 Sodium 139.5 Potassium 3.1 L Chloride 107 Carbon Dioxide 24 Anion Gap 9 BUN 13 Creatinine 0.40 L Est GFR ( Amer) > 60 Est GFR (Non-Af Amer) > 60 Glucose 195 H Lactic Acid Calcium 7.5 L Phosphorus 3.8 Magnesium 2.4 H Total Bilirubin 1.2 AST 34 ALT 60 H Alkaline Phosphatase 66 Total Protein 4.1 L Albumin 2.0 L Prealbumin 7.0 L 10/02/18 04:27 NT-Pro-B Natriuret Pep 379 Impressions: Abdomen/Pelvis CT 09/25/18 00:00 IMPRESSION: Ileus or partial small bowel obstruction status post multiple bowel surgeries. No high-grade obstruction. Abdomen X-Ray 09/25/18 06:29 IMPRESSION: Difficult to exclude developing small bowel obstruction. Recommend CT. KUB X-Ray 09/25/18 12:03 IMPRESSION: NG tube appears to be in satisfactory position. Acute Abdomen Series 09/26/18 07:00 IMPRESSION: Improvement in the dilated loops of small bowel with few residual gas fluid levels within the pelvis. No evidence of perforation. Chest CT 10/02/18 00:00 IMPRESSION: MODERATE BILATERAL PLEURAL EFFUSIONS WITH MILD BASILAR ATELECTASIS. Assessment & Plan - Diagnosis (1) Respiratory failure Qualifiers: Chronicity: acute Is this a current diagnosis for this admission?: Yes Plan: 10/01/2018-patient is still intubated pulse ox is 96%. Planning to wean her off tomorrow. Pulmonary is on board. Sputum culture showing gram-positive cocci. Started on Invanz. X-ray shows left lower lobe airspace disease and patchy right basilar density. 10/02/2018-pulse ox is 96% on 25% oxygen. Patient is still on mechanical ventilation. Plan is to wean her off today. ABG done today on 25% oxygen pH is 7.48 PCO2 28 PO2 69.6 bicarb is 20.3. Hypoxia and hypercapnia resolving. Chest x-ray shows opacification in the right inferior lobe plan to do the CT chest without contrast today. Patient spiked a fever of 101.7, she was started on Invanz and requested for ID consult. sputum cultures shows gram-positive cocci and blood cultures were sent. 10/03/2017-patient still on ventilator pulse ox is 100% on 25% oxygen. ABG today shows pH of 7.48/PCO2 of 31.4/PO2 95/bicarb is 22.8. we are planning to hold off the extubation today. Because of the possibility of exploratory laparotomy today. CT chest was done for possibility of sepsis with pneumonia and it shows bilateral moderate pleural effusions. No specific evidence of pneumonia. Patient has T-max of 101.7 patient is on Invanz and Flagyl. (2) Hypertension Is this a current diagnosis for this admission?: Yes Plan: 10/01/2018 patient blood pressure today 172/81 she has history of hypertension patient is on valsartan/hydrochlorothiazide 80, 12.5 mg p.o. daily I am going to start on hydralazine 10 mg IV every 6 as needed for blood pressure more than 150. Patient is also tachycardic. I put her on Lopressor 5 mg IV every 6 as needed for heart rate more than 120. Patient is on IV fluids at 125 cc/h I decreased it to 50 cc/h today. 10/02/2018-pressure today is 141/55 pulse rate is 110 she was started on hydralazine 10 mg IV every 6 as needed for blood pressure of more than 150. Plan is to start her on valsartan/hydrochlorothiazide via NG tube. 10/03/2018-patient's blood pressure today is 128/53 with T-max of 101.7. Is on IV fluids normal saline 50 cc/h. Started her on valsartan/hydrochlorothiazide via NG tube yesterday. And is to continue the present management. (3) Partial small bowel obstruction Is this a current diagnosis for this admission?: Yes Plan: 10/01/2018--patient was admitted for partial small bowel obstruction status post surgery this is postop day 5. She underwent exploratory laparotomy with lysis o f adhesions and bowel resection. The surgical site is clean. Patient is still have NG tube a lot of drainage from the NG tube she has a small amount of movement. The bowel sounds are sluggish. surgical drain present with clear drainage.. 10/02/2018-patient was admitted with small bowel obstruction status post surgery day 6 today. Still has NG tube a lot of drainage from the NG tube, foul-smell ing bowel stools darkish colored drainage from the surgical wound. Started on Invanz, requested to send the stool for C. difficile and was started on Flagyl 500 mg IV daily. ID consult was requested. CT chest without contrast was requested. 10/03/2018-patient admitted with small bowel obstruction status post surgery exploratory laparotomy lysis of the adhesions and bowel resection. We did sept ic workup lactic acid level is 1.5 and 1.3 yesterday the surgical site shows purulent drainage today. Bowel sounds are very very minimal. I spoke to Dr. Lovelace he requested me to do the CT abdomen pelvis without contrast today. He is going to see the patient today. (4) Anemia Qualifiers: Anemia type: iron deficiency Is this a current diagnosis for this admission?: Yes Plan: 10/01/2018-patient hemoglobin is 11.6 on 09/27/2018 dropped to 8.5 after blood transfusions improved to 9.4 yesterday I am going to repeat the CBC tomorrow. 10/02/2018-hemoglobin is stable 8.5 she required blood transfusions during the hospital stay couple of days ago her hemoglobin dropped to 8.5. Dr. Curran professor of theater on board. 06/2019-hemoglobin is 8.9 stable hematology saw the patient patient has blood transfusion during this admission. (5) Sepsis Is this a current diagnosis for this admission?: Yes Plan: 10/03/2018-patient has a spiking fever of 101.7. And the sputum culture showing gram-positive cocci. She was started on Invanz and Flagyl. C. difficile came back negative. His chest CT shows no evidence of pneumonia. CT abdomen pelvis without contrast was requested. Purulent purulent drainage from the surgical wound site. Dr. Lovelace is going to come and see the patient today. Wound culture was requested. - Time Time Spent with patient: 25-34 minutes Medications reviewed and adjusted accordingly: Yes
--- NOTE | 2018-10-03 09:05 | PDOC PROGRESS REPORT ---
Subjective Progress Note for:: 10/03/18 Subjective:: pt intubated, sedated Reason For Visit: SMALL BOWEL OBSTRUCTION post op day 7 s/p exploratory laparotomy and extensive lysis of adhesions with small bowel resection Physical Exam Vital Signs: Temp Pulse Resp BP Pulse Ox 99.9 F 88 25 H 128/53 H 100 10/03/18 06:00 10/03/18 05:49 10/03/18 06:00 10/03/18 05:51 10/03/18 05:51 Intake & Output 10/02/18 10/03/18 10/04/18 06:59 06:59 06:59 Intake Total 3281 2196 Output Total 4175 3810 420 Balance -894 -1614 -420 Weight 53.8 kg 52 kg General appearance: PRESENT: other - remains intubated, has some withdrawl with stimuli still on propofol drip GI/Abdominal exam: PRESENT: other - wound opened yesteday now with drainage of bilous fluid controlled iwth dressing changes. Results Laboratory Results: 10/03/18 05:00 10/03/18 05:00 10/02/18 10/02/18 10/03/18 18:30 23:30 05:00 WBC RBC Hgb Hct MCV MCH MCHC RDW Plt Count Seg Neutrophils % Lymphocytes % Monocytes % Eosinophils % Basophils % Absolute Neutrophils Absolute Lymphocytes Absolute Monocytes Absolute Eosinophils Absolute Basophils Carbonic Acid 0.95 L HCO3/H2CO3 Ratio 24:1 ABG pH 7.48 H ABG pCO2 31.4 L ABG pO2 95.3 ABG HCO3 22.8 ABG O2 Saturation 97.8 ABG Base Excess 0.2 FiO2 25% Sodium Potassium Chloride Carbon Dioxide Anion Gap BUN Creatinine Est GFR ( Amer) Est GFR (Non-Af Amer) Glucose Lactic Acid 1.5 1.3 Calcium Phosphorus Magnesium Total Bilirubin AST ALT Alkaline Phosphatase Total Protein Albumin Prealbumin 10/03/18 10/03/18 05:00 05:00 WBC 12.8 H RBC 3.25 L Hgb 8.9 L Hct 26.7 L MCV 82 MCH 27.4 MCHC 33.3 RDW 17.0 H Plt Count 383 Seg Neutrophils % Not Reportable Lymphocytes % Not Reportable Monocytes % Not Reportable Eosinophils % Not Reportable Basophils % Not Reportable Absolute Neutrophils Not Reportable Absolute Lymphocytes Not Reportable Absolute Monocytes Not Reportable Absolute Eosinophils Not Reportable Absolute Basophils Not Reportable Carbonic Acid HCO3/H2CO3 Ratio ABG pH ABG pCO2 ABG pO2 ABG HCO3 ABG O2 Saturation ABG Base Excess FiO2 Sodium 139.5 Potassium 3.1 L Chloride 107 Carbon Dioxide 24 Anion Gap 9 BUN 13 Creatinine 0.40 L Est GFR ( Amer) > 60 Est GFR (Non-Af Amer) > 60 Glucose 195 H Lactic Acid Calcium 7.5 L Phosphorus 3.8 Magnesium 2.4 H Total Bilirubin 1.2 AST 34 ALT 60 H Alkaline Phosphatase 66 Total Protein 4.1 L Albumin 2.0 L Prealbumin 7.0 L 10/02/18 04:27 NT-Pro-B Natriuret Pep 379 Impressions: Abdomen/Pelvis CT 09/25/18 00:00 IMPRESSION: Ileus or partial small bowel obstruction status post multiple bowel surgeries. No high-grade obstruction. Abdomen X-Ray 09/25/18 06:29 IMPRESSION: Difficult to exclude developing small bowel obstruction. Recommend CT. KUB X-Ray 09/25/18 12:03 IMPRESSION: NG tube appears to be in satisfactory position. Acute Abdomen Series 09/26/18 07:00 IMPRESSION: Improvement in the dilated loops of small bowel with few residual gas fluid levels within the pelvis. No evidence of perforation. Chest CT 10/02/18 00:00 IMPRESSION: MODERATE BILATERAL PLEURAL EFFUSIONS WITH MILD BASILAR ATELECTASIS. Assessment & Plan - Diagnosis (1) Partial small bowel obstruction Is this a current diagnosis for this admission?: Yes - Plan Summary Plan Summary: pt is s/p extensive lysis of adhesions with small bowel resection. spoke with ID physician this am concerned about sepsis due to spiking temps wbc remains stable lactate sl elevated wound now draining bile tinged fluid suspect enteric leak. plan will obtain ct now eval for any fluid collection if present and accessible will ask for ir drainage.
--- NOTE | 2018-10-03 09:15 | RADIOLOGY REPORT (SQ) ---
EXAM DESCRIPTION: CHEST SINGLE VIEW COMPLETED DATE/TIME: 10/03/2018 6:29 am REASON FOR STUDY: resp failure COMPARISON: 10/02/2018 NUMBER OF VIEWS: One view. TECHNIQUE: Single frontal radiographic image of the chest acquired. LIMITATIONS: None. FINDINGS: LUNGS AND PLEURA: Improved aeration left lower lobe. Right lung is clear. No pneumothora x. MEDIASTINUM AND HEART: Stable heart size and mediastinal structures. SUPPORT DEVICES: Appropriate location without change. BONY STRUCTURES: No acute findings. HARDWARE: None. OTHER: No other significant finding. IMPRESSION: Improving pneumonia. No pneumothorax. Reading location - IP/workstation name: [email or web address]
--- NOTE | 2018-10-03 10:16 | RADIOLOGY REPORT (SQ) ---
EXAM DESCRIPTION: CT ABD/PELVIS NO ORAL OR IV COMPLETED DATE/TIME: 10/03/2018 10:01 am REASON FOR STUDY: post op COMPARISON: 09/25/2018 TECHNIQUE: CT scan of the abdomen and pelvis performed without intravenous or oral contrast. Images reviewed with lung, soft tissue, and bone windows. Reconstructed coronal and sagittal MPR images revi ewed. All images stored on PACS. All CT scanners at this facility use dose modulation, iterative reconstruction, and/or weight based d osing when appropriate to reduce radiation dose to as low as reasonably achievable (ALARA). [facility]: Dose Right [facility]: CareDose [facility]: Dose Right [facility]: Teradose 4D [facility]: Smart Macoscope RADIATION DOSE: CT Rad equipment meets quality standard of care and radiation dose reduction techniq ues were employed. CTDIvol: 5.4 mGy. DLP: 283 mGy-cm.mGy. LIMITATIONS: No contrast. FINDINGS: LOWER CHEST: Small pleural effusions and associated atelectasis. NON-CONTRASTED LIVER, SPLEEN, ADRENALS: Evaluation limited by lack of IV contrast. No identified sign ificant masses. PANCREAS: No masses. No peripancreatic inflammatory changes. GALLBLADDER: Surgically absent. RIGHT KIDNEY AND URETER: No suspicious masses. Assessment limited by lack of IV contrast. No signif icant calcifications. No hydronephrosis or hydroureter. LEFT KIDNEY AND URETER: No suspicious masses. Assessment limited by lack of IV contrast. No signifi cant calcifications. No hydronephrosis or hydroureter. AORTA AND RETROPERITONEUM: No aneurysm. BOWEL AND PERITONEAL CAVITY: There has been interval bowel resection. Nasogastric tube in the stomac h. Pneumoperitoneum. Debris containing gas within open midline skin incision. No obvious abscess. Multiple anastomosis. No obvious obstruction. APPENDIX: Surgically absent. PELVIS, BLADDER, AND ABDOMINAL WALL:Surgical drain in the pelvis from left lower quadrant anterior ap proach. Tyler catheter in urinary bladder. BONES: Nothing acute. OTHER: No other significant finding. IMPRESSION: Pneumoperitoneum with gas containing debris in the midline skin incision. Cannot exclud e bowel perforation. No obvious abscess. No obstruction. COMMENT: Quality ID # [id number]: Final reports with documentation of one or more dose reduction techniques (e.g., Automated exposure control, adjustment of the mA and/or kV according to patient size, use of iterative reconstruction technique) TECHNICAL DOCUMENTATION: JOB ID: [id number] [employer]- All Rights Reserved Reading location - IP/workstation name: [email or web address]
[2018-10-03] MEDS: METRONIDAZOLE 500 MG/NS RTU 500 MG/100 ML RTUPB IV SCH (10:54)
[2018-10-03] MEDS: HYDROCHLOROTHIAZIDE 25 MG TABLET PO SCH (10:55)
[2018-10-03] MEDS: VALSARTAN 80 MG TABLET PO SCH (10:56)
[2018-10-03] MEDS: ERTAPENEM SODIUM 1 GM in NORMAL SALINE 50 ML IV SCH (10:57)
[2018-10-03 11:23] LABS: PATH REVIEW PATHOLOGIST REVIEWED
--- NOTE | 2018-10-03 12:49 | PDOC PROGRESS REPORT ---
Subjective Progress Note for:: 10/03/18 Subjective:: Patient remains sedated on ventilator. Family currently not at bedside. Nurses report that they will try again today to extubate, but she has had very foul smelling discharge from the wound. Surgery is aware of this problem. She was started on IV antibiotics and cultures are pending. Reason For Visit: SMALL BOWEL OBSTRUCTION Physical Exam Vital Signs: Temp Pulse Resp BP Pulse Ox 100.4 F 89 16 134/54 H 96 10/03/18 12:00 10/03/18 11:59 10/03/18 12:00 10/03/18 11:59 10/03/18 12:25 Intake & Output 10/02/18 10/03/18 10/04/18 06:59 06:59 06:59 Intake Total 3281 2346 Output Total 4175 3810 895 Balance -894 -1464 -895 Weight 53.8 kg 52 kg General appearance: PRESENT: well-developed, well-nourished Head exam: PRESENT: normocephalic Respiratory exam: PRESENT: clear to auscultation mar, unlabored Cardiovascular exam: PRESENT: RRR GI/Abdominal exam: PRESENT: other - Dressings over entire abdomen. Extremities exam: ABSENT: pedal edema Neurological exam: PRESENT: other - Sedated on vetilator. Skin exam: PRESENT: cyanosis - Feet. Results Laboratory Results: 10/03/18 05:00 10/03/18 05:00 10/02/18 10/02/18 10/03/18 18:30 23:30 05:00 WBC RBC Hgb Hct MCV MCH MCHC RDW Plt Count Seg Neutrophils % Lymphocytes % Monocytes % Eosinophils % Basophils % Absolute Neutrophils Absolute Lymphocytes Absolute Monocytes Absolute Eosinophils Absolute Basophils Carbonic Acid 0.95 L HCO3/H2CO3 Ratio 24:1 ABG pH 7.48 H ABG pCO2 31.4 L ABG pO2 95.3 ABG HCO3 22.8 ABG O2 Saturation 97.8 ABG Base Excess 0.2 FiO2 25% Sodium Potassium Chloride Carbon Dioxide Anion Gap BUN Creatinine Est GFR ( Amer) Est GFR (Non-Af Amer) Glucose Lactic Acid 1.5 1.3 Calcium Phosphorus Magnesium Total Bilirubin AST ALT Alkaline Phosphatase Total Protein Albumin Prealbumin 10/03/18 10/03/18 05:00 05:00 WBC 12.8 H RBC 3.25 L Hgb 8.9 L Hct 26.7 L MCV 82 MCH 27.4 MCHC 33.3 RDW 17.0 H Plt Count 383 Seg Neutrophils % Not Reportable Lymphocytes % Not Reportable Monocytes % Not Reportable Eosinophils % Not Reportable Basophils % Not Reportable Absolute Neutrophils Not Reportable Absolute Lymphocytes Not Reportable Absolute Monocytes Not Reportable Absolute Eosinophils Not Reportable Absolute Basophils Not Reportable Carbonic Acid HCO3/H2CO3 Ratio ABG pH ABG pCO2 ABG pO2 ABG HCO3 ABG O2 Saturation ABG Base Excess FiO2 Sodium 139.5 Potassium 3.1 L Chloride 107 Carbon Dioxide 24 Anion Gap 9 BUN 13 Creatinine 0.40 L Est GFR ( Amer) > 60 Est GFR (Non-Af Amer) > 60 Glucose 195 H Lactic Acid Calcium 7.5 L Phosphorus 3.8 Magnesium 2.4 H Total Bilirubin 1.2 AST 34 ALT 60 H Alkaline Phosphatase 66 Total Protein 4.1 L Albumin 2.0 L Prealbumin 7.0 L 10/01/18 10:10 Tracheal Aspirate Gram Stain - Final 10/01/18 10:10 Tracheal Aspirate Sputum Culture - Final Staphylococcus Aureus Normal Viviana Absent 10/02/18 04:27 NT-Pro-B Natriuret Pep 379 Impressions: Abdomen X-Ray 09/25/18 06:29 IMPRESSION: Difficult to exclude developing small bowel obstruction. Recommend CT. KUB X-Ray 09/25/18 12:03 IMPRESSION: NG tube appears to be in satisfactory position. Acute Abdomen Series 09/26/18 07:00 IMPRESSION: Improvement in the dilated loops of small bowel with few residual gas fluid levels within the pelvis. No evidence of perforation. Chest CT 10/02/18 00:00 IMPRESSION: MODERATE BILATERAL PLEURAL EFFUSIONS WITH MILD BASILAR ATELECTASIS. Abdomen/Pelvis CT 10/03/18 00:00 IMPRESSION: Pneumoperitoneum with gas containing debris in the midline skin incision. Cannot exclude bowel perforation. No obvious abscess. No obstruction. Chest X-Ray 10/03/18 06:00 IMPRESSION: Improving pneumonia. No pneumothorax. Assessment & Plan - Diagnosis (1) Partial small bowel obstruction Is this a current diagnosis for this admission?: Yes Plan: s/p surgery. Surgeons continue to follow. I spoke with Dr. Borrero about her today. (2) UTI (urinary tract infection) Qualifiers: Urinary tract infection type: site unspecified Hematuria presence: without hematuria Qualified Code(s): N39.0 - Urinary tract infection, site not specified Is this a current diagnosis for this admission?: Yes (3) Anemia Qualifiers: Anemia type: iron deficiency Is this a current diagnosis for this admission?: Yes Plan: She has required blood transfusions periodically. Will continue as indicated. I will also check PT/PTT/ Fibrinogen due to the concern for sepsis/DIC. However, her BP appears stable currently. - Plan Summary Plan Summary: Please feel free to call with any questions or concerns. Continue Electrolyte protocol and TPN.
[2018-10-03 15:09] LABS: INTERNATIONAL RATION (INR) 1.04; PROTHROMBIN TIME 14.2 SEC (11.4-15.4)
[2018-10-03 15:43] LABS: FIBRINOGEN 1129 mg/dL (209-497)
--- NOTE | 2018-10-03 15:52 | Progress Note ---
Provider Note Provider Note: ID Consult Note Asked by Dr Duran to review patient's chart. Pt not seen or examined. Reviewed VS, imaging reports, provider reports, labs. Ms. Cai is a 73 year old woman with PMH including prior surgeries for colon cancer who presented on 09/25/18 with 2 day hx of increasing abdominal pain, bloating, N&V due to small bowel obstruction that failed initial nonoperative management. She required exploratory laparotomy, Bhumika and small bowel resection on 09/27/18. She had a central line placed. She has remained intubated. Over the past 3 days, pt has had some fevers up to 101-102 F. Blood cultures from 10/02 have no growth x 24h. Tracheal aspirate from 10/01 has MSSA and no normal rocael. CT chest on 10/02 showed moderate b/l pleural effusions and mild parenchymal densities in the posterior lung bases suggestive of mild basilar atelectasis. CT abdomen/pelvis with no oral or IV contrast on 10/03 did not show any obvious abscess. Midline wound had several tashi removed on 10/02 and a small amount of purulent drainage encountered but no evidence of fistula. It has been noted to be draining "bile tinged fluid." Ertapenem and Flagyl were started on 10/02. Impression/Recommendations Fever in a post-operative patient; suspected wound infection based on fever, leukocytosis, purulent drainage from wound noted first on 10/02. - Exploration and debridement of wound per Surgery. - Based on systemic manifestations and comorbidities, antibiotic therapy is reasonable. Empiric ertapenem/Flagyl is very broad and would address gut rocael and skin pathogens with exception of MRSA, but pt patient has not been noted to have colonization or infection with MRSA. Can continue ertapenem/Flagyl empirically for now and de-escalate when more information available. Mj Grant MD [facility] Infectious Diseases pager [phone]
[2018-10-03] MEDS: AMINO ACIDS 5%/D25W 1,000 ML IV PRN (17:54)
[2018-10-03] MEDS: INSULIN REG, HUMAN 100 UNIT/ML 3 ML VIAL (PYX) SUBCUT PRN (18:36)
--- NOTE | 2018-10-03 19:02 | PDOC PROGRESS REPORT ---
Subjective Progress Note for:: 10/03/18 Subjective:: Asked by nursing staff to evaluate patient with recent findings of mottling of lower extremities and diminished urine output with 45 cc over the past 2 hours. Intubated and sedated. Reason For Visit: SMALL BOWEL OBSTRUCTION Physical Exam Vital Signs: Temp Pulse Resp BP Pulse Ox 99.7 F 80 18 118/45 L 97 10/03/18 18:00 10/03/18 17:12 10/03/18 18:00 10/03/18 17:52 10/03/18 18:00 Intake & Output 10/02/18 10/03/18 10/04/18 06:59 06:59 06:59 Intake Total 3281 2346 1081 Output Total 4174 3810 1165 Balance -894 -1464 -84 Weight 53.8 kg 52 kg Respiratory exam: PRESENT: clear to auscultation mar Cardiovascular exam: PRESENT: RRR GI/Abdominal exam: PRESENT: other - Distended, unable to determine tenderness but lower abdomen feels tight. There is bilious output via lower abdominal wound. According to nursing staff there was earlier feculent material per wound. Extremities exam: PRESENT: other - Extremities are cool with mottling of bilateral feet but with palpable pedal pulses. Results Laboratory Results: 10/03/18 05:00 10/03/18 05:00 10/02/18 10/02/18 10/03/18 18:30 23:30 05:00 WBC RBC Hgb Hct MCV MCH MCHC RDW Plt Count Seg Neutrophils % Lymphocytes % Monocytes % Eosinophils % Basophils % Absolute Neutrophils Absolute Lymphocytes Absolute Monocytes Absolute Eosinophils Absolute Basophils Carbonic Acid 0.95 L HCO3/H2CO3 Ratio 24:1 ABG pH 7.48 H ABG pCO2 31.4 L ABG pO2 95.3 ABG HCO3 22.8 ABG O2 Saturation 97.8 ABG Base Excess 0.2 FiO2 25% Sodium Potassium Chloride Carbon Dioxide Anion Gap BUN Creatinine Est GFR ( Amer) Est GFR (Non-Af Amer) Glucose Lactic Acid 1.5 1.3 Calcium Phosphorus Magnesium Total Bilirubin AST ALT Alkaline Phosphatase Total Protein Albumin Prealbumin 10/03/18 10/03/18 05:00 05:00 WBC 12.8 H RBC 3.25 L Hgb 8.9 L Hct 26.7 L MCV 82 MCH 27.4 MCHC 33.3 RDW 17.0 H Plt Count 383 Seg Neutrophils % Not Reportable Lymphocytes % Not Reportable Monocytes % Not Reportable Eosinophils % Not Reportable Basophils % Not Reportable Absolute Neutrophils Not Reportable Absolute Lymphocytes Not Reportable Absolute Monocytes Not Reportable Absolute Eosinophils Not Reportable Absolute Basophils Not Reportable Carbonic Acid HCO3/H2CO3 Ratio ABG pH ABG pCO2 ABG pO2 ABG HCO3 ABG O2 Saturation ABG Base Excess FiO2 Sodium 139.5 Potassium 3.1 L Chloride 107 Carbon Dioxide 24 Anion Gap 9 BUN 13 Creatinine 0.40 L Est GFR ( Amer) > 60 Est GFR (Non-Af Amer) > 60 Glucose 195 H Lactic Acid Calcium 7.5 L Phosphorus 3.8 Magnesium 2.4 H Total Bilirubin 1.2 AST 34 ALT 60 H Alkaline Phosphatase 66 Total Protein 4.1 L Albumin 2.0 L Prealbumin 7.0 L 10/01/18 10:10 Tracheal Aspirate Gram Stain - Final 10/01/18 10:10 Tracheal Aspirate Sputum Culture - Final Staphylococcus Aureus Normal Viviana Absent 10/02/18 04:27 NT-Pro-B Natriuret Pep 379 Impressions: Abdomen X-Ray 09/25/18 06:29 IMPRESSION: Difficult to exclude developing small bowel obstruction. Recommend CT. KUB X-Ray 09/25/18 12:03 IMPRESSION: NG tube appears to be in satisfactory position. Acute Abdomen Series 09/26/18 07:00 IMPRESSION: Improvement in the dilated loops of small bowel with few residual gas fluid levels within the pelvis. No evidence of perforation. Chest CT 10/02/18 00:00 IMPRESSION: MODERATE BILATERAL PLEURAL EFFUSIONS WITH MILD BASILAR ATELECTASIS. Abdomen/Pelvis CT 10/03/18 00:00 IMPRESSION: Pneumoperitoneum with gas containing debris in the midline skin incision. Cannot exclude bowel perforation. No obvious abscess. No obstruction. Chest X-Ray 10/03/18 06:00 IMPRESSION: Improving pneumonia. No pneumothorax. Assessment & Plan - Diagnosis (1) Bowel perforation Is this a current diagnosis for this admission?: Yes Plan: Status post recent exploratory laparotomy with small bowel resection. Patient with enteric contents draining via her wound. She is now demonstrating some mottling of her feet and diminished urine output although adequate. Patient is not tachycardic nor hypotensive however I am concerned that she is demonstrating early signs of sepsis. Will await laboratory studies. I have had a long discussion with the patient's family concerning her progress and my concerns that things may be turning for the worse. I have given them the option of taking her back to surgery now versus continued supportive care and plan to take her immediately back to surgery if she has any further worsening. In the meantime will give her an IV fluid bolus. And await laboratory testing. I have discussed the case with Dr. Lovelace who agrees that if she does become worse she would benefit from a reoperation.
[2018-10-03] MEDS ORDERED: NORMAL SALINE 500 ML IV ONE (19:30)
[2018-10-03 19:33] LABS: HEMATOCRIT 26.8 % (36.0-47.0); MEAN CORPUSCULAR HGB CONC 33.5 g/dL (32.0-36.0); MEAN CORPUSCULAR VOLUME 83 fl (80-97); PLATELET COUNT 447 10^3/uL (150-450); RED BLOOD COUNT 3.21 10^6/uL (3.72-5.28); WHITE BLOOD COUNT 12.7 10^3/uL (4.0-10.5)
[2018-10-03] MEDS: NORMAL SALINE 1000 ML 1,000 ML IV PRN (19:44)
[2018-10-03 19:52] LABS: ABSOLUTE LYMPHOCYTES# (MANUAL) 0.8 10^3/uL (0.5-4.7); ABSOLUTE MONOCYTES # (MANUAL) 0.5 10^3/uL (0.1-1.4); ABSOLUTE NEUTROPHILS# (MANUAL) 11.4 10^3/uL (1.7-8.2); BAND NEUTROPHILS % (MANUAL) 8 % (3-5); BASOPHILS % (MANUAL) 0 % (0-2); EOSINOPHILS % (MANUAL) 0 % (0-6); LYMPHOCYTES % (MANUAL) 6 % (13-45); MONOCYTES % (MANUAL) 4 % (3-13); SEGMENTED NEUTROPHILS % (MAN) 82 % (42-78); TOTAL CELLS COUNTED 100
[2018-10-03 19:53] LABS: ANISOCYTOSIS 1+; PLATELET COMMENT ADEQUATE; TOXIC GRANULATION SLIGHT
[2018-10-03 19:57] LABS: ALANINE AMINOTRANSFERASE 53 U/L (9-52); ALBUMIN 2.2 g/dL (3.5-5.0); ALKALINE PHOSPHATASE 63 U/L (38-126); ANION GAP 8 (5-19); ASPARTATE AMINO TRANSFERASE 27 U/L (14-36); BILIRUBIN,DIRECT 1.3 mg/dL (0.0-0.4); BILIRUBIN,TOTAL 1.8 mg/dL (0.2-1.3); BLOOD UREA NITROGEN 17 mg/dL (7-20); CALCIUM 7.6 mg/dL (8.4-10.2); CARBON DIOXIDE 25 mmol/L (22-30); CHLORIDE 108 mmol/L (98-107); GLUCOSE 176 mg/dL (75-110); POTASSIUM 3.2 mmol/L (3.6-5.0); SODIUM 140.6 mmol/L (137-145); TOTAL PROTEIN 4.5 g/dL (6.3-8.2)
[2018-10-03] MEDS: POTASSIUM CHLORIDE 20 MEQ/50 ML RTU IV SCH ×2 (21:53→23:14)
--- NOTE | 2018-10-03 22:13 | PDOC PROGRESS REPORT ---
Subjective Progress Note for:: 10/03/18 Subjective:: Intubated and sedated. Reason For Visit: SMALL BOWEL OBSTRUCTION Physical Exam Vital Signs: Temp Pulse Resp BP Pulse Ox 100.8 F H 80 20 103/43 L 100 10/03/18 21:15 10/03/18 17:12 10/03/18 21:15 10/03/18 21:15 10/03/18 21:15 Intake & Output 10/02/18 10/03/18 10/04/18 06:59 06:59 06:59 Intake Total 3281 2346 2070 Output Total 4177 7870 1390 Balance -894 1466 680 Weight 53.8 kg 52 kg General appearance: PRESENT: no acute distress Respiratory exam: PRESENT: clear to auscultation mar Cardiovascular exam: PRESENT: RRR Extremities exam: PRESENT: other - Feet are still cool but the mottled appearance has markedly improved. Results Laboratory Results: 10/03/18 19:20 10/03/18 19:20 10/02/18 10/03/18 10/03/18 23:30 05:00 05:00 WBC 12.8 H RBC 3.25 L Hgb 8.9 L Hct 26.7 L MCV 82 MCH 27.4 MCHC 33.3 RDW 17.0 H Plt Count 383 Seg Neutrophils % Not Reportable Lymphocytes % Not Reportable Monocytes % Not Reportable Eosinophils % Not Reportable Basophils % Not Reportable Absolute Neutrophils Not Reportable Absolute Lymphocytes Not Reportable Absolute Monocytes Not Reportable Absolute Eosinophils Not Reportable Absolute Basophils Not Reportable Carbonic Acid 0.95 L HCO3/H2CO3 Ratio 24:1 ABG pH 7.48 H ABG pCO2 31.4 L ABG pO2 95.3 ABG HCO3 22.8 ABG O2 Saturation 97.8 ABG Base Excess 0.2 FiO2 25% Sodium Potassium Chloride Carbon Dioxide Anion Gap BUN Creatinine Est GFR ( Amer) Est GFR (Non-Af Amer) Glucose Lactic Acid 1.3 Calcium Phosphorus Magnesium Total Bilirubin AST ALT Alkaline Phosphatase Total Protein Albumin Prealbumin 10/03/18 10/03/18 10/03/18 05:00 19:20 19:20 WBC 12.7 H RBC 3.21 L Hgb 9.0 L Hct 26.8 L MCV 83 MCH 28.0 MCHC 33.5 RDW 17.0 H Plt Count 447 Seg Neutrophils % Not Reportable Lymphocytes % Not Reportable Monocytes % Not Reportable Eosinophils % Not Reportable Basophils % Not Reportable Absolute Neutrophils Not Reportable Absolute Lymphocytes Not Reportable Absolute Monocytes Not Reportable Absolute Eosinophils Not Reportable Absolute Basophils Not Reportable Carbonic Acid HCO3/H2CO3 Ratio ABG pH ABG pCO2 ABG pO2 ABG HCO3 ABG O2 Saturation ABG Base Excess FiO2 Sodium 139.5 Potassium 3.1 L Chloride 107 Carbon Dioxide 24 Anion Gap 9 BUN 13 Creatinine 0.40 L Est GFR ( Amer) > 60 Est GFR (Non-Af Amer) > 60 Glucose 195 H Lactic Acid 1.8 Calcium 7.5 L Phosphorus 3.8 Magnesium 2.4 H Total Bilirubin 1.2 AST 34 ALT 60 H Alkaline Phosphatase 66 Total Protein 4.1 L Albumin 2.0 L Prealbumin 7.0 L 10/03/18 19:20 WBC RBC Hgb Hct MCV MCH MCHC RDW Plt Count Seg Neutrophils % Lymphocytes % Monocytes % Eosinophils % Basophils % Absolute Neutrophils Absolute Lymphocytes Absolute Monocytes Absolute Eosinophils Absolute Basophils Carbonic Acid HCO3/H2CO3 Ratio ABG pH ABG pCO2 ABG pO2 ABG HCO3 ABG O2 Saturation ABG Base Excess FiO2 Sodium 140.6 Potassium 3.2 L Chloride 108 H Carbon Dioxide 25 Anion Gap 8 BUN 17 Creatinine 0.43 L Est GFR ( Amer) > 60 Est GFR (Non-Af Amer) > 60 Glucose 176 H Lactic Acid Calcium 7.6 L Phosphorus Magnesium Total Bilirubin 1.8 H AST 27 ALT 53 H Alkaline Phosphatase 63 Total Protein 4.5 L Albumin 2.2 L Prealbumin 10/01/18 10:10 Tracheal Aspirate Gram Stain - Final 10/01/18 10:10 Tracheal Aspirate Sputum Culture - Final Staphylococcus Aureus Normal Viviana Absent 10/02/18 04:27 NT-Pro-B Natriuret Pep 379 Impressions: Abdomen X-Ray 09/25/18 06:29 IMPRESSION: Difficult to exclude developing small bowel obstruction. Recommend CT. KUB X-Ray 09/25/18 12:03 IMPRESSION: NG tube appears to be in satisfactory position. Acute Abdomen Series 09/26/18 07:00 IMPRESSION: Improvement in the dilated loops of small bowel with few residual gas fluid levels within the pelvis. No evidence of perforation. Chest CT 10/02/18 00:00 IMPRESSION: MODERATE BILATERAL PLEURAL EFFUSIONS WITH MILD BASILAR ATELECTASIS. Abdomen/Pelvis CT 10/03/18 00:00 IMPRESSION: Pneumoperitoneum with gas containing debris in the midline skin incision. Cannot exclude bowel perforation. No obvious abscess. No obstruction. Chest X-Ray 10/03/18 06:00 IMPRESSION: Improving pneumonia. No pneumothorax. Assessment & Plan - Diagnosis (1) Bowel perforation Is this a current diagnosis for this admission?: Yes Plan: Patient appears better with a good response to fluid bolus with better urine output and less mottled appearance to her feet. Will increase her maintenance IV fluid. No Lasix. 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 Will continue conservative management.
[2018-10-04] MEDS: LEVALBUTEROL HCL NEB 1.25 MG/3 ML AMPUL NEB SCH ×2 (00:01→08:41)
[2018-10-04] MEDS: PROPOFOL 1,000 MG/100 ML INFUS..BTL IV PRN ×3 (00:40→12:05)
[2018-10-04] MEDS: NORMAL SALINE 1000 ML 1,000 ML IV PRN (03:15)
[2018-10-04 04:29] LABS: HEMATOCRIT 28.4 % (36.0-47.0); HEMOGLOBIN 9.2 g/dL (12.0-15.5); MEAN CORPUSCULAR HEMOGLOBIN 27.3 pg (27.0-33.4); MEAN CORPUSCULAR HGB CONC 32.6 g/dL (32.0-36.0); MEAN CORPUSCULAR VOLUME 84 fl (80-97); PLATELET COUNT 448 10^3/uL (150-450); RED BLOOD COUNT 3.39 10^6/uL (3.72-5.28); RED CELL DISTRIBUTION WIDTH 17.3 % (11.5-14.0); WHITE BLOOD COUNT 14.5 10^3/uL (4.0-10.5)
[2018-10-04 04:44] LABS: ALANINE AMINOTRANSFERASE 46 U/L (9-52); ALBUMIN 2.5 g/dL (3.5-5.0); ALKALINE PHOSPHATASE 75 U/L (38-126); ANION GAP 6 (5-19); ASPARTATE AMINO TRANSFERASE 30 U/L (14-36); BILIRUBIN,DIRECT 1.7 mg/dL (0.0-0.4); BILIRUBIN,TOTAL 2.4 mg/dL (0.2-1.3); BLOOD UREA NITROGEN 16 mg/dL (7-20); CALCIUM 7.8 mg/dL (8.4-10.2); CARBON DIOXIDE 24 mmol/L (22-30); CHLORIDE 110 mmol/L (98-107); GLUCOSE 195 mg/dL (75-110); PHOSPHORUS 3.1 mg/dL (2.5-4.5); POTASSIUM 3.7 mmol/L (3.6-5.0); SODIUM 139.6 mmol/L (137-145); TOTAL PROTEIN 5.3 g/dL (6.3-8.2)
[2018-10-04 04:55] LABS: ABSOLUTE LYMPHOCYTES# (MANUAL) 1.2 10^3/uL (0.5-4.7); ABSOLUTE MONOCYTES # (MANUAL) 0.7 10^3/uL (0.1-1.4); ABSOLUTE NEUTROPHILS# (MANUAL) 12.5 10^3/uL (1.7-8.2); BAND NEUTROPHILS % (MANUAL) 5 % (3-5); BASOPHILS % (MANUAL) 0 % (0-2); EOSINOPHILS % (MANUAL) 1 % (0-6); LYMPHOCYTES % (MANUAL) 7 % (13-45); METAMYELOCYTES % (MANUAL) 2 % (0); MONOCYTES % (MANUAL) 5 % (3-13); NUCLEATED RED BLOOD CELLS 1 /100 WBC (0); SEGMENTED NEUTROPHILS % (MAN) 78 % (42-78); TOTAL CELLS COUNTED 100
[2018-10-04 04:56] LABS: ANISOCYTOSIS 1+; POLYCHROMASIA 1+; SCHISTOCYTES SLIGHT; TOXIC GRANULATION 1+
[2018-10-04 04:57] LABS: MYELOCYTES % (MANUAL) 1 % (0); PLATELET CLUMPS PRESENT; PLATELET COMMENT ADEQUATE; PLATELET LARGE PRESENT
[2018-10-04 05:35] LABS: ARTERIAL BLOOD H2CO3 0.92 mmol/L (1.05-1.35); ARTERIAL BLOOD HCO3 21.3 mmol/L (20-24); ARTERIAL BLOOD O2 SATURATION 97.4 % (94-98); ARTERIAL BLOOD PCO2 30.6 mmHg (35-45); ARTERIAL BLOOD PH 7.46 (7.35-7.45); ARTERIAL BLOOD PO2 90.8 mmHg (80-100); ARTERIAL BLOOD TOTAL CO2 22.3 mmol/L (21-25)
[2018-10-04 05:36] LABS: ARTERIAL BLOOD FIO2 25%
--- NOTE | 2018-10-04 08:08 | RADIOLOGY REPORT (SQ) ---
EXAM DESCRIPTION: X-ray single view chest. CLINICAL HISTORY: 73 years Female, resp failure COMPARISON: Prior chest x-ray and chest CT performed on 10/02/2018 TECHNIQUE: Single portable view of the chest performed on 10/04/2018 at 5:59 AM FINDINGS: The lungs are well expanded. There is improving aeration in the left lung base when compared to the prior study suggesting improving atelectasis. The right lung is grossly clear. There is no evidence of a pneumothorax. The cardiac silhouette is normal in size and configuration. The mediastinal contours are normal. No acute osseous abnormality is identified. No focal soft tissue abnormalities are seen. Lines and tubes: The endotracheal tube, feeding tube and left IJ central venous catheter are grossly stable. IMPRESSION: 1. Improving aeration in the left lung base suggesting resolving atelectasis. 2. Grossly stable life support lines and tubes. 3. The right lung is grossly clear.
--- NOTE | 2018-10-04 08:10 | PDOC PROGRESS REPORT ---
Subjective Progress Note for:: 10/04/18 Subjective:: 10/02/2018-patient had a spiking fever T-max of 101.7 this morning. The chest x- ray done this morning indicates possible atelectasis in the right inferior compartment. Patient was started on Invanz from this morning. Patient is also having the foul-smelling stools several of them and I requested the nurse to send for C. difficile. Patient is on vent off the morphine ,tappeing off diprivan, pulse oxes 98% on 25% oxygen plan is to try to wean her off today. is at bedside and discussed the plan of care with him for more than 15 minutes and happy with the management so far. 10/03/2018 patient was still intubated pulse ox is 100% on 25% oxygen ABG shows improvement on p.o. to. But the patient is still febrile T-max is 101.7. Foul- smelling drainage of purulent drainage from the surgical wound. A call to are who is contract design agent and he advised me to call Dr. Lovelace. I spoke to Dr. Lovelace he was very nice to me he said please do the CAT scan of the abdomen and he will be on the way to examine the patient appreciate his concern. Talk to Dr. Damon he said not to extubate the patient today because there is a possibility of surgery today. CT abdomen and pelvis without contrast and wound cultures were requested. The pharmacy and requested consultation from Dr. Grant. C. difficile came back negative. Presently on Invanz and Flagyl. 10/04/2018 patient is still intubated condition is critical she is on SIMV rate of 12 PEEP of 5 and tidal volume of 450 saturating at 19 and percent on 25% oxygen. She is still febrile T-max is 101.5 WBC went up to 14,500 lactic acid is going up it was 2 today. Yesterday the surgeons came to look at the patient because of the mottling in the lower extremities as per Dr. Rolle notes it was improved and there is also concern about decreased urinary output yesterday and IV fluids are increased she is getting normal saline at 80 cc/h. Urine is still dark and concentrated this morning. Input is 2.7 L output is 1750 mL positive balance of more than 900 mL in the last 24 hours. Out of drainage from the surgical site. Patient is condition is critical I am afraid the things are turning to the was actually. Dr. Lovelace was here this morning to see the patient. At this moment we do not have any plans to extubate the patient. Reason For Visit: SMALL BOWEL OBSTRUCTION Physical Exam Vital Signs: Temp Pulse Resp BP Pulse Ox 100.9 F H 85 18 108/47 L 99 10/04/18 06:29 10/04/18 00:01 10/04/18 06:29 10/04/18 06:29 10/04/18 06:29 Intake & Output 10/03/18 10/04/18 10/05/18 06:59 06:59 06:59 Intake Total 2346 2742 Output Total 3810 1755 75 Balance -1464 987 -75 Weight 52 kg 50 kg General appearance: PRESENT: other - Patient is intubated under sedation. Head exam: PRESENT: atraumatic Eye exam: PRESENT: PERRLA Mouth exam: PRESENT: moist Neck exam: ABSENT: carotid bruit, JVD, lymphadenopathy, thyromegaly Respiratory exam: PRESENT: clear to auscultation mar. ABSENT: rales, rhonchi, wheezes Cardiovascular exam: PRESENT: tachycardia Pulses: PRESENT: other - To me left lower leg is colder than the right leg there is the bluish discoloration around the left great toe. Nurse contract design agent was notified. GI/Abdominal exam: PRESENT: other - Very very minimal bowel sounds. Bilious drainage from the surgical wound. PEG tube is in place. Catheter in place urinary back shows very concentrated urine. Extremities exam: PRESENT: other - Left foot is colder to touch and bluish discoloration of the great toe on the second toe. Neurological exam: PRESENT: other - And was intubated under sedation. Skin exam: PRESENT: other - I noticed a cyanosis around the great toe and second toe of the left foot. Results Laboratory Results: 10/04/18 04:12 10/04/18 04:12 10/03/18 10/03/18 10/03/18 19:20 19:20 19:20 WBC 12.7 H RBC 3.21 L Hgb 9.0 L Hct 26.8 L MCV 83 MCH 28.0 MCHC 33.5 RDW 17.0 H Plt Count 447 Seg Neutrophils % Not Reportable Lymphocytes % Not Reportable Monocytes % Not Reportable Eosinophils % Not Reportable Basophils % Not Reportable Absolute Neutrophils Not Reportable Absolute Lymphocytes Not Reportable Absolute Monocytes Not Reportable Absolute Eosinophils Not Reportable Absolute Basophils Not Reportable Carbonic Acid HCO3/H2CO3 Ratio ABG pH ABG pCO2 ABG pO2 ABG HCO3 ABG O2 Saturation ABG Base Excess FiO2 Sodium 140.6 Potassium 3.2 L Chloride 108 H Carbon Dioxide 25 Anion Gap 8 BUN 17 Creatinine 0.43 L Est GFR ( Amer) > 60 Est GFR (Non-Af Amer) > 60 Glucose 176 H Lactic Acid 1.8 Calcium 7.6 L Phosphorus Magnesium Total Bilirubin 1.8 H AST 27 ALT 53 H Alkaline Phosphatase 63 Total Protein 4.5 L Albumin 2.2 L 10/04/18 10/04/18 10/04/18 04:12 04:12 04:12 WBC 14.5 H RBC 3.39 L Hgb 9.2 L Hct 28.4 L MCV 84 MCH 27.3 MCHC 32.6 RDW 17.3 H Plt Count 448 Seg Neutrophils % Not Reportable Lymphocytes % Not Reportable Monocytes % Not Reportable Eosinophils % Not Reportable Basophils % Not Reportable Absolute Neutrophils Not Reportable Absolute Lymphocytes Not Reportable Absolute Monocytes Not Reportable Absolute Eosinophils Not Reportable Absolute Basophils Not Reportable Carbonic Acid HCO3/H2CO3 Ratio ABG pH ABG pCO2 ABG pO2 ABG HCO3 ABG O2 Saturation ABG Base Excess FiO2 Sodium 139.6 Potassium 3.7 Chloride 110 H Carbon Dioxide 24 Anion Gap 6 BUN 16 Creatinine 0.42 L Est GFR ( Amer) > 60 Est GFR (Non-Af Amer) > 60 Glucose 195 H Lactic Acid 2.0 Calcium 7.8 L Phosphorus 3.1 Magnesium 2.5 H Total Bilirubin 2.4 H AST 30 ALT 46 Alkaline Phosphatase 75 Total Protein 5.3 L Albumin 2.5 L 10/04/18 05:25 WBC RBC Hgb Hct MCV MCH MCHC RDW Plt Count Seg Neutrophils % Lymphocytes % Monocytes % Eosinophils % Basophils % Absolute Neutrophils Absolute Lymphocytes Absolute Monocytes Absolute Eosinophils Absolute Basophils Carbonic Acid 0.92 L HCO3/H2CO3 Ratio 23:1 ABG pH 7.46 H ABG pCO2 30.6 L ABG pO2 90.8 ABG HCO3 21.3 ABG O2 Saturation 97.4 ABG Base Excess -2.0 FiO2 25% Sodium Potassium Chloride Carbon Dioxide Anion Gap BUN Creatinine Est GFR ( Amer) Est GFR (Non-Af Amer) Glucose Lactic Acid Calcium Phosphorus Magnesium Total Bilirubin AST ALT Alkaline Phosphatase Total Protein Albumin 10/01/18 10:10 Tracheal Aspirate Gram Stain - Final 10/01/18 10:10 Tracheal Aspirate Sputum Culture - Final Staphylococcus Aureus Normal Viviana Absent 10/02/18 04:27 NT-Pro-B Natriuret Pep 379 Impressions: Abdomen X-Ray 09/25/18 06:29 IMPRESSION: Difficult to exclude developing small bowel obstruction. Recommend CT. KUB X-Ray 09/25/18 12:03 IMPRESSION: NG tube appears to be in satisfactory position. Acute Abdomen Series 09/26/18 07:00 IMPRESSION: Improvement in the dilated loops of small bowel with few residual gas fluid levels within the pelvis. No evidence of perforation. Chest CT 10/02/18 00:00 IMPRESSION: MODERATE BILATERAL PLEURAL EFFUSIONS WITH MILD BASILAR ATELECTASIS. Abdomen/Pelvis CT 10/03/18 00:00 IMPRESSION: Pneumoperitoneum with gas containing debris in the midline skin incision. Cannot exclude bowel perforation. No obvious abscess. No obstru ction. Assessment & Plan - Diagnosis (1) Respiratory failure Qualifiers: Chronicity: acute Is this a current diagnosis for this admission?: Yes Plan: 10/01/2018-patient is still intubated pulse ox is 96%. Planning to wean her off tomorrow. Pulmonary is on board. Sputum culture showing gram-positive cocci. Started on Invanz. X-ray shows left lower lobe airspace disease and patchy right basilar density. 10/02/2018-pulse ox is 96% on 25% oxygen. Patient is still on mechanical ventilation. Plan is to wean her off today. ABG done today on 25% oxygen pH is 7.48 PCO2 28 PO2 69.6 bicarb is 20.3. Hypoxia and hypercapnia resolving. Chest x-ray shows opacification in the right inferior lobe plan to do the CT chest without contrast today. Patient spiked a fever of 101.7, she was started on Invanz and requested for ID consult. sputum cultures shows gram-positive cocci and blood cultures were sent. 10/03/2017-patient still on ventilator pulse ox is 100% on 25% oxygen. ABG today shows pH of 7.48/PCO2 of 31.4/PO2 95/bicarb is 22.8. we are planning to hold off the extubation today. Because of the possibility of exploratory laparotomy today. CT chest was done for possibility of sepsis with pneumonia and it shows bilateral moderate pleural effusions. No specific evidence of pneumonia. Patient has T-max of 101.7 patient is on Invanz and Flagyl. 10/04/2018 chest x-ray done this morning shows no evidence of pneumonia in my opinion and pulse ox is 95% on 25% oxygen. She is still on mechanical ventilation with the same EF rate of 14 PEEP of 5 oxygen saturation of 25% and a tidal volume of 450. We do not have any plans to extubate the patient at this moment. (2) Hypertension Is this a current diagnosis for this admission?: Yes Plan: 10/01/2018 patient blood pressure today 172/81 she has history of hypertension patient is on valsartan/hydrochlorothiazide 80, 12.5 mg p.o. daily I am going to start on hydralazine 10 mg IV every 6 as needed for blood pressure more than 150. Patient is also tachycardic. I put her on Lopressor 5 mg IV every 6 as needed for heart rate more than 120. Patient is on IV fluids at 125 cc/h I decreased it to 50 cc/h today. 10/02/2018-pressure today is 141/55 pulse rate is 110 she was started on hydralazine 10 mg IV every 6 as needed for blood pressure of more than 150. Plan is to start her on valsartan/hydrochlorothiazide via NG tube. 10/03/2018-patient's blood pressure today is 128/53 with T-max of 101.7. Is on IV fluids normal saline 50 cc/h. Started her on valsartan/hydrochlorothiazide via NG tube yesterday. And is to continue the present management. 10/04/2018 patient is actually hypotensive this morning with blood pressure of 108/47 latest blood pressure is 117/70 valsartan was discontinued and patient is getting IV fluids normal saline at 80 cc/h positive fluid balance of 12/31/1986 in the last 24 hours. Drainage from the NG tube surgical wound. (3) Partial small bowel obstruction Is this a current diagnosis for this admission?: Yes Plan: 10/01/2018--patient was admitted for partial small bowel obstruction status post surgery this is postop day 5. She underwent exploratory laparotomy with lysis of adhesions and bowel resection. The surgical site is clean. Patient is still have NG tube a lot of drainage from the NG tube she has a small amount of movement. The bowel sounds are sluggish. surgical drain present with clear drainage.. 10/02/2018-patient was admitted with small bowel obstruction status post surgery day 6 today. Still has NG tube a lot of drainage from the NG tube, foul- smelling bowel stools darkish colored drainage from the surgical wound. Started on Invanz, requested to send the stool for C. difficile and was started on Flagyl 500 mg IV daily. ID consult was requested. CT chest without contrast was requested. 10/03/2018-patient admitted with small bowel obstruction status post surgery exploratory laparotomy lysis of the adhesions and bowel resection. We did septic workup lactic acid level is 1.5 and 1.3 yesterday the surgical site shows purulent drainage today. Bowel sounds are very very minimal. I spoke to Dr. Lovelace he requested me to do the CT abdomen pelvis without contrast today. He is going to see the patient today. 10/04/2018 patient has small bowel obstruction status post surgery lysis of the adhesions and bowel resection she has a prior surgeries for the similar problem before there is a lot of bile is drainage from the surgical site. Probably patient in early sepsis. With elevated lactic acid of 2.0 and patient is hypotensive this morning. She is on in Invanz and Flagyl. C. difficile was negative. Awaiting ID input. Culture shows a staph aureus. (4) Anemia Qualifiers: Anemia type: iron deficiency Is this a current diagnosis for this admission?: Yes Plan: 10/01/2018-patient hemoglobin is 11.6 on 09/27/2018 dropped to 8.5 after blood transfusions improved to 9.4 yesterday I am going to repeat the CBC tomorrow. 10/02/2018-hemoglobin is stable 8.5 she required blood transfusions during the hospital stay couple of days ago her hemoglobin dropped to 8.5. Dr. Curran advertising teacher on board. 10/03/2018-hemoglobin is 8.9 stable hematology saw the patient patient has blood transfusion during this admission. 10/04/2018 patient's hemoglobin is stable it was 9.2. Patient was seen by Dr. Curran. He got blood transfusion during the hospital stay. (5) Sepsis Is this a current diagnosis for this admission?: Yes Plan: 10/03/2018-patient has a spiking fever of 101.7. And the sputum culture showing gram-positive cocci. She was started on Invanz and Flagyl. C. difficile came back negative. His chest CT shows no evidence of pneumonia. CT abdomen pelvis without contrast was requested. Purulent purulent drainage from the surgical wound site. Dr. Lovelace is going to come and see the patient today. Wound culture was requested. 10/04/2018 CT abdomen and pelvis shows no free air this pneumoperitoneum around the surgical wound fascia is intact a lot of bilious drainage from the surgical wound site radiologist opinion is perforation cannot be excluded. Lactic acid is going to 2.0 patient is hypotensive she is presently on Invanz and Flagyl patient condition is critical. Awaiting the ID recommendations. The wound culture was done yesterday waiting for the report. - Time Time Spent with patient: 25-34 minutes Medications reviewed and adjusted accordingly: Yes
--- NOTE | 2018-10-04 08:34 | PDOC PROGRESS REPORT ---
Subjective Progress Note for:: 10/04/18 Reason For Visit: SMALL BOWEL OBSTRUCTION post op exam Physical Exam Vital Signs: Temp Pulse Resp BP Pulse Ox 100.8 F H 86 16 115/50 L 97 10/04/18 08:00 10/04/18 08:00 10/04/18 08:00 10/04/18 07:59 10/04/18 08:00 Intake & Output 10/03/18 10/04/18 10/05/18 06:59 06:59 06:59 Intake Total 2346 2742 Output Total 3810 1755 75 Balance -1464 987 -75 Weight 52 kg 50 kg General appearance: PRESENT: mild distress Respiratory exam: PRESENT: other - intubated, on propofol chest with bilat rhonci, GI/Abdominal exam: PRESENT: other - abd with midline draining fistula poorly captured passing stool via rectal tube, bilous Results Laboratory Results: 10/04/18 04:12 10/04/18 04:12 10/03/18 10/03/18 10/03/18 19:20 19:20 19:20 WBC 12.7 H RBC 3.21 L Hgb 9.0 L Hct 26.8 L MCV 83 MCH 28.0 MCHC 33.5 RDW 17.0 H Plt Count 447 Seg Neutrophils % Not Reportable Lymphocytes % Not Reportable Monocytes % Not Reportable Eosinophils % Not Reportable Basophils % Not Reportable Absolute Neutrophils Not Reportable Absolute Lymphocytes Not Reportable Absolute Monocytes Not Reportable Absolute Eosinophils Not Reportable Absolute Basophils Not Reportable Carbonic Acid HCO3/H2CO3 Ratio ABG pH ABG pCO2 ABG pO2 ABG HCO3 ABG O2 Saturation ABG Base Excess FiO2 Sodium 140.6 Potassium 3.2 L Chloride 108 H Carbon Dioxide 25 Anion Gap 8 BUN 17 Creatinine 0.43 L Est GFR ( Amer) > 60 Est GFR (Non-Af Amer) > 60 Glucose 176 H Lactic Acid 1.8 Calcium 7.6 L Phosphorus Magnesium Total Bilirubin 1.8 H AST 27 ALT 53 H Alkaline Phosphatase 63 Total Protein 4.5 L Albumin 2.2 L 10/04/18 10/04/18 10/04/18 04:12 04:12 04:12 WBC 14.5 H RBC 3.39 L Hgb 9.2 L Hct 28.4 L MCV 84 MCH 27.3 MCHC 32.6 RDW 17.3 H Plt Count 448 Seg Neutrophils % Not Reportable Lymphocytes % Not Reportable Monocytes % Not Reportable Eosinophils % Not Reportable Basophils % Not Reportable Absolute Neutrophils Not Reportable Absolute Lymphocytes Not Reportable Absolute Monocytes Not Reportable Absolute Eosinophils Not Reportable Absolute Basophils Not Reportable Carbonic Acid HCO3/H2CO3 Ratio ABG pH ABG pCO2 ABG pO2 ABG HCO3 ABG O2 Saturation ABG Base Excess FiO2 Sodium 139.6 Potassium 3.7 Chloride 110 H Carbon Dioxide 24 Anion Gap 6 BUN 16 Creatinine 0.42 L Est GFR ( Amer) > 60 Est GFR (Non-Af Amer) > 60 Glucose 195 H Lactic Acid 2.0 Calcium 7.8 L Phosphorus 3.1 Magnesium 2.5 H Total Bilirubin 2.4 H AST 30 ALT 46 Alkaline Phosphatase 75 Total Protein 5.3 L Albumin 2.5 L 10/04/18 05:25 WBC RBC Hgb Hct MCV MCH MCHC RDW Plt Count Seg Neutrophils % Lymphocytes % Monocytes % Eosinophils % Basophils % Absolute Neutrophils Absolute Lymphocytes Absolute Monocytes Absolute Eosinophils Absolute Basophils Carbonic Acid 0.92 L HCO3/H2CO3 Ratio 23:1 ABG pH 7.46 H ABG pCO2 30.6 L ABG pO2 90.8 ABG HCO3 21.3 ABG O2 Saturation 97.4 ABG Base Excess -2.0 FiO2 25% Sodium Potassium Chloride Carbon Dioxide Anion Gap BUN Creatinine Est GFR ( Amer) Est GFR (Non-Af Amer) Glucose Lactic Acid Calcium Phosphorus Magnesium Total Bilirubin AST ALT Alkaline Phosphatase Total Protein Albumin 10/01/18 10:10 Tracheal Aspirate Gram Stain - Final 10/01/18 10:10 Tracheal Aspirate Sputum Culture - Final Staphylococcus Aureus Normal Viviaan Absent 10/02/18 04:27 NT-Pro-B Natriuret Pep 379 Impressions: Abdomen X-Ray 09/25/18 06:29 IMPRESSION: Difficult to exclude developing small bowel obstruction. Recommend CT. KUB X-Ray 09/25/18 12:03 IMPRESSION: NG tube appears to be in satisfactory position. Acute Abdomen Series 09/26/18 07:00 IMPRESSION: Improvement in the dilated loops of small bowel with few residual gas fluid levels within the pelvis. No evidence of perforation. Chest CT 10/02/18 00:00 IMPRESSION: MODERATE BILATERAL PLEURAL EFFUSIONS WITH MILD BASILAR ATELECTASIS. Abdomen/Pelvis CT 10/03/18 00:00 IMPRESSION: Pneumoperitoneum with gas containing debris in the midline skin incision. Cannot exclude bowel perforation. No obvious abscess. No obstruction. Chest X-Ray 10/04/18 06:00 IMPRESSION: 1. Improving aeration in the left lung base suggesting resolving atelectasis. 2. Grossly stable life support lines and tubes. 3. The right lung is grossly clear. 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
[2018-10-04] MEDS ORDERED: ACETAMINOPHEN 1,000 MG/100 ML RTUPB IV PRN (09:10)
[2018-10-04] MEDS: MORPHINE SULFATE 10 MG/ML INJ IV PRN (09:15)
[2018-10-04] MEDS: HYDROCHLOROTHIAZIDE 25 MG TABLET PO SCH (10:03)
[2018-10-04] MEDS: METRONIDAZOLE 500 MG/NS RTU 500 MG/100 ML RTUPB IV SCH (10:12)
[2018-10-04] MEDS: ERTAPENEM SODIUM 1 GM in NORMAL SALINE 50 ML IV SCH (10:12)
[2018-10-04] MEDS ORDERED: ALBUMIN HUMAN 12.5 GM/50 ML RTUINJ IV ONE (11:45)
[2018-10-04] MEDS ORDERED: NORMAL SALINE 1000 ML 1,000 ML IV ONE (12:00)
[2018-10-04 12:48] VITALS: BP 106/47
--- NOTE | 2018-10-04 12:56 | HX & PHYSICAL/TRANSFER SUMM E ---
TRANSFER SUMMARY/HISTORY AND PHYSICAL NAME: SANDY WILL : 1945 AGE: 73Y ADMITTED: 09/25/2018 TRANSFERRED: 10/04/2018 The patient is being transferred from [facility] Intensive Care Unit to [facility] Surgical Intensive Care Unit. HISTORY AND HOSPITAL COURSE: The patient is a 73-year-old female who was admitted to this hospital on 09/25/2018 because of abdominal pain. She has had a history of previous colon resections x3 and presented with nausea and vomiting and abdominal pain. She reported symptoms started about 11:00 on the day of admission and she had 4 or 5 episodes of vomiting that day. She also had complaints of a long history of chronic constipation and intestinal complaints that had led her to use chronic laxatives and had only infrequent bowel movements. This has caused her also to have a poor appetite over the course of the last 6 months prior to her admission with some weight loss of 10 to [address] scan was obtained in the emergency room which showed a dilated proximal small bowel and a questionable dilation at her colonic anastomosis. She was monitored in the hospital with an NG suction and then the following day was taken to endoscopy where we performed a colonoscopy which showed no evidence of a coloanal or colorectal anastomotic stricture. The following day she continued to have increasing abdominal distention despite NG suction and abdominal pain on the left. Therefore, she was taken to surgery on 09/27/2018 where she underwent an exploratory laparotomy. At the time of laparotomy she was noted to have a hostile abdomen with her small bowel with evidence of previous radiation. It was chronically thickened and matted in the pelvis as well as in the upper abdomen. She had an extensive lysis of adhesions that took over 5 hours with multiple enterotomies and requirements of 3 separate small bowel segmental resections. All the enterotomies and serosal defects were closed with interrupted silk suture and the patient was left with a fairly short segment of small bowel, approximately 100 to 120 cm, between ligament of Treitz and the terminal ileum. Her ileocecal valve was preserved. She was then taken to the intensive care unit where she was monitored postop. She remained intubated on a propofol drip for approximately 48 hours and then plans were being made for weaning her off the ventilator. She did not tolerate ventilator weaning and she remains on a propofol drip. The patient had issues with agitation as attempted weaning was begun, which led to a prolonged intubation. Over the course of the next 2 or 3 days she developed bilateral pleural effusions that appeared secondary to fluid overload and/or her poor nutritional status and, therefore, we had difficulty weaning her from the vent. She has remained stable throughout her postop course as far as her vital signs and her blood pressure. Her white count has remained relatively stable although now is slowly rising to 14.5 today on the 04 of October. She did require a transfusion of 1 unit of packed cells shortly after her operation and has been stable since. Approximately 36 hours ago she developed some cellulitis around the mid portion of her wound and it was opened. Upon opening her wound there was some bilious drainage that appeared to be a fistula. This is now being controlled with dressing changes and/or suction catheters. She underwent a CAT scan shortly after that of her abdomen which did not show any drainable areas of fluid collections that could be considered abscesses. Because of the difficulties in managing her medical problems in the ICU, it was felt that the patient would be better served at a tertiary center and, therefore, request has been made for transfer to [facility] in [place]. Conversation has been made with the surgeon weatherization administrator there and he has accepted the patient in transfer for surgical management. Currently her vital signs are stable. She remains on just IV fluids and TPN. She has a blood pressure of 110/50 and a pulse rate of 75. She is transferred via ambulance to [facility]. DICTATING PHYSICIAN: DONNA MCDANIELS M.D. [id number] PHY#: [id number] ID: [id number] JOB#: [id number] ACCT: [id number] cc:DONNA MCDANIELS M.D. > MTDD
[2018-10-04 14:41] LABS: PATH REVIEW PATHOLOGIST REVIEWED
--- NOTE | 2018-10-16 15:30 | TRANSFER SUMMARY E ---
Transfer Summary NAME: SANDY WILL : 1945 AGE: 73Y ADMITTED: 09/25/2018 TRANSFERRED: 10/16/2018 ADDENDUM: DISCHARGE DIAGNOSES: 1. SMALL BOWEL OBSTRUCTION STATUS POST EXPLORATORY LAPAROTOMY WITH SMALL BOWEL RESECTION. 2. RESPIRATORY FAILURE WAS PRESENT AND PATIENT WAS VENTILATOR-DEPENDENT. THIS WAS RELATED TO PATIENT'S COMORBID CONDITIONS INCLUDING MALNUTRITION AND A SMALL BOWEL OBSTRUCTION. DICTATING PHYSICIAN: DONNA MCDANIELS M.D. [id number] PHY#: [id number] ID: [id number] JOB#: [id number] ACCT: [id number] cc:DONNA MCDANIELS M.D. >
== END 2018-10-04 12:30 | disposition short-term general hospital (02) | DRG 329 ==
LOC: ER 03:49 → EH 12:19 → OBSVTOIN 12:19 → 2N 17:10 → ICU 09-27 00:58
PROVIDERS: ADMIT Surgery; ATTEND Surgery
PROC: 0DJD8ZZ Inspection of Lower Intestinal Tract, Via Natural or Artificial Opening Endoscopic (ICD-10-PCS; 2018-09-25)
PROC: 0D9670Z Drainage of Stomach with Drainage Device, Via Natural or Artificial Opening (ICD-10-PCS; 2018-09-25)
PROC: 0DB80ZZ Excision of Small Intestine, Open Approach (ICD-10-PCS; principal; 2018-09-27)
PROC: 0DN80ZZ Release Small Intestine, Open Approach (ICD-10-PCS; 2018-09-27)
PROC: 02HV33Z Insertion of Infusion Device into Superior Vena Cava, Percutaneous Approach (ICD-10-PCS; 2018-09-27)
PROC: B548ZZA Ultrasonography of Superior Vena Cava, Guidance (ICD-10-PCS; 2018-09-27)
PROC: 30233N1 Transfusion of Nonautologous Red Blood Cells into Peripheral Vein, Percutaneous Approach (ICD-10-PCS; 2018-09-27)
PROC: 5A1955Z Respiratory Ventilation, Greater than 96 Consecutive Hours (ICD-10-PCS; 2018-09-27)
PROC: 0BH17EZ Insertion of Endotracheal Airway into Trachea, Via Natural or Artificial Opening (ICD-10-PCS; 2018-09-27)
PROC: 3E0G76Z Introduction of Nutritional Substance into Upper GI, Via Natural or Artificial Opening (ICD-10-PCS; 2018-09-28)
DX: K91.31 Postprocedural partial intestinal obstruction (principal); J96.00 Acute respiratory failure, unspecified whether with hypoxia or hypercapnia; T81.49XA Infection following a procedure, other surgical site, initial encounter; T81.83XA Persistent postprocedural fistula, initial encounter; N39.0 Urinary tract infection, site not specified; L03.311 Cellulitis of abdominal wall; C18.9 Malignant neoplasm of colon, unspecified; J90 Pleural effusion, not elsewhere classified; Y83.2 Surgical operation with anastomosis, bypass or graft as the cause of abnormal reaction of the patient, or of later complication, without mention of misadventure at the time of the procedure; I95.9 Hypotension, unspecified; I87.8 Other specified disorders of veins; D50.9 Iron deficiency anemia, unspecified; D69.59 Other secondary thrombocytopenia; B95.61 Methicillin susceptible Staphylococcus aureus infection as the cause of diseases classified elsewhere; E88.09 Other disorders of plasma-protein metabolism, not elsewhere classified; K44.9 Diaphragmatic hernia without obstruction or gangrene; I10 Essential (primary) hypertension; Z92.3 Personal history of irradiation; Z90.49 Acquired absence of other specified parts of digestive tract; Z90.710 Acquired absence of both cervix and uterus; Z88.2 Allergy status to sulfonamides; Z88.6 Allergy status to analgesic agent; Z78.1 Physical restraint status
CPT/HCPCS: 36415; 36430; 36600; 45380; 71045; 71250; 74018; 74019; 74022; 74176; 74177; 790; 80048; 80053; 81001; 811; 82040; 82607; 82728; 82746; 82803; 82962; 83540; 83550; 83605; 83735; 83880; 84100; 84132; 84134; 85025; 85027; 85045; 85384; 85610; 85730; 86850; 86900; 86901; 86920; 87040; 87070; 87075; 87077; 87086; 87186; 87205; 87493; 88307; 88341; 88342; 93005; 93010; 94002; 94003; 99285; J0131; J0330; J0610; J0690; J0696; J1100; J1335; J1439; J1642; J1815; J2060; J2250; J2270; J2405; J2550; J2704; J2997; J3010; J3475; J3480; J3490; J7030; J7040; J7050; J7120; P9016; P9047; S0028

== ENCOUNTER 2018-12-09 21:53 | Inpatient (IN) | payer MEDICARE, BC ==
--- NOTE | 2018-12-09 22:17 | ER Document Report ---
ED Medical Screen (RME) - General Chief Complaint: Abnormal Lab Results Stated Complaint: ABNORMAL LAB RESULTS/LOW POTASSIUM Time Seen by Provider: 12/09/18 22:13 Primary Care Provider: STEPHANIA ADAMSON MD [Primary Care Provider] - Follow up as needed Notes: Patient is a 73-year-old female that comes to the emergency department for complaints of abnormal labs. She states she had labs drawn today, was told to come to the emergency department for a potassium of 2.7. Medical history includes partial bowel resection for colon cancer at the end of last year, she has both TPN and Zosyn running (had either wound infection or abscess complication of surgical site, patient and family unsure), takes fluids and Ensure by mouth, admits to diarrhea every time she has a TPN infusion or she drinks anything. Has had between 5 and 10 episodes of diarrhea today. She is on potassium supplement in the TPN. Denies any current symptoms. TRAVEL OUTSIDE OF THE [place] IN LAST 30 DAYS: No - Related Data Allergies/Adverse Reactions: Sulfa (Sulfonamide Antibiotics) Allergy (Verified 04/03/17 09:06) Generalized Itching codeine [Codeine] Adverse Reaction (Mild, Verified 04/03/17 09:06) Nausea Past Medical History - Past Medical History Cardiac Medical History: Reports: Hx Hypertension Denies: Hx Coronary Artery Disease, Hx Heart Attack Pulmonary Medical History: Denies: Hx Asthma, Hx Bronchitis, Hx COPD, Hx Pneumonia Neurological Medical History: Denies: Hx Cerebrovascular Accident, Hx Seizures Renal/ Medical History: Denies: Hx Peritoneal Dialysis Malignancy Medical History: Reports: Hx Colorectal Cancer GI Medical History: Reports: Hx Hiatal Hernia. Denies: Hx Hepatitis, Hx Ulcer Musculoskeltal Medical History: Denies Hx Arthritis Infectious Medical History: Denies: Hx Hepatitis Past Surgical History: Reports: Hx Abdominal Surgery, Hx Appendectomy, Hx Cholecystectomy, Hx Hysterectomy, Other - Colon resection, skin biopsy. Denies: Hx Mastectomy, Hx Open Heart Surgery, Hx Pacemaker - Immunizations Hx Diphtheria, Pertussis, Tetanus Vaccination: Yes Physical Exam - General General appearance: Appears well In distress: None - Abdominal Tenderness: Other - Large dressing in the mid to lower abdomen over the healing abdominal wound Doctor's Discharge - Discharge Referrals: STEPHANIA ADAMSON MD [Primary Care Provider] - Follow up as needed
[2018-12-09 23:35] LABS: ABSOLUTE EOSINOPHILS # (AUTO) 0.2 10^3/uL (0.0-0.6); ABSOLUTE LYMPHOCYTES (AUTO) 1.4 10^3/uL (0.5-4.7); ABSOLUTE MONOCYTES (AUTO) 0.4 10^3/uL (0.1-1.4); ABSOLUTE NEUT (AUTO) 3.3 10^3/uL (1.7-8.2); BASOPHILS % (AUTO) 0.6 % (0-2); EOSINOPHILS % (AUTO) 3.4 % (0-6); HEMATOCRIT 22.1 % (36.0-47.0); LYMPHOCYTES % (AUTO) 26.9 % (13-45); MEAN CORPUSCULAR HGB CONC 35.7 g/dL (32.0-36.0); MONOCYTES % (AUTO) 7.5 % (3-13); PLATELET COUNT 428 10^3/uL (150-450); RED BLOOD COUNT 2.46 10^6/uL (3.72-5.28); RED CELL DISTRIBUTION WIDTH 15.8 % (11.5-14.0); SEGMENTED NEUTROPHILS % (AUTO) 61.6 % (42-78); TOTAL CELLS COUNTED % (AUTO) 100 %; WHITE BLOOD COUNT 5.3 10^3/uL (4.0-10.5)
[2018-12-09 23:57] LABS: HEMOGLOBIN 7.9 g/dL (12.0-15.5); MEAN CORPUSCULAR VOLUME 90 fl (80-97)
--- NOTE | 2018-12-10 00:10 | EKG REPORT ---
SEVERITY:- ABNORMAL ECG - SINUS RHYTHM PROBABLE LEFT ATRIAL ABNORMALITY BORDERLINE INFERIOR Q WAVES BORDERLINE PROLONGED QT INTERVAL : Confirmed by: Gisele Valenzuela 10-Dec-2018 00:09:34
[2018-12-10 00:52] LABS: ALANINE AMINOTRANSFERASE 49 U/L (9-52); ALBUMIN 3.2 g/dL (3.5-5.0); ALKALINE PHOSPHATASE 124 U/L (38-126); ANION GAP 10 (5-19); ASPARTATE AMINO TRANSFERASE 50 U/L (14-36); BILIRUBIN,DIRECT 0.2 mg/dL (0.0-0.4); BILIRUBIN,TOTAL 0.3 mg/dL (0.2-1.3); BLOOD UREA NITROGEN 65 mg/dL (7-20); CALCIUM 9.7 mg/dL (8.4-10.2); CARBON DIOXIDE 30 mmol/L (22-30); CHLORIDE 97 mmol/L (98-107); GLUCOSE 141 mg/dL (75-110); SODIUM 137.1 mmol/L (137-145)
[2018-12-10 00:54] LABS: POTASSIUM 2.3 mmol/L (3.6-5.0)
[2018-12-10] MEDS: MAGNESIUM SULFATE/D5W 1 GM/100 ML RTUPB IV SCH ×2 (01:14→01:30)
[2018-12-10] MEDS ORDERED: ONDANSETRON HCL INJ/PF 4 MG/2 ML SDV IV ONE (01:52)
--- NOTE | 2018-12-10 01:54 | ER Document Report ---
ED General - General Chief Complaint: Abnormal Lab Results Stated Complaint: ABNORMAL LAB RESULTS/LOW POTASSIUM Time Seen by Provider: 12/09/18 22:13 Primary Care Provider: STEPHANIA ADAMSON MD [NO LOCAL MD] - Follow up as needed Notes: Patient is a 73-year-old female that comes to the emergency department for comp laints of abnormal labs. She states she had labs drawn today, was told to come to the emergency department for a potassium of 2.7. Medical history includes partial bowel resection for colon cancer at the end of last year, she has both TPN and Zosyn running (had either wound infection or abscess complication of surgical site, patient and family unsure), takes fluids and Ensure by mouth, admits to diarrhea every time she has a TPN infusion or she drinks anything. Has had between 5 and 10 episodes of diarrhea today. She is on potassium supplement in the TPN. Denies any current symptoms other than general fatigue. States she also feels somewhat shaky. Nothing seems to improve or worsen the symptoms. She has no previous history of severe hypokalemia in the past TRAVEL OUTSIDE OF THE [place] IN LAST 30 DAYS: No - Related Data Allergies/Adverse Reactions: Sulfa (Sulfonamide Antibiotics) Allergy (Verified 04/03/17 09:06) Generalized Itching codeine [Codeine] Adverse Reaction (Mild, Verified 04/03/17 09:06) Nausea Past Medical History - General Information source: Patient - Social History Smoking Status: Never Smoker Frequency of alcohol use: None Drug Abuse: None Lives with: Family Family History: Reviewed & Not Pertinent Patient has suicidal ideation: No Patient has homicidal ideation: No - Past Medical History Cardiac Medical History: Reports: Hx Hypertension Denies: Hx Coronary Artery Disease, Hx Heart Attack Pulmonary Medical History: Denies: Hx Asthma, Hx Bronchitis, Hx COPD, Hx Pneumonia Neurological Medical History: Denies: Hx Cerebrovascular Accident, Hx Seizures Renal/ Medical History: Denies: Hx Peritoneal Dialysis Malignancy Medical History: Reports: Hx Colorectal Cancer GI Medical History: Reports: Hx Hiatal Hernia. Denies: Hx Hepatitis, Hx Ulcer Musculoskeletal Medical History: Denies Hx Arthritis Infectious Medical History: Denies: Hx Hepatitis Past Surgical History: Reports: Hx Abdominal Surgery, Hx Appendectomy, Hx Cholecystectomy, Hx Hysterectomy, Other - Colon resection, skin biopsy. Denies: Hx Mastectomy, Hx Open Heart Surgery, Hx Pacemaker - Immunizations Hx Diphtheria, Pertussis, Tetanus Vaccination: Yes Hx Pneumococcal Vaccination: 06/24/14 Review of Systems - Review of Systems Notes: Constitutional: Positive for general weakness, shakiness HENT: Negative for sore throat. Eyes: Negative for visual changes. Cardiovascular: Negative for chest pain. Respiratory: Negative for shortness of breath. Gastrointestinal: Negative for abdominal pain, vomiting or diarrhea. Genitourinary: Negative for dysuria. Musculoskeletal: Negative for back pain. Skin: Negative for rash. Neurological: Negative for headaches, weakness or numbness. 10 point ROS negative except as marked above and in HPI. Physical Exam - Vital signs Interpretation: Normal Notes: PHYSICAL EXAMINATION: GENERAL: Somewhat frail, no acute distress HEAD: Atraumatic, normocephalic. EYES: Pupils equal round and reactive to light, extraocular movements intact, sclera anicteric, conjunctiva are normal. ENT: nares patent, oropharynx clear without exudates. Amount of dry mucous m embranes. NECK: Normal range of motion, supple without lymphadenopathy LUNGS: Breath sounds clear to auscultation bilaterally and equal. No wheezes rales or rhonchi. HEART: Regular rate and rhythm without murmurs ABDOMEN: Soft, wound VAC in place. No focal tenderness. EXTREMITIES: Normal range of motion, no pitting or edema. No cyanosis. NEUROLOGICAL: No focal neurological deficits. Moves all extremities spontaneously and on command. PSYCH: Normal mood, normal affect. SKIN: Warm, Dry, normal turgor, no rashes or lesions noted. Course - Re-evaluation Re-evalutation: 12/10/18 01:52 Presentation of an somewhat emaciated appearing patient although in no acute distress with concerns of hypokalemia. Potassium is 2.3 with a moderately prolonged QT at 488. All the patient's previous EKG likewise shows prolonged QT in this context it is still somewhat concerning particularly given the low potassium. Potassium and magnesium repletion were initiated. I have discussed this case with the hospitalist Dr. Salamanca who has accepted the patient for admission. - Laboratory Result Diagrams: 12/09/18 23:20 12/10/18 00:20 Laboratory results interpreted by me: 12/09/18 12/10/18 23:20 00:20 RBC 2.46 L Hgb 7.9 L Hct 22.1 L RDW 15.8 H Potassium 2.3 L* Chloride 97 L BUN 65 H Glucose 141 H AST 50 H Total Protein 6.0 L Albumin 3.2 L - EKG Interpretation by Me Additional EKG results interpreted by me: 12/10/18 01:53 Sinus rhythm, rate 84, borderline prolonged QT at 488. No ST elevations or depressions. Discharge - Discharge Clinical Impression: Hypokalemia Malnutrition Qualifiers: Malnutrition type: unspecified type Qualified Code(s): E46 - Unspecified protein-calorie malnutrition Anemia Qualifiers: Anemia type: unspecified type Qualified Code(s): D64.9 - Anemia, unspecified Condition: Fair Disposition: ADMITTED INPATIENT Admitting Provider: Hospitalist Unit Admitted: Telemetry Referrals: STEPHANIA ADAMSON MD [NO LOCAL MD] - Follow up as needed
[2018-12-10] MEDS: POTASSI CL 20 MEQ/50 ML RIDER 20 MEQ/50 ML RTUPB IV SCH ×4 (01:56→08:19)
[2018-12-10] MEDS ORDERED: TEMAZEPAM 7.5 MG CAPSULE PO PRN (02:16)
[2018-12-10 03:36] LABS: FREE T3 4.96 pg/mL (2.77-5.27)
[2018-12-10 03:49] LABS: THYROID STIMULATING HORMONE 2.18 uIU/mL (0.47-4.68)
[2018-12-10 04:03] LABS: FREE T4 (FREE THYROXINE) 0.77 ng/dL (0.78-2.19)
--- NOTE | 2018-12-10 05:27 | PDOC H&P ---
History of Present Illness Admission Date/PCP: 12/10/2018 Patient complains of: Hypokalemia History of Present Illness: SANDY WILL is a 73 year old female who presented to the emergency room with a history of a low potassium on lab work performed earlier today. She was instructed by her home health nurse to come to the emergency room for treatment of a low potassium. Her potassium was 2.7 on her laboratory results and she admits a 2 1/2 month history of painless, moderate volume, watery diarrhea stools 5-10 times daily since her colon surgery (colon cancer) on 09/26/2018. She states that her bowels move with diarrhea every time she gets a TPN infusion or has any oral intake. She additionally complains of moderate generalized fatigue and weakness. She has not identified any additional aggravating or ameliorating factors for her diarrhea and low potassium. She denies prior similar episodes. She does admit that she has been on Zosyn IV since her surgery on September 26, 2018. In the emergency room her potassium was found to be 2.3 and she was noted to have a slightly prolonged QT interval of 488 however this is essentially unchanged from a prior EKG at a time when she was not hypokalemic. Due to her significant hypokalemia patient is admitted to the hospital for further evaluation and treatment with potassium correction and evaluation of her diarrhea. Past Medical History Cardiac Medical History: Reports: Hypertension Denies: Coronary Artery Disease, Myocardial Infarction Pulmonary Medical History: Denies: Asthma, Bronchitis, Chronic Obstructive Pulmonary Disease (COPD), Pneumonia EENT Medical History: Denies: Cataracts, Nose - Nasal polyps Neurological Medical History: Denies: Hemorrhagic CVA, Ischemic CVA, Seizures Endocrine Medical History: Denies: Diabetes Mellitus Type 1, Diabetes Mellitus Type 2, Hyperthyroidism, Hypothyroidism Renal/ Medical History: Denies: Chronic Kidney Disease, Nephrolithiasis Malignancy Medical History: Reports: Colorectal Cancer GI Medical History: Reports: Hiatal Hernia, Other - Colon cancer Denies: Cirrhosis, Hepatitis Musculoskeltal Medical History: Denies: Arthritis, Gout Skin Medical History: Denies: Eczema, Psoriasis Psychiatric Medical History: Denies: Alcohol Dependency, Substance Abuse, Tobacco Dependency Traumatic Medical History: Reports: None Hematology: Reports: Anemia - RECENTLY B12 INJ (FOR 4 WEEKS) Denies: Bleeding Tendencies Infectious History Note: Patient is currently on IV antibiotics utilizing Zosyn for a postoperative wound or abscess of some nature. The patient and her family are not certain as to the exact diagnosis. She has been on this antibiotic for an extended period of time. Patient is also on TPN nutrition as well as oral fluids and Ensure. She is receiving a potassium supplement with her TPN. Past Surgical History Past Surgical History: Reports: Appendectomy, Cholecystectomy, Hysterectomy, Other - Colon resection, skin biopsy Social History Information Source: Emergency Med Personnel, [facility] Records Lives with: Family Smoking Status: Never Smoker Frequency of Alcohol Use: None Hx Recreational Drug Use: No Drugs: None Hx Prescription Drug Abuse: No - Advance Directive Resuscitation Status: Full Code Surrogate healthcare decision maker:: Spouse Family History Family History: CAD, DM, Hypertension. denies: Malignancy Parental Family History Reviewed: Yes Children Family History Reviewed: No Sibling(s) Family History Reviewed.: Yes Medication/Allergy Home Medications: Estrogens, Conjugated [Premarin] 1.25 mg PO DAILY 06/02/14 Alendronate Sodium [Fosamax 70 mg Tablet] 70 mg PO DOMINGUEZ@1000 09/25/18 Cholecalciferol (Vitamin D3) [Vitamin D] 50,000 unit PO Q30D 09/25/18 Esomeprazole Magnesium [Nexium] 20 mg PO DAILY 09/25/18 Meloxicam [Mobic] 15 mg PO DAILY 09/25/18 Prednisone [Deltasone 1 mg Tablet] 1 mg PO DAILY 09/25/18 Valsartan/Hydrochlorothiazide [Valsartan-Hctz 80-12.5 mg Tab] 1 each PO DAILY 09/25/18 Allergies/Adverse Reactions: Sulfa (Sulfonamide Antibiotics) Allergy (Verified 04/03/17 09:06) Generalized Itching codeine [Codeine] Adverse Reaction (Mild, Verified 04/03/17 09:06) Nausea Review of Systems Constitutional: PRESENT: as per HPI, fatigue, weakness. ABSENT: chills, fever(s) Eyes: ABSENT: visual disturbances, other - Eye pain Ears: ABSENT: hearing changes, other - Ear pain Nose, Mouth, and Throat: ABSENT: mouth pain, sore throat Cardiovascular: ABSENT: chest pain, palpitations Gastrointestinal: PRESENT: as per HPI, diarrhea. ABSENT: abdominal pain, constipation, nausea, vomiting Genitourinary: ABSENT: dysuria, hematuria Musculoskeletal: ABSENT: back pain, joint swelling Integumentary: ABSENT: pruritus, rash Neurological: ABSENT: confusion, convulsions, focal weakness, memory loss Psychiatric: ABSENT: anxiety, depression Endocrine: ABSENT: cold intolerance, heat intolerance Hematologic/Lymphatic: ABSENT: easy bleeding, easy bruising Physical Exam Vital Signs: Intake & Output 12/08/18 12/09/18 12/10/18 23:59 23:59 23:59 Intake Total 100 Balance 100 General appearance: PRESENT: no acute distress, cooperative Head exam: PRESENT: atraumatic, normocephalic Eye exam: PRESENT: conjunctiva pink. ABSENT: scleral icterus Ear exam: PRESENT: normal external ear exam. ABSENT: bleeding, drainage Mouth exam: PRESENT: dry mucosa, neck supple Neck exam: ABSENT: thyromegaly, tracheal deviation Respiratory exam: PRESENT: clear to auscultation mar, symmetrical, unlabored Cardiovascular exam: PRESENT: RRR. ABSENT: clicks, gallop, rubs Pulses: PRESENT: normal radial pulses, normal dorsalis pedis pul Vascular exam: PRESENT: normal capillary refill. ABSENT: pallor GI/Abdominal exam: PRESENT: normal bowel sounds, soft Rectal exam: PRESENT: deferred Extremities exam: ABSENT: joint swelling, pedal edema Musculoskeletal exam: ABSENT: deformity, dislocation Neurological exam: PRESENT: alert, oriented to person, oriented to place, oriented to time, oriented to situation, CN II-XII grossly intact. ABSENT: motor sensory deficit Psychiatric exam: PRESENT: appropriate affect, normal mood Skin exam: PRESENT: dry, intact, warm. ABSENT: jaundice, rash, urticaria Results Laboratory Results: 12/09/18 23:20 12/10/18 00:20 12/09/18 12/09/18 12/09/18 22:45 22:45 23:20 WBC Cancelled 5.3 RBC Cancelled 2.46 L Hgb Cancelled 7.9 L Hct Cancelled 22.1 L MCV Cancelled 90 D MCH Cancelled 32.0 MCHC Cancelled 35.7 RDW Cancelled 15.8 H Plt Count Cancelled 428 Seg Neutrophils % Cancelled 61.6 Lymphocytes % Cancelled 26.9 Monocytes % Cancelled 7.5 Eosinophils % Cancelled 3.4 Basophils % Cancelled 0.6 Absolute Neutrophils Cancelled 3.3 Absolute Lymphocytes Cancelled 1.4 Absolute Monocytes Cancelled 0.4 Absolute Eosinophils Cancelled 0.2 Absolute Basophils Cancelled 0.0 Sodium Cancelled Potassium Cancelled Chloride Cancelled Carbon Dioxide Cancelled Anion Gap Cancelled BUN Cancelled Creatinine Cancelled Est GFR ( Amer) Cancelled Est GFR (Non-Af Amer) Cancelled Glucose Cancelled Calcium Cancelled Magnesium Cancelled Total Bilirubin AST ALT Alkaline Phosphatase Total Protein Albumin 12/10/18 12/10/18 00:20 00:20 WBC RBC Hgb Hct MCV MCH MCHC RDW Plt Count Seg Neutrophils % Lymphocytes % Monocytes % Eosinophils % Basophils % Absolute Neutrophils Absolute Lymphocytes Absolute Monocytes Absolute Eosinophils Absolute Basophils Sodium 137.1 Potassium 2.3 L* Chloride 97 L Carbon Dioxide 30 Anion Gap 10 BUN 65 H Creatinine 0.86 Est GFR ( Amer) > 60 Est GFR (Non-Af Amer) > 60 Glucose 141 H Calcium 9.7 Magnesium 2.1 Total Bilirubin 0.3 AST 50 H ALT 49 Alkaline Phosphatase 124 Total Protein 6.0 L Albumin 3.2 L Assessment & Plan - Diagnosis (1) Chronic diarrhea Is this a current diagnosis for this admission?: Yes Plan: A C. difficile PCR will be obtained and patient will be treated with oral vancomycin 125 mg every 6 hours. Further evaluation of her diarrhea will be undertaken as appropriate. GI consultation may be required. (2) Prolonged QT interval syndrome Is this a current diagnosis for this admission?: Yes Plan: Patient will be observed on telemetry as her potassium level is corrected. He has noted the patient's QT interval of 488 is essentially unchanged from her prior QT interval at a time when she was not hypokalemic. (3) Hypokalemia Is this a current diagnosis for this admission?: Yes Plan: Patient's hypokalemia will be corrected utilizing IV potassium chloride (K riders). Her electrolytes to be monitored closely every 6 hours and her serum magnesium will also be monitored throughout hospital course. (4) Hypertension Qualifiers: Hypertension type: essential hypertension Qualified Code(s): I10 - Essential (primary) hypertension Is this a current diagnosis for this admission?: Yes Plan: Patient's hypertension will be treated with her usual medications once her medication list has been updated. This will of course require that her usual medication does not precipitate hypokalemia. - Time Time Spent: 30 to 50 Minutes Critical Time spent with patient: Less than 15 minutes Medications reviewed and adjusted accordingly: Yes Anticipated discharge: Home - Inpatient Certification Based on my medical assessment, after consideration of the patient's comorbidities, presenting symptoms, or acuity I expect that the services needed warrant INPATIENT care.: Yes I certify that my determination is in accordance with my understanding of Medicare's requirements for reasonable and necessary INPATIENT services [42 CFR 412.3e].: Yes Medical Necessity: Need Close Monitoring Due to Risk of Patient Decompensation, Need For Continuous Telemetry Monitoring, Risk of Complication if Not Cared For in Hospital
[2018-12-10] MEDS: ONDANSETRON HCL INJ/PF 4 MG/2 ML SDV IV PRN ×2 (05:59→18:30)
[2018-12-10 06:40] LABS: ANION GAP 10 (5-19); BLOOD UREA NITROGEN 75 mg/dL (7-20); CALCIUM 9.6 mg/dL (8.4-10.2); CARBON DIOXIDE 28 mmol/L (22-30); CHLORIDE 100 mmol/L (98-107); GLUCOSE 105 mg/dL (75-110); SODIUM 138.4 mmol/L (137-145)
[2018-12-10] MEDS: HEPARIN SOD (PORCINE) 5,000 UNIT/ML 1 ML SYRINGE SUBCUT SCH ×3 (06:43→21:42)
[2018-12-10] MEDS: VANCOMYCIN HCL INJ 500 MG VIAL PO SCH ×3 (06:43→18:28)
[2018-12-10 06:46] LABS: POTASSIUM 3.4 mmol/L (3.6-5.0)
[2018-12-10] MEDS: FAMOTIDINE INJ/PF 20 MG/2 ML SDV IV SCH ×2 (10:14→21:42)
[2018-12-10] MEDS ORDERED: ACETAMINOPHEN 325 MG TABLET PO PRN (10:44)
[2018-12-10] MEDS ORDERED: ACETAMINOPHEN 325 MG TABLET PO ONE (10:44)
[2018-12-10] MEDS ORDERED: LOPERAMIDE HCL 2 MG CAPSULE PO ONE (10:45)
[2018-12-10] MEDS ORDERED: DEXTROSE 40% GEL 15 GM TUBE PO PRN ×2 (10:48)
[2018-12-10] MEDS ORDERED: DEXTROSE 50%-WATER 25 GM/50 ML DISP.SYRIN IV PRN ×2 (10:48)
[2018-12-10] MEDS ORDERED: GLUCAGON,HUMAN RECOMB 1 MG INJ IM PRN (10:48)
[2018-12-10] MEDS: DEXTROSE 5%-NORMAL SALINE 1,000 ML IV PRN ×2 (11:33→17:49)
[2018-12-10] MEDS: INSULIN REG, HUMAN 100 UNIT/ML 3 ML VIAL (PYX) SUBCUT SCH ×2 (12:20→18:30)
[2018-12-10] MEDS: CETIRIZINE 10 MG TABLET PO SCH (12:47)
[2018-12-10] MEDS ORDERED: PIPERACILLIN/TAZOBACTAM 3.375 GM VIAL IV SCH (14:00)
[2018-12-10] MEDS: PIPERACILLIN SODIUM/TAZOBACTAM 3.375 GM in NORMAL SALINE 100 ML IV SCH ×2 (14:48→21:43)
[2018-12-10] MEDS: LOPERAMIDE HCL 2 MG CAPSULE PO PRN (18:30)
[2018-12-10] MEDS: FLUCONAZOLE 100 MG TABLET PO SCH (21:41)
[2018-12-10] MEDS ORDERED: (PENDING PHARMACY ID) (Fluconazole [Diflucan] 200 MG) PO SCH (22:00)
[2018-12-11] MEDS: INSULIN REG, HUMAN 100 UNIT/ML 3 ML VIAL (PYX) SUBCUT SCH ×4 (00:49→17:33)
[2018-12-11] MEDS: VANCOMYCIN HCL INJ 500 MG VIAL PO SCH (01:33)
[2018-12-11] MEDS: ONDANSETRON HCL INJ/PF 4 MG/2 ML SDV IV PRN ×4 (01:37→22:15)
[2018-12-11] MEDS: LOPERAMIDE HCL 2 MG CAPSULE PO PRN ×4 (02:15→20:24)
[2018-12-11 02:54] LABS: ANION GAP 14 (5-19); CALCIUM 8.8 mg/dL (8.4-10.2); CARBON DIOXIDE 22 mmol/L (22-30); CHLORIDE 103 mmol/L (98-107); SODIUM 139.4 mmol/L (137-145)
[2018-12-11 03:19] LABS: POTASSIUM 4.4 mmol/L (3.6-5.0)
[2018-12-11 03:20] LABS: BLOOD UREA NITROGEN 42 mg/dL (7-20)
[2018-12-11 03:21] LABS: GLUCOSE 749 mg/dL (75-110)
[2018-12-11 03:52] LABS: ABSOLUTE BASOPHILS # (AUTO) 0.1 10^3/uL (0.0-0.2); ABSOLUTE EOSINOPHILS # (AUTO) 0.1 10^3/uL (0.0-0.6); ABSOLUTE LYMPHOCYTES (AUTO) 1.4 10^3/uL (0.5-4.7); ABSOLUTE MONOCYTES (AUTO) 0.4 10^3/uL (0.1-1.4); ABSOLUTE NEUT (AUTO) 4.6 10^3/uL (1.7-8.2); EOSINOPHILS % (AUTO) 2.2 % (0-6); HEMATOCRIT 21.8 % (36.0-47.0); MEAN CORPUSCULAR HEMOGLOBIN 28.3 pg (27.0-33.4); MEAN CORPUSCULAR HGB CONC 33.6 g/dL (32.0-36.0); PLATELET COUNT 427 10^3/uL (150-450); RED BLOOD COUNT 2.59 10^6/uL (3.72-5.28); RED CELL DISTRIBUTION WIDTH 15.6 % (11.5-14.0); SEGMENTED NEUTROPHILS % (AUTO) 69.8 % (42-78); TOTAL CELLS COUNTED % (AUTO) 100 %; WHITE BLOOD COUNT 6.5 10^3/uL (4.0-10.5)
[2018-12-11 03:54] LABS: MEAN CORPUSCULAR VOLUME 84 fl (80-97)
[2018-12-11 03:56] LABS: HEMOGLOBIN 7.3 g/dL (12.0-15.5)
[2018-12-11 03:58] LABS: VENOUS BLOOD BASE EXCESS -0.8 mmol/L; VENOUS BLOOD HCO3 23.7 mmol/L (20-32); VENOUS BLOOD PCO2 38.1 mmHg (35-63); VENOUS BLOOD PH 7.41 (7.30-7.42)
[2018-12-11 04:11] LABS: ANION GAP 8 (5-19); BLOOD UREA NITROGEN 49 mg/dL (7-20); CALCIUM 9.1 mg/dL (8.4-10.2); CARBON DIOXIDE 26 mmol/L (22-30); CHLORIDE 111 mmol/L (98-107); GLUCOSE 148 mg/dL (75-110); SODIUM 145.1 mmol/L (137-145)
[2018-12-11 04:16] LABS: POTASSIUM 2.9 mmol/L (3.6-5.0)
[2018-12-11] MEDS ORDERED: POTASSIUM CHLORIDE 20 MEQ/50 ML RTU IV ONE (04:45)
[2018-12-11] MEDS: HEPARIN SOD (PORCINE) 5,000 UNIT/ML 1 ML SYRINGE SUBCUT SCH ×3 (05:22→22:15)
[2018-12-11] MEDS: PIPERACILLIN SODIUM/TAZOBACTAM 3.375 GM in NORMAL SALINE 100 ML IV SCH ×3 (05:22→22:15)
--- NOTE | 2018-12-11 08:03 | PDOC PROGRESS REPORT ---
Subjective Progress Note for:: 12/10/18 Subjective:: The patient reports that she is feeling somewhat better but still feels poorly in general. She denies abdominal pain. She does not feel nauseated. Reason For Visit: SEVERE HYPOKALEMIA WITH PROLONGED QT INTERVAL Physical Exam Vital Signs: Temp Pulse Resp BP Pulse Ox 98.3 F 14 147/72 H 93 12/10/18 02:49 12/10/18 07:01 12/10/18 07:00 12/10/18 07:01 Intake & Output 12/09/18 12/10/18 12/11/18 06:59 06:59 06:59 Intake Total 300 Output Total 700 Balance -400 Weight 48.988 kg General appearance: PRESENT: no acute distress, cooperative Head exam: PRESENT: atraumatic, normocephalic Eye exam: PRESENT: conjunctiva pale. ABSENT: scleral icterus Ear exam: PRESENT: normal external ear exam Mouth exam: PRESENT: dry mucosa, neck supple, tongue midline Neck exam: ABSENT: carotid bruit, JVD, lymphadenopathy Respiratory exam: PRESENT: symmetrical, unlabored. ABSENT: accessory muscle use, rales, rhonchi, wheezes Cardiovascular exam: PRESENT: RRR, +S1, +S2 GI/Abdominal exam: PRESENT: normal bowel sounds, soft, tenderness - Nonspecific diffuse tenderness. ABSENT: ascites, guarding Rectal exam: PRESENT: deferred Extremities exam: ABSENT: pedal edema Musculoskeletal exam: PRESENT: normal inspection Neurological exam: PRESENT: alert, awake, oriented to person, oriented to place, oriented to time, oriented to situation, CN II-XII grossly intact Psychiatric exam: PRESENT: flat affect. ABSENT: agitated, anxious Focused psych exam: ABSENT: delusional, restlessness Results Laboratory Results: 12/09/18 23:20 12/10/18 05:41 12/09/18 12/09/18 12/09/18 22:45 22:45 23:20 WBC Cancelled 5.3 RBC Cancelled 2.46 L Hgb Cancelled 7.9 L Hct Cancelled 22.1 L MCV Cancelled 90 D MCH Cancelled 32.0 MCHC Cancelled 35.7 RDW Cancelled 15.8 H Plt Count Cancelled 428 Seg Neutrophils % Cancelled 61.6 Lymphocytes % Cancelled 26.9 Monocytes % Cancelled 7.5 Eosinophils % Cancelled 3.4 Basophils % Cancelled 0.6 Absolute Neutrophils Cancelled 3.3 Absolute Lymphocytes Cancelled 1.4 Absolute Monocytes Cancelled 0.4 Absolute Eosinophils Cancelled 0.2 Absolute Basophils Cancelled 0.0 Sodium Cancelled Potassium Cancelled Chloride Cancelled Carbon Dioxide Cancelled Anion Gap Cancelled BUN Cancelled Creatinine Cancelled Est GFR ( Amer) Cancelled Est GFR (Non-Af Amer) Cancelled Glucose Cancelled Lactic Acid Calcium Cancelled Magnesium Cancelled Total Bilirubin AST ALT Alkaline Phosphatase Total Protein Albumin TSH Free T4 Free T3 pg/mL 12/09/18 12/10/18 12/10/18 23:20 00:20 00:20 WBC RBC Hgb Hct MCV MCH MCHC RDW Plt Count Seg Neutrophils % Lymphocytes % Monocytes % Eosinophils % Basophils % Absolute Neutrophils Absolute Lymphocytes Absolute Monocytes Absolute Eosinophils Absolute Basophils Sodium Cancelled 137.1 Potassium Cancelled 2.3 L* Chloride Cancelled 97 L Carbon Dioxide Cancelled 30 Anion Gap Cancelled 10 BUN Cancelled 65 H Creatinine Cancelled 0.86 Est GFR ( Amer) Cancelled > 60 Est GFR (Non-Af Amer) Cancelled > 60 Glucose Cancelled 141 H Lactic Acid Calcium Cancelled 9.7 Magnesium 2.1 Total Bilirubin Cancelled 0.3 AST Cancelled 50 H ALT Cancelled 49 Alkaline Phosphatase Cancelled 124 Total Protein Cancelled 6.0 L Albumin Cancelled 3.2 L TSH Free T4 Free T3 pg/mL 12/10/18 12/10/18 12/10/18 00:20 02:40 05:41 WBC RBC Hgb Hct MCV MCH MCHC RDW Plt Count Seg Neutrophils % Lymphocytes % Monocytes % Eosinophils % Basophils % Absolute Neutrophils Absolute Lymphocytes Absolute Monocytes Absolute Eosinophils Absolute Basophils Sodium Potassium Chloride Carbon Dioxide Anion Gap BUN Creatinine Est GFR ( Amer) Est GFR (Non-Af Amer) Glucose Lactic Acid 0.9 0.9 Calcium Magnesium Total Bilirubin AST ALT Alkaline Phosphatase Total Protein Albumin TSH 2.18 Free T4 0.77 L Free T3 pg/mL 4.96 12/10/18 05:41 WBC RBC Hgb Hct MCV MCH MCHC RDW Plt Count Seg Neutrophils % Lymphocytes % Monocytes % Eosinophils % Basophils % Absolute Neutrophils Absolute Lymphocytes Absolute Monocytes Absolute Eosinophils Absolute Basophils Sodium 138.4 Potassium 3.4 L D Chloride 100 Carbon Dioxide 28 Anion Gap 10 BUN 75 H Creatinine 0.88 Est GFR ( Amer) > 60 Est GFR (Non-Af Amer) > 60 Glucose 105 Lactic Acid Calcium 9.6 Magnesium Total Bilirubin AST ALT Alkaline Phosphatase Total Protein Albumin TSH Free T4 Free T3 pg/mL Assessment and Plan - Diagnosis (1) Entero-enteric fistula Is this a current diagnosis for this admission?: Yes Plan: The patient had some details of her previous surgery. Evidently there was a bowel perforation. Postoperatively she developed a fistula. She has been on Zosyn for 70+ days. She is having diarrhea but a C. difficile test was negative. She has an appointment with her surgeon Dr. Schmid in [place] on . (2) Chronic diarrhea Is this a current diagnosis for this admission?: Yes Plan: The patient has had chronic diarrhea since her surgery. Her Clostridium difficile was negative. It could be inflammation in the bowel. She is on TPN. I believe her primary care provider Dr. Liat Alcaraz monitors the chemistries. (3) Anemia Qualifiers: Anemia type: iron deficiency Iron deficiency anemia type: inadequate dietary iron intake Qualified Code(s): D50.8 - Other iron deficiency anemias Is this a current diagnosis for this admission?: Yes Plan: With the patient on TPN this is most likely iron deficiency. She has not been on a true oral diet for some time. Check iron studies as well as anemia panel. Her hemoglobin is right on the cusp at 7.9. If hemoglobin drops the patient may need transfusion. (4) Hypokalemia Is this a current diagnosis for this admission?: Yes Plan: Her serum potassium was only 2.7 on the home blood work and 2.3 in the emergency department. She is receiving potassium chloride by intravenous to supplement. Continue to monitor potassium. Her potassium certainly could be adjusted in her TPN at home. (5) Prolonged QT interval syndrome Is this a current diagnosis for this admission?: Yes Plan: Present on previous EKG. Continue to monitor. (6) Bowel perforation Is this a current diagnosis for this admission?: Yes Plan: As noted above there is a history of bowel perforation with surgical intervent ion. Will try to obtain more information from her primary surgeon Dr. Schmid in [facility]. - Time Time Spent with patient: 15-24 minutes Medications reviewed and adjusted accordingly: Yes
[2018-12-11 08:37] LABS: ABSOLUTE RETICS # 0.037 10^6/uL (0.028-0.122); RETICULOCYTE COUNT (AUTO) 1.47 % (0.66-2.85)
[2018-12-11 09:08] LABS: IRON(TIBC) 60.6 ug/dL (37-170)
[2018-12-11] MEDS: FLUTICASONE NASAL SPRAY 50 MCG/SPRY 120 SPRAY/16 GM NAREB SCH (09:19)
[2018-12-11] MEDS: POTASSI CL 20 MEQ/50 ML RIDER 20 MEQ/50 ML RTUPB IV SCH ×2 (09:19→12:04)
[2018-12-11] MEDS: FAMOTIDINE INJ/PF 20 MG/2 ML SDV IV SCH ×2 (09:19→22:15)
[2018-12-11] MEDS: CETIRIZINE 10 MG TABLET PO SCH (09:20)
[2018-12-11] MEDS ORDERED: MAGNESIUM SULFATE/D5W 1 GM/100 ML RTUPB IV ONE (09:30)
[2018-12-11] MEDS ORDERED: POTASSIUM CHLORIDE 20 MEQ/50 ML RTU IV SCH (10:00)
[2018-12-11] MEDS ORDERED: NORMAL SALINE 250 ML IV PRN ×2 (10:02)
[2018-12-11] MEDS: FLUCONAZOLE 100 MG TABLET PO SCH ×2 (10:31→22:15)
[2018-12-11] MEDS ORDERED: NORMAL SALINE 10 ML SDV (AFTER EACH USE) IV PRN (12:00)
[2018-12-11 16:57] LABS: ANION GAP 11 (5-19); BLOOD UREA NITROGEN 38 mg/dL (7-20); CALCIUM 9.7 mg/dL (8.4-10.2); CARBON DIOXIDE 24 mmol/L (22-30); CHLORIDE 109 mmol/L (98-107); GLUCOSE 98 mg/dL (75-110); POTASSIUM 3.2 mmol/L (3.6-5.0); SODIUM 143.9 mmol/L (137-145)
[2018-12-11] MEDS: NORMAL SALINE 10 ML SDV (SCHEDULED) IV SCH (22:16)
--- NOTE | 2018-12-11 22:20 | PDOC PROGRESS REPORT ---
Subjective Progress Note for:: 12/11/18 Subjective:: 73 y.o. F with a PMH Colon Ca, bowel perforation, HTN, anemia. She presented to [facility] with N/V/D. She is currently on TPN due to her inability to tolerate solid foods. The patient was seen this morning on rounds. She endorses persistent n/v/d but states she generally feels better. Denies abdominal pain. (+) BS. Abdomen is S/NT/ND. She remains on TPN. Attempted to contact Dr. Schmid, the patient's surgeon, but he was unavailable. Discussed patient's case with [facility] regarding a potential transfer to their facility, but they are at maximum capacity. [place] and given the complexity of her case, we made an attempt to send her to [facility] for better continuity of care. Ultimately, we were unsuccessful. Plan to continue correction of electrolyte derangements and anemia workup Reason For Visit: SEVERE HYPOKALEMIA WITH PROLONGED QT INTERVAL Physical Exam Vital Signs: Temp Pulse Resp BP Pulse Ox 98.2 F 87 16 166/60 H 98 12/11/18 21:46 12/11/18 21:46 12/11/18 21:46 12/11/18 21:46 12/11/18 21:46 Intake & Output 12/10/18 12/11/18 12/12/18 06:59 06:59 06:59 Intake Total 300 3709 2205 Output Total 700 Balance -400 3709 2205 Weight 48.988 kg 51.9 kg General appearance: PRESENT: well-developed, well-nourished Eye exam: PRESENT: conjunctiva pink Mouth exam: PRESENT: moist, tongue midline Neck exam: PRESENT: full ROM Respiratory exam: PRESENT: clear to auscultation mar, symmetrical, unlabored Cardiovascular exam: PRESENT: RRR Pulses: PRESENT: normal radial pulses, normal dorsalis pedis pul Vascular exam: PRESENT: pallor GI/Abdominal exam: PRESENT: soft, tenderness. ABSENT: distended Rectal exam: PRESENT: deferred Extremities exam: PRESENT: full ROM Musculoskeletal exam: PRESENT: ambulatory, full ROM Neurological exam: PRESENT: alert, awake, oriented to person, oriented to place, oriented to time, oriented to situation Psychiatric exam: PRESENT: appropriate affect Skin exam: PRESENT: dry, intact, pallor Results Laboratory Results: 12/11/18 03:37 12/11/18 16:21 12/11/18 12/11/18 12/11/18 02:00 03:37 03:37 WBC 6.5 RBC 2.59 L Hgb 7.3 L Hct 21.8 L MCV 84 D MCH 28.3 MCHC 33.6 RDW 15.6 H Plt Count 427 Seg Neutrophils % 69.8 Lymphocytes % 21.0 Monocytes % 6.0 Eosinophils % 2.2 Basophils % 1.0 Absolute Neutrophils 4.6 Absolute Lymphocytes 1.4 Absolute Monocytes 0.4 Absolute Eosinophils 0.1 Absolute Basophils 0.1 Retic Count (auto) Absolute Retic VBG pH VBG pCO2 VBG HCO3 VBG Base Excess Sodium 139.4 145.1 H Potassium 4.4 D 2.9 L* D Chloride 103 111 H Carbon Dioxide 22 26 Anion Gap 14 8 BUN 42 H D 49 H Creatinine 1.01 0.77 Est GFR ( Amer) > 60 > 60 Est GFR (Non-Af Amer) 54 L > 60 Glucose 749 H* 148 H Calcium 8.8 9.1 Magnesium 1.9 Iron TIBC % Saturation Ferritin Vitamin B12 Folate Blood Type Antibody Screen 12/11/18 12/11/18 12/11/18 03:37 03:37 03:37 WBC RBC Hgb Hct MCV MCH MCHC RDW Plt Count Seg Neutrophils % Lymphocytes % Monocytes % Eosinophils % Basophils % Absolute Neutrophils Absolute Lymphocytes Absolute Monocytes Absolute Eosinophils Absolute Basophils Retic Count (auto) 1.47 Absolute Retic 0.037 VBG pH 7.41 VBG pCO2 38.1 VBG HCO3 23.7 VBG Base Excess -0.8 Sodium Potassium Chloride Carbon Dioxide Anion Gap BUN Creatinine Est GFR ( Amer) Est GFR (Non-Af Amer) Glucose Calcium Magnesium Iron 60.6 TIBC 196 L % Saturation 31 Ferritin 850.00 H Vitamin B12 640.0 Folate 12.30 Blood Type Antibody Screen 12/11/18 12/11/18 11:06 16:21 WBC RBC Hgb Hct MCV MCH MCHC RDW Plt Count Seg Neutrophils % Lymphocytes % Monocytes % Eosinophils % Basophils % Absolute Neutrophils Absolute Lymphocytes Absolute Monocytes Absolute Eosinophils Absolute Basophils Retic Count (auto) Absolute Retic VBG pH VBG pCO2 VBG HCO3 VBG Base Excess Sodium 143.9 Potassium 3.2 L Chloride 109 H Carbon Dioxide 24 Anion Gap 11 BUN 38 H Creatinine 0.77 Est GFR ( Amer) > 60 Est GFR (Non-Af Amer) > 60 Glucose 98 Calcium 9.7 Magnesium 1.8 Iron TIBC % Saturation Ferritin Vitamin B12 Folate Blood Type A POSITIVE Antibody Screen POSITIVE Status: Imported from PACS Assessment and Plan - Diagnosis (1) Entero-enteric fistula Is this a current diagnosis for this admission?: Yes Plan: History of a bowel perforation following colon cancer diagnosis/treatment. Postoperatively she developed a fistula. She has been on Zosyn for 70+ days. (+) diarrhea but a C. difficile PCR was negative. Attempted to contact patient's surgeon, Dr. Schmid, but he was unavailable (2) Chronic diarrhea Is this a current diagnosis for this admission?: Yes Plan: The patient has had chronic diarrhea since her surgery, she says it is worse when receiving her 12hr TPN infusion. Her Clostridium difficile PCR was negative. Symptomatic management with IVF, no plans for immodium or lomotil (3) Anemia Qualifiers: Anemia type: iron deficiency Iron deficiency anemia type: inadequate dietary iron intake Qualified Code(s): D50.8 - Other iron deficiency anemias Is this a current diagnosis for this admission?: Yes Plan: Worse today Hgb down to 7.3 Transfused 2U PRBC Anemia studies done today - Iron levels normal but TIBC is low Awaiting LDH and haptoglobin Patient was recently on B12 injections for 4 weeks There is likely an element of manutrition associated with the anemia, she has not been on a true oral diet for some time. May need to consult hematology (4) Hypokalemia Is this a current diagnosis for this admission?: Yes Plan: Worse today, K2.9 IV Magnesium and potassium supplementation Discovered that there was no potassium in patient's recent batch of TPN Ordered inpatient TPN to include potassium (5) Malnutrition Qualifiers: Malnutrition type: unspecified type Qualified Code(s): E46 - Unspecified protein-calorie malnutrition Is this a current diagnosis for this admission?: Yes Plan: Secondary to inability to tolerate PO food Currently on TPN Ordered from [facility] pharmacy today Patient can no longer receive outpatient TPN while at [facility] (6) Prolonged QT interval syndrome Is this a current diagnosis for this admission?: Yes Plan: Present on previous EKG. Continue to monitor. - Time Time Spent with patient: 15-24 minutes Medications reviewed and adjusted accordingly: Yes - Inpatient Certification Based on my medical assessment, after consideration of the patient's comorbidities, presenting symptoms, or acuity I expect that the services needed warrant INPATIENT care.: Yes I certify that my determination is in accordance with my understanding of Medicare's requirements for reasonable and necessary INPATIENT services [42 CFR 412.3e].: Yes Medical Necessity: Risk of Complication if Not Cared For in Hospital
[2018-12-11] MEDS: MAGNESIUM SULFATE/D5W 1 GM/100 ML RTUPB IV SCH (22:47)
[2018-12-11] MEDS ORDERED: POTASSI CL 20 MEQ/50 ML RIDER 20 MEQ/50 ML RTUPB IV ONE (23:00)
[2018-12-12] MEDS: MAGNESIUM SULFATE/D5W 1 GM/100 ML RTUPB IV SCH ×2 (00:18→23:46)
[2018-12-12] MEDS: INSULIN REG, HUMAN 100 UNIT/ML 3 ML VIAL (PYX) SUBCUT SCH ×4 (00:21→18:19)
[2018-12-12] MEDS: LOPERAMIDE HCL 2 MG CAPSULE PO PRN ×5 (00:24→21:28)
[2018-12-12 00:44] LABS: HEMATOCRIT 31.8 % (36.0-47.0); MEAN CORPUSCULAR HEMOGLOBIN 28.7 pg (27.0-33.4); MEAN CORPUSCULAR HGB CONC 34.3 g/dL (32.0-36.0); MEAN CORPUSCULAR VOLUME 84 fl (80-97); PLATELET COUNT 395 10^3/uL (150-450); RED CELL DISTRIBUTION WIDTH 15.9 % (11.5-14.0)
[2018-12-12 00:45] LABS: HEMOGLOBIN 10.9 g/dL (12.0-15.5)
[2018-12-12 01:06] LABS: ABSOLUTE LYMPHOCYTES# (MANUAL) 1.5 10^3/uL (0.5-4.7); ABSOLUTE MONOCYTES # (MANUAL) 0.8 10^3/uL (0.1-1.4); ABSOLUTE NEUTROPHILS# (MANUAL) 4.8 10^3/uL (1.7-8.2); BASOPHILS % (MANUAL) 0 % (0-2); EOSINOPHILS % (MANUAL) 0 % (0-6); LYMPHOCYTES % (MANUAL) 21 % (13-45); MONOCYTES % (MANUAL) 11 % (3-13); SEGMENTED NEUTROPHILS % (MAN) 68 % (42-78); TOTAL CELLS COUNTED 100
[2018-12-12 01:07] LABS: ANISOCYTOSIS 1+; HYPOCHROMASIA 1+; PLATELET COMMENT ADEQUATE
[2018-12-12] MEDS: ONDANSETRON HCL INJ/PF 4 MG/2 ML SDV IV PRN ×2 (05:02→16:04)
[2018-12-12] MEDS: HEPARIN SOD (PORCINE) 5,000 UNIT/ML 1 ML SYRINGE SUBCUT SCH ×3 (05:02→21:11)
[2018-12-12] MEDS: PIPERACILLIN SODIUM/TAZOBACTAM 3.375 GM in NORMAL SALINE 100 ML IV SCH ×3 (05:02→21:12)
[2018-12-12 05:56] LABS: ABSOLUTE BASOPHILS # (AUTO) 0.1 10^3/uL (0.0-0.2); ABSOLUTE EOSINOPHILS # (AUTO) 0.2 10^3/uL (0.0-0.6); ABSOLUTE LYMPHOCYTES (AUTO) 1.6 10^3/uL (0.5-4.7); ABSOLUTE MONOCYTES (AUTO) 0.6 10^3/uL (0.1-1.4); BASOPHILS % (AUTO) 1.3 % (0-2); EOSINOPHILS % (AUTO) 3.4 % (0-6); HEMATOCRIT 32.6 % (36.0-47.0); HEMOGLOBIN 11.2 g/dL (12.0-15.5); LYMPHOCYTES % (AUTO) 25.2 % (13-45); MEAN CORPUSCULAR HEMOGLOBIN 28.7 pg (27.0-33.4); MEAN CORPUSCULAR HGB CONC 34.3 g/dL (32.0-36.0); MEAN CORPUSCULAR VOLUME 84 fl (80-97); PLATELET COUNT 396 10^3/uL (150-450); RED BLOOD COUNT 3.89 10^6/uL (3.72-5.28); RED CELL DISTRIBUTION WIDTH 16.4 % (11.5-14.0); SEGMENTED NEUTROPHILS % (AUTO) 61.1 % (42-78); TOTAL CELLS COUNTED % (AUTO) 100 %; WHITE BLOOD COUNT 6.5 10^3/uL (4.0-10.5)
[2018-12-12 06:08] LABS: ANION GAP 13 (5-19); BLOOD UREA NITROGEN 24 mg/dL (7-20); CALCIUM 9.3 mg/dL (8.4-10.2); CARBON DIOXIDE 21 mmol/L (22-30); CHLORIDE 110 mmol/L (98-107); GLUCOSE 101 mg/dL (75-110); SODIUM 143.9 mmol/L (137-145)
[2018-12-12 06:16] LABS: POTASSIUM 2.8 mmol/L (3.6-5.0)
[2018-12-12] MEDS ORDERED: POTASSIUM CHLORIDE 20 MEQ/50 ML RTU IV SCH (06:45)
[2018-12-12] MEDS ORDERED: DEXTROSE 10%-WATER 1,000 ML IV PRN (08:00)
[2018-12-12] MEDS: FLUCONAZOLE 100 MG TABLET PO SCH ×2 (09:21→21:12)
[2018-12-12] MEDS: FAMOTIDINE INJ/PF 20 MG/2 ML SDV IV SCH (09:22)
[2018-12-12] MEDS: FLUTICASONE NASAL SPRAY 50 MCG/SPRY 120 SPRAY/16 GM NAREB SCH (09:23)
[2018-12-12] MEDS: CETIRIZINE 10 MG TABLET PO SCH (09:23)
[2018-12-12] MEDS: NORMAL SALINE 10 ML SDV (SCHEDULED) IV SCH ×2 (09:23→21:11)
[2018-12-12] MEDS ORDERED: HYDRALAZINE HCL INJ/PF 20 MG/1 ML SDV IV PRN (09:56)
[2018-12-12] MEDS ORDERED: METOPROLOL TARTRATE PF/INJ 5 MG/5 ML SDV IV PRN (09:56)
[2018-12-12] MEDS: HYDROCHLOROTHIAZIDE 12.5 MG TABLET PO SCH (11:59)
[2018-12-12] MEDS: POTASSI CL 20 MEQ/50 ML RIDER 20 MEQ/50 ML RTUPB IV SCH ×2 (11:59→21:13)
[2018-12-12] MEDS: VALSARTAN 80 MG TABLET PO SCH (11:59)
[2018-12-12] MEDS: AMINO ACIDS 5 %/DEXTROSE 20 % 1,000 ML IV PRN (16:05)
[2018-12-12 16:36] LABS: ANION GAP 11 (5-19); BLOOD UREA NITROGEN 15 mg/dL (7-20); CALCIUM 9.5 mg/dL (8.4-10.2); CARBON DIOXIDE 22 mmol/L (22-30); CHLORIDE 109 mmol/L (98-107); GLUCOSE 89 mg/dL (75-110); POTASSIUM 3.3 mmol/L (3.6-5.0)
--- NOTE | 2018-12-12 19:16 | Physician Advisory Note ---
Physician Advisor ProgressNote .: Pursuant to the plan for [facility], I have reviewed the medical record for this patient. Physician Advisor Statement: Please document, as possible: 1. Cause of chronic diarrhea: adverse effect of TPN? adverse effect of Zosyn? related to fistula? ...? 2. Severity of malnutrition (mild? mod? sev?) & supporting evidence for this dx (mild/mod/sev loss of muscle mass? mild/mod/sev loss of subQ fat? amt wt loss in past 1,3,or 6mo? ...) 3. Whether or not you believe pt has acute Hypernatremia that is significant. Thanks! CK
--- NOTE | 2018-12-12 22:25 | PDOC PROGRESS REPORT ---
Subjective Progress Note for:: 12/12/18 Subjective:: 73 y.o. F with a H Colon Ca, bowel perforation, HTN, anemia. She presented to [facility] with N/V/D. She is currently on TPN due to her inability to tolerate solid foods. The patient was seen this morning on rounds. She DENIES v/d but endorses nausea, states she generally feels better. Patient is able to tolerate full liquid diet since yesterday evening. Denies abdominal pain. (+) BS. Abdomen is S/NT/ND. She remains on TPN. Plan to continue correction of electrolyte derangements and anemia workup Reason For Visit: SEVERE HYPOKALEMIA WITH PROLONGED QT INTERVAL Physical Exam Vital Signs: Temp Pulse Resp BP Pulse Ox 97.9 F 91 20 159/70 H 95 12/12/18 19:23 12/12/18 19:34 12/12/18 16:21 12/12/18 16:21 12/12/18 19:23 Intake & Output 12/11/18 12/12/18 12/13/18 06:59 06:59 06:59 Intake Total 3709 2955 1108 Output Total 650 1400 Balance 3709 2305 -292 Weight 51.9 kg 55.3 kg General appearance: PRESENT: well-developed, well-nourished Eye exam: PRESENT: conjunctiva pink, PERRLA Mouth exam: PRESENT: moist, tongue midline Neck exam: PRESENT: full ROM Respiratory exam: PRESENT: clear to auscultation mar, symmetrical, unlabored Cardiovascular exam: PRESENT: RRR Pulses: PRESENT: normal radial pulses, +1 pedal pulses bilateral Vascular exam: PRESENT: pallor GI/Abdominal exam: PRESENT: soft, tenderness - mild. ABSENT: distended Rectal exam: PRESENT: deferred Extremities exam: PRESENT: full ROM Musculoskeletal exam: PRESENT: ambulatory, full ROM, normal inspection Neurological exam: PRESENT: alert, awake, oriented to person, oriented to place, oriented to time, oriented to situation Psychiatric exam: PRESENT: appropriate affect Skin exam: PRESENT: dry, intact, pallor Results Laboratory Results: 12/12/18 05:35 12/12/18 16:00 12/12/18 12/12/18 12/12/18 00:17 05:35 05:35 WBC 7.0 6.5 RBC 3.80 3.89 Hgb 10.9 L D 11.2 L Hct 31.8 L 32.6 L MCV 84 84 MCH 28.7 28.7 MCHC 34.3 34.3 RDW 15.9 H 16.4 H Plt Count 395 396 Seg Neutrophils % Not Reportable 61.1 Lymphocytes % Not Reportable 25.2 Monocytes % Not Reportable 9.0 Eosinophils % Not Reportable 3.4 Basophils % Not Reportable 1.3 Absolute Neutrophils Not Reportable 4.0 Absolute Lymphocytes Not Reportable 1.6 Absolute Monocytes Not Reportable 0.6 Absolute Eosinophils Not Reportable 0.2 Absolute Basophils Not Reportable 0.1 Sodium 143.9 Potassium 2.8 L* Chloride 110 H Carbon Dioxide 21 L Anion Gap 13 BUN 24 H Creatinine 0.75 Est GFR ( Amer) > 60 Est GFR (Non-Af Amer) > 60 Glucose 101 Calcium 9.3 Phosphorus Magnesium 2.1 Stool Occult Blood 12/12/18 12/12/18 12/12/18 05:35 08:21 16:00 WBC RBC Hgb Hct MCV MCH MCHC RDW Plt Count Seg Neutrophils % Lymphocytes % Monocytes % Eosinophils % Basophils % Absolute Neutrophils Absolute Lymphocytes Absolute Monocytes Absolute Eosinophils Absolute Basophils Sodium 142.0 Potassium 3.3 L Chloride 109 H Carbon Dioxide 22 Anion Gap 11 BUN 15 Creatinine 0.69 Est GFR ( Amer) > 60 Est GFR (Non-Af Amer) > 60 Glucose 89 Calcium 9.5 Phosphorus 4.0 4.0 Magnesium 1.5 L Stool Occult Blood NEGATIVE Status: Imported from PACS Assessment and Plan - Diagnosis (1) Entero-enteric fistula Is this a current diagnosis for this admission?: Yes (2) Chronic diarrhea Is this a current diagnosis for this admission?: Yes (3) Anemia Qualifiers: Anemia type: iron deficiency Iron deficiency anemia type: inadequate dietary iron intake Qualified Code(s): D50.8 - Other iron deficiency anemias Is this a current diagnosis for this admission?: Yes Plan: Improving today Hgb up to 10.6 Transfused 2U PRBC Anemia studies done today - Iron levels normal but TIBC is low Awaiting haptoglobin, LDH is normal Patient was recently on B12 injections for 4 weeks, currently her b12 and folate levels are normal There is likely an element of manutrition associated with the anemia, she has not been on a true oral diet for some time. May need to consult hematology (4) Hypokalemia Is this a current diagnosis for this admission?: Yes Plan: Worse today, K2.9 IV Magnesium and potassium supplementation Discovered that there was no potassium in patient's recent batch of TPN Ordered inpatient TPN to include potassium, will readjust if levels remain low (5) Malnutrition Qualifiers: Malnutrition type: unspecified type Qualified Code(s): E46 - Unspecified protein-calorie malnutrition Is this a current diagnosis for this admission?: Yes Plan: Secondary to inability to tolerate PO food Currently on TPN Ordered from [facility] pharmacy today Patient can no longer receive outpatient TPN while at [facility] will consult dietary for recommendations (6) Prolonged QT interval syndrome Is this a current diagnosis for this admission?: Yes Plan: Present on previous EKG. Continue to monitor. - Time Time Spent with patient: 15-24 minutes Medications reviewed and adjusted accordingly: Yes Anticipated discharge: Home - Inpatient Certification Based on my medical assessment, after consideration of the patient's comorbidities, presenting symptoms, or acuity I expect that the services needed warrant INPATIENT care.: Yes I certify that my determination is in accordance with my understanding of Medicare's requirements for reasonable and necessary INPATIENT services [42 CFR 412.3e].: Yes Medical Necessity: Risk of Complication if Not Cared For in Hospital
[2018-12-13] MEDS: INSULIN REG, HUMAN 100 UNIT/ML 3 ML VIAL (PYX) SUBCUT SCH ×3 (00:04→11:21)
[2018-12-13] MEDS: MAGNESIUM SULFATE/D5W 1 GM/100 ML RTUPB IV SCH (01:50)
[2018-12-13] MEDS: POTASSI CL 20 MEQ/50 ML RIDER 20 MEQ/50 ML RTUPB IV SCH ×2 (01:53→04:47)
[2018-12-13] MEDS: PIPERACILLIN SODIUM/TAZOBACTAM 3.375 GM in NORMAL SALINE 100 ML IV SCH ×2 (05:01→13:41)
[2018-12-13] MEDS: HEPARIN SOD (PORCINE) 5,000 UNIT/ML 1 ML SYRINGE SUBCUT SCH ×2 (05:02→13:41)
[2018-12-13] MEDS: ONDANSETRON HCL INJ/PF 4 MG/2 ML SDV IV PRN ×2 (06:10→11:21)
[2018-12-13] MEDS: AMINO ACIDS 5 %/DEXTROSE 20 % 1,000 ML IV PRN (08:05)
[2018-12-13] MEDS: FLUCONAZOLE 100 MG TABLET PO SCH (09:10)
[2018-12-13] MEDS: VALSARTAN 80 MG TABLET PO SCH (09:11)
[2018-12-13] MEDS: FLUTICASONE NASAL SPRAY 50 MCG/SPRY 120 SPRAY/16 GM NAREB SCH (09:11)
[2018-12-13] MEDS: HYDROCHLOROTHIAZIDE 12.5 MG TABLET PO SCH (09:11)
[2018-12-13] MEDS: CETIRIZINE 10 MG TABLET PO SCH (09:11)
[2018-12-13] MEDS: NORMAL SALINE 10 ML SDV (SCHEDULED) IV SCH (09:12)
[2018-12-13 10:41] LABS: ABSOLUTE EOSINOPHILS # (AUTO) 0.1 10^3/uL (0.0-0.6); ABSOLUTE LYMPHOCYTES (AUTO) 1.3 10^3/uL (0.5-4.7); ABSOLUTE MONOCYTES (AUTO) 0.6 10^3/uL (0.1-1.4); ABSOLUTE NEUT (AUTO) 4.8 10^3/uL (1.7-8.2); BASOPHILS % (AUTO) 0.7 % (0-2); EOSINOPHILS % (AUTO) 1.6 % (0-6); HEMATOCRIT 35.2 % (36.0-47.0); HEMOGLOBIN 11.9 g/dL (12.0-15.5); LYMPHOCYTES % (AUTO) 19.5 % (13-45); MEAN CORPUSCULAR HEMOGLOBIN 28.5 pg (27.0-33.4); MEAN CORPUSCULAR HGB CONC 33.7 g/dL (32.0-36.0); MEAN CORPUSCULAR VOLUME 85 fl (80-97); MONOCYTES % (AUTO) 8.2 % (3-13); PLATELET COUNT 418 10^3/uL (150-450); RED BLOOD COUNT 4.16 10^6/uL (3.72-5.28); RED CELL DISTRIBUTION WIDTH 15.8 % (11.5-14.0); TOTAL CELLS COUNTED % (AUTO) 100 %; WHITE BLOOD COUNT 6.9 10^3/uL (4.0-10.5)
[2018-12-13 10:56] LABS: ANION GAP 11 (5-19); BLOOD UREA NITROGEN 19 mg/dL (7-20); CALCIUM 10.4 mg/dL (8.4-10.2); CARBON DIOXIDE 25 mmol/L (22-30); CHLORIDE 106 mmol/L (98-107); GLUCOSE 185 mg/dL (75-110); POTASSIUM 3.7 mmol/L (3.6-5.0); SODIUM 141.7 mmol/L (137-145)
[2018-12-13] MEDS: LOPERAMIDE HCL 2 MG CAPSULE PO PRN (11:20)
[2018-12-13] MEDS ORDERED: PROMETHAZINE HCL 25 MG TABLET PO PRN (12:34)
[2018-12-13] MEDS ORDERED: ONDANSETRON 4 MG TAB.RAPDIS PO PRN (12:34)
[2018-12-13 17:22] VITALS: BP 146/63
[2018-12-16] MEDS ORDERED: FAT EMULSIONS 250 ML IV SCH (10:00)
--- NOTE | 2018-12-24 04:51 | PDOC DISCHARGE SUMMARY ---
General - Admit/Disc Date/PCP Admission Date/Primary Care Provider: 12/10/18 02:24 Discharge Date: 12/13/18 - Discharge Diagnosis (1) Entero-enteric fistula Is this a current diagnosis for this admission?: Yes Summary: History of a bowel perforation following colon cancer diagnosis/treatment. Postoperatively she developed a fistula. She has been on Zosyn for 70+ days. (+) diarrhea but a C. difficile PCR was negative. (2) Chronic diarrhea Is this a current diagnosis for this admission?: Yes Summary: Acute on chronic The patient has had chronic diarrhea since her GI surgery, she says it is worse when receiving her 12hr TPN infusion. Presented to [facility] with worsening diarrhea, coupled with N/V Her Clostridium difficile PCR was negative. Symptomatic management while inpatient was rehydration with IVF, no immodium or lomotil Within 4 days of hospitalization, the patient reported that her diarrhea had resolved (3) Anemia Is this a current diagnosis for this admission?: Yes Summary: Anemia of chronic disease Hgb dropped to 7.3 requiring transfusion, was up to 10.6 prior to discharge Anemia studies done today - Iron levels normal but TIBC is low Patient was recently on B12 injections for 4 weeks, her b12 and folate levels were normal There is likely an element of manutrition associated with the anemia, she has not been on a true oral diet for some time. (4) Hypokalemia Is this a current diagnosis for this admission?: Yes Summary: Discovered that there was no potassium in patient's recent batch of home TPN Ordered inpatient TPN to include potassium Provided IV Magnesium and potassium supplementation as needed (5) Malnutrition Is this a current diagnosis for this admission?: Yes Summary: Secondary to inability to tolerate PO food and chronically on TPN Adjustments made to TPN as needed, but unfortunately for this patient, she is chronically malnourished Patient has a follow up appt. with her surgeon in [place] (Dr. Schmid) to discuss her treatment plan (continue TPN vs. hemicolectomy w/colostomy) (6) Prolonged QT interval syndrome Is this a current diagnosis for this admission?: Yes Summary: Present on previous EKG. Unclear etiology Avoided medications that would further prolong the QT Daily EKGs were done to monitor her QTc - Additional Information Resuscitation Status: Full Code Discharge Diet: Full Liquids Discharge Activity: Activity As Tolerated Prescriptions: Ondansetron [Zofran Odt 4 mg Tablet] 8 mg PO Q6HP PRN #20 tab.rapdis PRN Reason: Promethazine HCl [Phenergan 25 mg Tablet] 12.5 mg PO Q4HP PRN #20 tablet PRN Reason: Home Medications: Valsartan/Hydrochlorothiazide [Valsartan-Hctz 80-12.5 mg Tab] 1 each PO DAILY 09/25/18 Cetirizine HCl [Zyrtec 10 mg Tablet] 10 mg PO DAILY 12/10/18 Fluconazole [Diflucan] 200 mg PO Q12 12/10/18 Fluticasone Propionate [Flonase Nasal Guttenberg 50 Mcg/Guttenberg 16 gm] 1 sprays NAREB DAILY 12/10/18 Insulin NPH Human Isophane [Humulin N Kwikpen] 14 unit SQ DAILY 12/10/18 Loperamide HCl [Imodium 2 mg Capsule] 2 mg PO QIDP PRN 12/10/18 Tpn 0 ml IV ASDIR PRN 12/10/18 Loperamide HCl [Imodium 2 mg Capsule] 2 mg PO Q4HP PRN capsule 12/13/18 Ondansetron [Zofran Odt 4 mg Tablet] 8 mg PO Q6HP PRN #20 tab.rapdis 12/13/18 Piperacillin Sodium/Tazobactam [Zosyn Inj 3.375 gm Vial] 3.375 gm IV Q8 vial 12/13/18 Promethazine HCl [Phenergan 25 mg Tablet] 12.5 mg PO Q4HP PRN #20 tablet 12/13/18 Temazepam [Restoril 7.5 mg Capsule] 7.5 mg PO HSP PRN capsule 12/13/18 History of Present Illness History of Present Illness: SANDY WILL is a 73 year old female who presented to the emergency room with a history of a low potassium on lab work performed earlier today. She was instructed by her home health nurse to come to the emergency room for treatment of a low potassium. Her potassium was 2.7 on her laboratory results and she admits a 2 1/2 month history of painless, moderate volume, watery diarrhea stools 5-10 times daily since her colon surgery (colon cancer) on 09/26/2018. She states that her bowels move with diarrhea every time she gets a TPN infusion or has any oral intake. She additionally complains of moderate generalized fatigue and weakness. She has not identified any additional aggravating or ameliorating factors for her diarrhea and low potassium. She denies prior similar episodes. She does admit that she has been on Zosyn IV since her surgery on September 26, 2018. In the emergency room her potassium was found to be 2.3 and she was noted to have a slightly prolonged QT interval of 488 however this is essentially unchanged from a prior EKG at a time when she was not hypokalemic. Due to her significant hypokalemia patient is admitted to the hospital for further evaluation and treatment with potassium correction and evaluation of her diarrhea. Hospital Course Hospital Course: 73 y.o. F with a H Colon Ca, bowel perforation, HTN, anemia. She presented to [facility] with N/V/D. She is chronically on TPN due to her inability to tolerate solid foods. Plan as above. On hospital day #5 the patient was discharged home with prescriptions for zofran and phenergan. Her diarrhea has improved. The patient was no longer vomiting, although she did endorse nausea. Physical Exam Vital Signs: Temp Pulse Resp BP Pulse Ox 98.0 F 89 18 146/63 H 95 12/13/18 17:21 12/13/18 17:21 12/13/18 17:21 12/13/18 17:21 12/13/18 17:21 General appearance: PRESENT: no acute distress, well-developed, well-nourished Head exam: PRESENT: atraumatic, normocephalic Eye exam: PRESENT: conjunctiva pale, EOMI, PERRLA. ABSENT: scleral icterus Ear exam: PRESENT: normal external ear exam Mouth exam: PRESENT: moist, tongue midline Neck exam: ABSENT: carotid bruit, JVD, lymphadenopathy, thyromegaly Respiratory exam: PRESENT: clear to auscultation mar, symmetrical, unlabored. ABSENT: rales, rhonchi, wheezes Cardiovascular exam: PRESENT: RRR, other - prolonged QT. ABSENT: diastolic murmur, rubs, systolic murmur Pulses: PRESENT: normal radial pulses, normal dorsalis pedis pul Vascular exam: PRESENT: normal capillary refill GI/Abdominal exam: PRESENT: normal bowel sounds, soft. ABSENT: distended, guarding, mass, organolmegaly, rebound, tenderness Rectal exam: PRESENT: deferred Extremities exam: PRESENT: full ROM. ABSENT: calf tenderness, clubbing, pedal edema Neurological exam: PRESENT: alert, awake, oriented to person, oriented to place, oriented to time, oriented to situation. ABSENT: motor sensory deficit Psychiatric exam: PRESENT: appropriate affect, normal mood Skin exam: PRESENT: dry, intact, warm, other - OLD ILEOSTOMY SITE REMAINS OPEN. THERE IS NO LONGER A STOMA PRESENT. MILD YELLOW DRAINAGE FROM THE WOUND CLOSURE. PATIENT STATES THIS IS A CHRONIC ISSUE ADDRESSED BY HER SURGEON.. ABSENT: cyanosis, rash Results Laboratory Results: 12/13/18 09:52 12/13/18 09:52 Status: Imported from PACS Qualifiers - * PATIENT BEING DISCHARGED WITH ANY OF THE FOLLOWING DIAGNOSIS: No Plan Discharge Plan: FOLLOW UP WITH SURGEON AND PCP. NEEDED PHENERGAN OR ZOFRAN. Time Spent: Greater than 30 Minutes
== END 2018-12-13 18:13 | disposition home health service (06) | DRG 641 ==
LOC: ER 21:53 → EH 12-10 02:24 → 3W 12-10 17:42
PROVIDERS: ADMIT Emergency Medicine; ATTEND Emergency Medicine
PROC: 3E0336Z Introduction of Nutritional Substance into Peripheral Vein, Percutaneous Approach (ICD-10-PCS; 2018-12-10)
PROC: 30233N1 Transfusion of Nonautologous Red Blood Cells into Peripheral Vein, Percutaneous Approach (ICD-10-PCS; principal; 2018-12-11)
DX: E87.6 Hypokalemia (principal); E46 Unspecified protein-calorie malnutrition; I45.81 Long QT syndrome; I10 Essential (primary) hypertension; K44.9 Diaphragmatic hernia without obstruction or gangrene; K52.9 Noninfective gastroenteritis and colitis, unspecified; D50.8 Other iron deficiency anemias; Z68.20 Body mass index [BMI] 20.0-20.9, adult; D63.8 Anemia in other chronic diseases classified elsewhere; Z85.038 Personal history of other malignant neoplasm of large intestine; Z90.49 Acquired absence of other specified parts of digestive tract; Z90.710 Acquired absence of both cervix and uterus; Z82.49 Family history of ischemic heart disease and other diseases of the circulatory system; Z83.3 Family history of diabetes mellitus; Z79.899 Other long term (current) drug therapy; Z79.890 Hormone replacement therapy; Z88.6 Allergy status to analgesic agent; Z88.2 Allergy status to sulfonamides
CPT/HCPCS: 36415; 36430; 36592; 80048; 80053; 82272; 82607; 82728; 82746; 82803; 82962; 83010; 83540; 83550; 83605; 83615; 83735; 84100; 84439; 84443; 84481; 85025; 85045; 86850; 86870; 86900; 86901; 86902; 86920; 86922; 87493; 93005; 93010; 96365; 96367; 96375; 99284; J1642; J1644; J1815; J2405; J2543; J3370; J3475; J3480; J3490; P9016; S0028

== ENCOUNTER 2019-02-10 10:18 | Emergency (ER) | payer MEDICARE, BC ==
--- NOTE | 2019-02-10 11:51 | RADIOLOGY REPORT (SQ) ---
EXAM DESCRIPTION: CHEST SINGLE VIEW COMPLETED DATE/TIME: 02/10/2019 11:39 am REASON FOR STUDY: AMS COMPARISON: 10/04/2018. EXAM PARAMETERS: NUMBER OF VIEWS: One view. TECHNIQUE: Single frontal radiographic view of the chest acquired. RADIATION DOSE: NA LIMITATIONS: None. FINDINGS: LUNGS AND PLEURA: No opacities, masses or pneumothorax. No pleural effusion. MEDIASTINUM AND HILAR STRUCTURES: No masses. Contour normal. HEART AND VASCULAR STRUCTURES: Heart upper limits of normal in size. Normal vasculature. BONES: No acute findings. HARDWARE: PICC line. OTHER: No other significant finding. IMPRESSION: NO ACUTE RADIOGRAPHIC FINDING IN THE CHEST. TECHNICAL DOCUMENTATION: JOB ID: [id number] [employer]- All Rights Reserved Reading location - IP/workstation name: [email or web address]
--- NOTE | 2019-02-10 11:52 | ER Document Report ---
ED Dizziness/Weakness - General Chief Complaint: General Weakness Stated Complaint: WEAKNESS Time Seen by Provider: 02/10/19 10:44 Primary Care Provider: STEPHANIA ADAMSON MD [NO LOCAL MD] - Follow up as needed Notes: 73-year-old female with multiple comorbidities to include IDDM, hypertension, GERD, on peritoneal dialysis, currently on TPN for nutrition presents to the emergency department for altered mental status this morning that is since resolved upon arrival. She was brought in by EMS. Her complaints were acute weakness, nausea, vomiting. Per the granddaughter who is a caregiver she had a T-max of 102, was not talking. Patient has been in and out of the hospital since September and had a recent surgery for adhesions requiring transferred to [facility]. She was also septic. Blood glucose in the field 132. Of note, patient has a pressure injury on her coccyx and also a purulent wound from a fi stula that is suprapubic. She said she does have abdominal tenderness, denies diarrhea. She initially arrived tachycardic at 125 but is currently in normal sinus rhythm. TRAVEL OUTSIDE OF THE [place] IN LAST 30 DAYS: No - Related Data Allergies/Adverse Reactions: Sulfa (Sulfonamide Antibiotics) Allergy (Verified 04/03/17 09:06) Generalized Itching codeine [Codeine] Adverse Reaction (Mild, Verified 04/03/17 09:06) Nausea Past Medical History - Social History Smoking Status: Unknown if Ever Smoked Chew tobacco use (# tins/day): No Frequency of alcohol use: None Drug Abuse: None Family History: CAD, DM, Hypertension. denies: Malignancy Patient has suicidal ideation: No Patient has homicidal ideation: No - Past Medical History Cardiac Medical History: Reports: Hx Hypertension Denies: Hx Coronary Artery Disease, Hx Heart Attack Pulmonary Medical History: Denies: Hx Asthma, Hx Bronchitis, Hx COPD, Hx Pneumonia Neurological Medical History: Denies: Hx Cerebrovascular Accident, Hx Seizures Endocrine Medical History: Reports: Hx Diabetes Mellitus Type 2. Denies: Hx Diabetes Mellitus Type 1, Hx Hyperthyroidism, Hx Hypothyroidism Renal/ Medical History: Reports: Hx Peritoneal Dialysis Malignancy Medical History: Reports: Hx Colorectal Cancer GI Medical History: Reports: Hx Hiatal Hernia. Denies: Hx Cirrhosis, Hx Hepatitis, Hx Ulcer Musculoskeletal Medical History: Denies Hx Arthritis, Denies Hx Gout Skin Medical History: Denies Hx Eczema, Denies Hx Psoriasis Psychiatric Medical History: Denies: Hx Depression Infectious Medical History: Denies: Hx Hepatitis Past Surgical History: Reports: Hx Abdominal Surgery, Hx Appendectomy, Hx Cholecystectomy, Hx Hysterectomy, Other - Colon resection, skin biopsy. Denies: Hx Mastectomy, Hx Open Heart Surgery, Hx Pacemaker - Immunizations Hx Diphtheria, Pertussis, Tetanus Vaccination: Yes Hx Pneumococcal Vaccination: 06/24/14 Review of Systems - Review of Systems Constitutional: See HPI Cardiovascular: See HPI Respiratory: See HPI Gastrointestinal: See HPI Genitourinary: See HPI Musculoskeletal: See HPI Neurological/Psychological: See HPI Physical Exam - Vital signs Vitals: Temp Resp BP Pulse Ox 100.8 F H 16 118/51 L 94 02/10/19 10:23 02/10/19 10:23 02/10/19 10:23 02/10/19 10:23 - Notes Notes: PHYSICAL EXAMINATION: Reviewed vital signs and charting by RN GENERAL: Well-appearing, cachectic and in no acute distress. HEAD: Atraumatic, normocephalic. EYES: Pupils are 3 mm and equal/round, extraocular movements intact, sclera anicteric, conjunctiva are normal. LUNGS: Breath sounds present, equal, and clear to auscultation bilaterally. No wheezes, rales, or rhonchi. HEART: Regular rate and rhythm without murmurs, rubs, or gallops. 2+ peripheral pulses. Normal capillary refill. ABDOMEN: Soft, generalized tenderness, nondistended. Normoactive bowel sounds. No guarding, no rebound. No masses appreciated. BACK: Normal contour, no midline tenderness. Rectal exam deferred. PELVC: Deferred. EXTREMITIES: Normal range of motion, no pitting or edema. No cyanosis. SKIN: Warm, dry, normal turgor, no rashes or lesions noted. Course - Re-evaluation Re-evalutation: 02/10/19 11:52 Patient is well-appearing but weak, nontoxic in appearance. She did have a period this morning to where she was not speaking. She is back to her baseline. Lab work ordered. 02/10/19 15:35 Lab work is finally completed. CBC unremarkable other than anemia. CMP did not show any electrolyte derangements or liver biochemical abnormalities. Patient required IV fluids in order to get a urine sample and urine just resulted and she does have a urinary tract infection. This could potentially explain her altered mental status from this morning. She is currently at her baseline, alert and oriented x4, most recent blood pressure 111/55, heart rate 82, SPO2 96 % on room air breathing comfortably. I will give her 1 g of ceftriaxone here in the ER and sent her home with a prescription for Keflex for 7 days. She is stable for discharge - Vital Signs Vital signs: Temp Pulse Resp BP Pulse Ox 97.6 F 16 105/55 L 96 02/10/19 16:58 02/10/19 16:00 02/10/19 16:00 02/10/19 16:00 - Laboratory Result Diagrams: 02/10/19 12:45 02/10/19 12:45 Laboratory results interpreted by me: 02/10/19 02/10/19 02/10/19 12:45 12:45 14:40 RBC 2.95 L Hgb 8.2 L Hct 24.4 L RDW 15.3 H Seg Neutrophils % 82.6 H Lymphocytes % 11.3 L Sodium 146.3 H Chloride 109 H BUN 39 H Est GFR (Non-Af Amer) 58 L Glucose 159 H Direct Bilirubin 0.9 H AST 100 H ALT 119 H Alkaline Phosphatase 747 H Total Protein 5.8 L Albumin 2.7 L Ur Leukocyte Esterase MODERATE H Urine Ascorbic Acid 40 H Discharge - Discharge Clinical Impression: Weakness Condition: Stable Disposition: HOME, SELF-CARE Additional Instructions: You were seen in the emergency department this afternoon for weakness and for a urinary tract infection. You were given a dose of Rocephin 1 g IV while you are here in the department. I am sending you home with a prescription for Keflex 500 mg that he will take for times per day for 7 days. Please follow-up with your primary doctor in the next 24 to 48 hours. Please take all the antibiotics as directed even if your symptoms have improved. Return to emergency room if you develop fever >101F, persistent vomiting, become lethargic, have severe pain in your sides, or any other symptoms that are concerning to you. Prescriptions: RX: Cephalexin Monohydrate [Keflex 500 mg Capsule] 500 mg PO Q6H 7 Days capsule Forms: Return to School Referrals: STEPHANIA ADAMSON MD [NO LOCAL MD] - Follow up as needed
[2019-02-10 13:10] LABS: ABSOLUTE LYMPHOCYTES (AUTO) 0.9 10^3/uL (0.5-4.7); ABSOLUTE MONOCYTES (AUTO) 0.4 10^3/uL (0.1-1.4); ABSOLUTE NEUT (AUTO) 6.3 10^3/uL (1.7-8.2); BASOPHILS % (AUTO) 0.4 % (0-2); EOSINOPHILS % (AUTO) 0.1 % (0-6); HEMATOCRIT 24.4 % (36.0-47.0); HEMOGLOBIN 8.2 g/dL (12.0-15.5); LYMPHOCYTES % (AUTO) 11.3 % (13-45); MEAN CORPUSCULAR HEMOGLOBIN 27.8 pg (27.0-33.4); MEAN CORPUSCULAR HGB CONC 33.5 g/dL (32.0-36.0); MEAN CORPUSCULAR VOLUME 83 fl (80-97); MONOCYTES % (AUTO) 5.6 % (3-13); PLATELET COUNT 198 10^3/uL (150-450); RED BLOOD COUNT 2.95 10^6/uL (3.72-5.28); RED CELL DISTRIBUTION WIDTH 15.3 % (11.5-14.0); SEGMENTED NEUTROPHILS % (AUTO) 82.6 % (42-78); TOTAL CELLS COUNTED % (AUTO) 100 %; WHITE BLOOD COUNT 7.6 10^3/uL (4.0-10.5)
[2019-02-10 13:16] LABS: VENOUS BLOOD BASE EXCESS 0.7 mmol/L; VENOUS BLOOD HCO3 25.1 mmol/L (20-32); VENOUS BLOOD PCO2 39.5 mmHg (35-63); VENOUS BLOOD PH 7.42 (7.30-7.42)
[2019-02-10 13:28] LABS: ALANINE AMINOTRANSFERASE 119 U/L (9-52); ALBUMIN 2.7 g/dL (3.5-5.0); ALKALINE PHOSPHATASE 747 U/L (38-126); ANION GAP 11 (5-19); ASPARTATE AMINO TRANSFERASE 100 U/L (14-36); BILIRUBIN,DIRECT 0.9 mg/dL (0.0-0.4); BILIRUBIN,TOTAL 1.3 mg/dL (0.2-1.3); BLOOD UREA NITROGEN 39 mg/dL (7-20); CALCIUM 8.8 mg/dL (8.4-10.2); CARBON DIOXIDE 26 mmol/L (22-30); CHLORIDE 109 mmol/L (98-107); GLUCOSE 159 mg/dL (75-110); POTASSIUM 4.4 mmol/L (3.6-5.0); SODIUM 146.3 mmol/L (137-145); TOTAL PROTEIN 5.8 g/dL (6.3-8.2)
[2019-02-10] MEDS ORDERED: NORMAL SALINE 1000 ML 1,000 ML IV ONE (14:05)
[2019-02-10] MEDS ORDERED: DIPHENHYDRAMINE HCL 50 MG/ML VIAL IV ONE (15:03)
[2019-02-10 15:20] LABS: APPEARANCE,URINE SLIGHTLY-CLOUDY; BILIRUBIN,URINE NEGATIVE (NEGATIVE); COLOR,URINE YELLOW; GLUCOSE, URINE NEGATIVE (NEGATIVE); KETONES,URINE NEGATIVE (NEGATIVE); LEUKOCYTE ESTERASE,URINE MODERATE (NEGATIVE); NITRITE,URINE NEGATIVE (NEGATIVE); PROTEIN,URINE NEGATIVE (NEGATIVE); URINE SPECIFIC GRAVITY 1.012; UROBILINOGEN,URINE NEGATIVE mg/dL (<2.0)
[2019-02-10] MEDS ORDERED: CEFTRIAXONE 1 GM/D5W RTU 1 GM/50 ML RTUPB IV ONE (15:39)
[2019-02-10 16:59] VITALS: BP 105/55
== END 2019-02-10 17:29 | disposition home or self-care (01) ==
LOC: ER 10:18
DX: Z30.430 Encounter for insertion of intrauterine contraceptive device (principal); K22.4 Dyskinesia of esophagus
CPT/HCPCS: 99285; 96361; 96375; 96365; 36415; 87040; 87086; 87070; 87205; 83605; 83735; 84100; 85025; 87077; 87088; 80053; 81001; 87186; 87493; 82803; 71045; J1200; J7030; J0696

== ENCOUNTER → 2020-03-29 | Outpatient (CLI) | payer MEDICARE, BC ==
[2020-03-29 15:32] LABS: ALBUMIN 3.7 g/dL (3.5-5.0); ALKALINE PHOSPHATASE 176 U/L (38-126); ANION GAP 8 (5-19); ASPARTATE AMINO TRANSFERASE 31 U/L (14-36); BILIRUBIN,DIRECT 0.1 mg/dL (0.0-0.4); BILIRUBIN,TOTAL 0.6 mg/dL (0.2-1.3); BLOOD UREA NITROGEN 42 mg/dL (7-20); CALCIUM 9.7 mg/dL (8.4-10.2); CARBON DIOXIDE 27 mmol/L (22-30); CHLORIDE 105 mmol/L (98-107); GLUCOSE 126 mg/dL (75-110); PHOSPHORUS 3.9 mg/dL (2.5-4.5); POTASSIUM 4.2 mmol/L (3.6-5.0)
[2020-03-29 15:38] LABS: PREALBUMIN 25.4 mg/dL (17.6-36.0)
[2020-03-29 15:39] LABS: ABSOLUTE EOSINOPHILS # (AUTO) 0.1 10^3/uL (0.0-0.6); ABSOLUTE MONOCYTES (AUTO) 0.4 10^3/uL (0.1-1.4); BASOPHILS % (AUTO) 0.2 % (0-2); EOSINOPHILS % (AUTO) 1.5 % (0-6); HEMATOCRIT 25.6 % (36.0-47.0); HEMOGLOBIN 8.3 g/dL (12.0-15.5); LYMPHOCYTES % (AUTO) 22.4 % (13-45); MEAN CORPUSCULAR HEMOGLOBIN 24.8 pg (27.0-33.4); MEAN CORPUSCULAR HGB CONC 32.6 g/dL (32.0-36.0); MEAN CORPUSCULAR VOLUME 76 fl (80-97); MONOCYTES % (AUTO) 8.3 % (3-13); PLATELET COUNT 337 10^3/uL (150-450); RED BLOOD COUNT 3.36 10^6/uL (3.72-5.28); RED CELL DISTRIBUTION WIDTH 15.8 % (11.5-14.0); SEGMENTED NEUTROPHILS % (AUTO) 67.6 % (42-78); TOTAL CELLS COUNTED % (AUTO) 100 %; WHITE BLOOD COUNT 4.4 10^3/uL (4.0-10.5)
== END ==
LOC: HH 13:02
PROVIDERS: ATTEND Surgery Surgical Critical Care
DX: K91.2 Postsurgical malabsorption, not elsewhere classified (principal); D63.8 Anemia in other chronic diseases classified elsewhere
CPT/HCPCS: 80053; 83735; 84100; 84134; 85025

== ENCOUNTER → 2020-04-21 | Outpatient (CLI) | payer MEDICARE, BC ==
--- NOTE | 2020-04-21 12:38 | RADIOLOGY REPORT (SQ) ---
EXAM DESCRIPTION: CAROTID DOPPLER IMAGES COMPLETED DATE/TIME: 04/21/2020 11:19 am REASON FOR STUDY: BRUIT R09.89 OTH SYMPTOMS AND SIGNS INVOLVING THE CIRC AND RESP SY COMPARISON: None. TECHNIQUE: Grayscale ultrasound, Doppler velocity and spectra, and color Doppler images acquired of the extra-cranial carotid and vertebral arteries. Images stored on PACS. LIMITATIONS: None. FINDINGS: RIGHT CAROTID CCA Velocities: Within normal limits. ICA Velocities Peak systolic 148 cm/s. End diastolic 46 cm/s. Proximal ICA/CCA peak systolic ratio 1.47. Minimal intimal thickening. LEFT CAROTID CCA Velocities: Within normal limits. ICA Velocities Peak systolic 114 cm/s. End diastolic 38 cm/s. Proximal ICA/CCA peak systolic ratio 1.11. Minimal intimal thickening. VERTEBRAL ARTERIES: Antegrade flow. Normal waveforms. SUBCLAVIAN ARTERIES: No finding. OTHER: No other significant finding. IMPRESSION: NO HEMODYNAMICALLY SIGNIFICANT STENOSIS. COMMENT: Quality ID #[id number]: Velocity criteria are extrapolated from the diameter data as defined by t he Society of Radiologists in Ultrasound Consensus Conference. Radiology 2003: 229; 340-346. TECHNICAL DOCUMENTATION: JOB ID: [id number] 2010 [employer]- All Rights Reserved Reading location - IP/workstation name: [email or web address]
== END ==
LOC: RAD 10:02
PROVIDERS: ATTEND Internal Medicine Hematology & Oncology
DX: R09.89 Other specified symptoms and signs involving the circulatory and respiratory systems (principal)
CPT/HCPCS: 93880

== ENCOUNTER → 2020-10-18 | Outpatient (CLI) | payer MEDICARE, BC ==
[~2020-10-18] MED LIST: COVID-19 VACCINE (PFIZER)/PF 30 MCG/0.3 ML VIAL IM ONE; EPINEPHRINE INJ/PF 1 MG/1 ML AMPULE IM PRN
== END ==
LOC: EMPHEALTH 16:52
PROVIDERS: ATTEND Internal Medicine
DX: Z23 Encounter for immunization (principal)
CPT/HCPCS: 91300